=== PATIENT | female | born 1935 | race Caucasian/White ===

== ENCOUNTER 2016-05-27 09:55 | Inpatient (IN) ==
--- NOTE | 2016-05-27 10:08 | Emergency Department Note ---
Disposition Clinical Impression: Closed right hip fracture Qualifiers: Encounter type: initial encounter Qualified Code(s): S72.001A - Fracture of unspecified part of neck of right femur, initial encounter for closed fracture Disposition: Admitted As Inpatient Condition: Fair Forms: ED Satisfaction Letter Time of Disposition: 11:44 Fall HPI - General Chief Complaint: ED Fall Stated Complaint: Fall/ Right hip pain Time Seen by Provider: 05/27/16 10:01 Source: patient Mode of arrival: ambulatory Limitations: no limitations Nursing Notes Reviewed: Yes Vital Signs Reviewed: Yes - History of Present Illness HPI Narrative: 80-year-old states she was sitting paying bills for about an hour when she stood up she fell causing injury to her right hip. She has external rotation and shortening of the leg. She denies other injury. 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 From: standing Fall Witnessed: no Place Fall Occurred: home Loss of Consciousness: none Prolonged Down Time?: no Symptoms Prior to Fall: none Context: tripped/slipped Location of injury - extremities: Right: hip Severity: moderate, severe Quality: aching Associated symptoms (after fall): Reports: denies - Related Data Allergies Allergy/AdvReac Type Severity Reaction Status Date / Time No Known Allergies Allergy Verified 05/27/16 09:57 Constitutional: Denies: fever, chills, weakness, weight change Eyes: Denies: eye pain, eye discharge, vision change ENT ED: Denies: ear pain, throat pain, dental pain, hearing loss, epistaxis, congestion, dysphagia Cardiovascular: Denies: chest pain, palpitations, dyspnea on exertion, edema, syncope Respiratory: Denies: cough, dyspnea, wheezes, hemoptysis, stridor Gastrointestinal: Denies: abdominal pain, nausea, vomiting, diarrhea, constipation, hematemesis, melena, hematochezia Genitourinary: Denies: dysuria, frequency, hematuria, discharge Musculoskeletal: Reports: arthralgia. Denies: back pain, neck pain, myalgia Integumentary: Denies: rash, abrasion, lesions Neurological: Denies: headache, weakness, numbness, paresthesias, confusion, abnormal gait, vertigo Psychiatric: Denies: anxiety, depression, suicidal thoughts, homicidal thoughts , auditory hallucinations, visual hallucinations Endocrine: Denies: fatigue Hematological/Lymphatic: Denies: easy bleeding, easy bruising Allergic/Immunologic: Denies: facial swelling, urticaria Physical Exam - General Limitations: no limitations General appearance: alert, in no apparent distress - Head Head exam: atraumatic, normocephalic, normal inspection - Eye Eye exam: Present: normal appearance, PERRL, EOMI - ENT ENT exam: normal exam, normal oropharynx, mucous membranes moist - Neck Neck exam: Present: normal inspection, full ROM, trachea midline - Chest Chest inspection: Present: normal inspection, symmetric chest wall rise - Respiratory Respiratory exam: Present: normal lung sounds bilaterally - Cardiovascular Cardiovascular exam: Present: regular rate, normal rhythm, normal heart sounds - Abdominal Exam Abdominal exam: Present: soft, Non-Tender. Absent: tenderness, distention, guarding, rebound, rigidity - Expanded Lower Extremity Exam Hip/Pelvis exam: Present: tenderness, external rotation, shortening Neurovascular/Tendon exam: Absent: motor deficit, sensory deficit, tendon deficit Gait: not tested/not observed - Back Exam Back exam: Present: normal inspection, full ROM. Absent: tenderness - Neurological Exam Neurological exam: Present: alert, oriented X3 - Psychiatric Psychiatric exam: Present: normal affect, normal mood - Skin Skin exam: Present: warm, dry, intact, normal color Course - Reevaluation(s) Reevaluation #1: 80-year-old with a intertrochanteric fracture of the hip. Preop workup included chest x-ray which showed a possible pneumonia. I did review this with the hospitalist were to go ahead and just give her initial dose of antibiotics blood cultures and get a 2 view x-ray of the chest. She has had a cough. Time: 11:38 - Consultations Consultation #1: Discussed with Dr. Hernandez, admitted to hospitalist Time: 11:20 Consultation #2: Discussed with Yvette Lao CASINO ATTENDANT, admit. Time: 11:40 Vital Signs Temperature 97.9 F 05/27/16 09:57 Pulse Rate 64 05/27/16 09:57 Respiratory Rate 16 05/27/16 09:57 Blood Pressure 94/61 05/27/16 09:57 O2 Sat by Pulse Oximetry 91 L 05/27/16 09:57 Temperature 97.9 F 05/27/16 09:57 Pulse Rate 64 05/27/16 09:57 Respiratory Rate 16 05/27/16 09:57 Blood Pressure 94/61 05/27/16 09:57 O2 Sat by Pulse Oximetry 91 L 05/27/16 09:57 Oxygen Delivery Oxygen Delivery Room Air Fall - Lab Data Lab results reviewed: Yes I reviewed the patient's lab results. Result diagrams: 05/27/16 10:21 05/27/16 10:21 Lab Results 05/27/16 05/27/16 05/27/16 Range/Units 10:21 10:21 10:21 WBC 11.5 H (4.3-11.1) K/mcL RBC 2.70 L (3.82-4.97) M/mcL Hgb 9.4 L (11.5-15.4) g/dL Hct 28.4 L (35.3-44.9) % MCV 105.2 H (83.0-100.0) fL MCH 34.8 H (28.0-33.3) pg MCHC 33.1 (31.6-35.5) g/dL RDW 17.2 H (11.5-14.5) % Plt Count 206 (140-400) K/mcL MPV 12.0 (9.4-12.4) fL Immature Gran % 0.5 (0-4) % Seg Neutrophils % 63.9 % Lymphocytes % 22.0 % Monocytes % 8.9 % Eosinophils % 4.2 % Basophils % 0.5 % Neutrophils # 7.4 (1.6-8.9) K/mcL Lymphocytes # 2.5 (0.6-4.6) K/mcL Monocytes # 1.0 (0.0-1.3) K/mcL Eosinophils # 0.5 (0.0-0.6) K/mcL Basophils # 0.1 (0.0-0.2) K/mcL Nucleated RBCs/100 WBC 0.3 H (0) /100 WBC Immature Plt Fraction 7.3 H (1.1-6.1) % PT 11.9 (9.4-12.1) Seconds INR 1.1 APTT 27.0 (26.0-36.0) Seconds Sodium 140 (136-145) mEq/L Potassium 4.0 (3.5-4.5) mEq/L Chloride 106 (98-109) mEq/L Carbon Dioxide 24 (19-29) mEq/L BUN 31 H (7-20) mg/dL Creatinine 1.27 H (0.57-1.11) mg/dL Est GFR ( Amer) 49 L (> 60) Est GFR (Non-Af Amer) 41 L (> 60) BUN/Creatinine Ratio 24 (6-26) Glucose 139 H (70-99) mg/dL Calculated Osmolality 299 (280-300) Calcium 9.0 (8.6-10.8) mg/dL Blood Type Antibody Screen 05/27/16 Range/Units 10:21 WBC (4.3-11.1) K/mcL RBC (3.82-4.97) M/mcL Hgb (11.5-15.4) g/dL Hct (35.3-44.9) % MCV (83.0-100.0) fL MCH (28.0-33.3) pg MCHC (31.6-35.5) g/dL RDW (11.5-14.5) % Plt Count (140-400) K/mcL MPV (9.4-12.4) fL Immature Gran % (0-4) % Seg Neutrophils % % Lymphocytes % % Monocytes % % Eosinophils % % Basophils % % Neutrophils # (1.6-8.9) K/mcL Lymphocytes # (0.6-4.6) K/mcL Monocytes # (0.0-1.3) K/mcL Eosinophils # (0.0-0.6) K/mcL Basophils # (0.0-0.2) K/mcL Nucleated RBCs/100 WBC (0) /100 WBC Immature Plt Fraction (1.1-6.1) % PT (9.4-12.1) Seconds INR APTT (26.0-36.0) Seconds Sodium (136-145) mEq/L Potassium (3.5-4.5) mEq/L Chloride (98-109) mEq/L Carbon Dioxide (19-29) mEq/L BUN (7-20) mg/dL Creatinine (0.57-1.11) mg/dL Est GFR ( Amer) (> 60) Est GFR (Non-Af Amer) (> 60) BUN/Creatinine Ratio (6-26) Glucose (70-99) mg/dL Calculated Osmolality (280-300) Calcium (8.6-10.8) mg/dL Blood Type O POSITIVE Antibody Screen POSITIVE - Radiology Data Radiology results reviewed: Yes I reviewed the patient's radiology results. Chest X-Ray 05/27/16 10:01 IMPRESSION: 1. Patchy opacity in the right mid to lower lung with questionable small right pleural effusion. Pneumonia is not excluded. Consider further evaluation with dedicated two view chest x-ray. 2. Large hiatal hernia. D/ / 05/27/2016 11:16:04 Anastasiia Arroyo MD / earno Interpreting Provider: Anastasiia Arroyo MD Hip X-Ray 05/27/16 10:01 IMPRESSION: Acute comminuted, mildly displaced traumatic right intertrochanteric femoral fracture. D/ / 05/27/2016 11:16:27 Anastasiia Arroyo MD / [email or web address] Interpreting Provider: Anastasiia Arroyo MD
[2016-05-27 10:30] LABS: Basophils # 0.1 K/mcL (0.0-0.2); Basophils % 0.5 %; Eosinophils # 0.5 K/mcL (0.0-0.6); Eosinophils % 4.2 %; Hematocrit 28.4 % (35.3-44.9); Hemoglobin 9.4 g/dL (11.5-15.4); Immature Granulocytes % 0.5 % (0-4); Immature Platelets 7.3 % (1.1-6.1); Lymphocytes # 2.5 K/mcL (0.6-4.6); Mean Corpuscular HGB Conc 33.1 g/dL (31.6-35.5); Mean Corpuscular Hemoglobin 34.8 pg (28.0-33.3); Mean Corpuscular Volume 105.2 fL (83.0-100.0); Monocytes % 8.9 %; Neutrophils # 7.4 K/mcL (1.6-8.9); Nucleated Red Blood Cells 0.3 /100 WBC (0); Platelet Count 206 K/mcL (140-400); Red Cell Distribution Width 17.2 % (11.5-14.5); Segmented Neutrophils % 63.9 %
[2016-05-27 10:34] LABS: INR 1.1; Prothrombin Time 11.9 Seconds (9.4-12.1)
[2016-05-27] MEDS ORDERED: Azithromycin 500 MG in D5% in Water 250 ML IVPB ONE (11:37)
[2016-05-27] MEDS ORDERED: Ondansetron 4 MG/2 ML VIAL ONE (11:49)
[2016-05-27] MEDS ORDERED: 0.9 % Sodium Chloride 1,000 ML ONE (13:00)
[2016-05-27] MEDS ORDERED: 0.9 % Sodium Chloride 500 ML IVC ONE ×2 (13:00→22:09)
[2016-05-27] MEDS ORDERED: Ondansetron 4 MG/2 ML VIAL IVP PRN (13:46)
[2016-05-27] MEDS ORDERED: Naloxone 0.4 MG/ML INJ IVP PRN (13:46)
[2016-05-27] MEDS ORDERED: traMADol 50 MG TABLET PO PRN (13:52)
[2016-05-27] MEDS ORDERED: *HR* Morphine 2 MG/ML SYRINGE IVP PRN (13:57)
[2016-05-27] MEDS ORDERED: 0.9 % Sodium Chloride 1,000 ML IVC SCH (14:00)
--- NOTE | 2016-05-27 15:25 | Orthopedic Consult Note ---
Date of Encounter: 05/27/16 Time of Encounter: 12:45 Assessment and Plan (1) Closed right hip fracture Current Visit: Yes Status: Acute Xrays showed right femur intertrochanteric fracture which will require surgical fixation. Plan for right hip IM nailing to be performed tomorrow by Dr. Cervantes. At first family was considering transferring the patient to [place] for surgery but later decided to stay here at [place]. I returned around 18:00 and discussed the procedure as well as r/b/a again with family and they agreed to proceed with surgery. Pending cardiac clearance. NPO after breakfast tomorrow. Pain and nausea control per hospitalist. Qualifiers: Encounter type: initial encounter Qualified Code(s): S72.001A - Fracture of unspecified part of neck of right femur, initial encounter for closed fracture History of Present Illness Chief complaint: Right hip pain HPI: Ms. Monique is a 80 year old female who presented to the ER today for right hip pain after falling today. She states she was sitting for awhile and when she stood up her legs were weak and she fell landing on the right hip. She had instant pain in the hip that did not radiate. No pain currently on exam after receiving pain medication. Denies n/t in legs. Denies pain anywhere else. Denies hitting head or LOC. Denies chest pain, SOB, fevers. She typically ambulates well and lives at home with . Past Med Surg Social Fam HX - Past Medical History Medical history: CHF, hyperlipidemia Psychiatric history: no psych history - Social History Smoking Status: Former smoker Smokeless Tobacco Status: No Alcohol use: none Drug use: none - Family History Mother Living Status: Age at : 44 Cause of : cerebral hemorrhage Sister Age at : 45 Cause of : cerebal hemmorge Brother Living Status: Cause of : Cancer Son Living Status: Age at : 51 Cause of : cerebal hemmorhage Medications and Allergies Aspirin 81 mg PO DAILY 05/27/16 [History] Famotidine [Pepcid] 20 mg PO BID 05/27/16 [History] Furosemide [Lasix] 20 mg PO DAILY 05/27/16 [History] Loperamide HCl [Anti-Diarrheal] 2 mg PO DAILY PRN 05/27/16 [History] Losartan/Hydrochlorothiazide [Hyzaar 100-25 Tablet] 1 each PO DAILY 05/27/16 [ History] Mv-Mn/FA/Vit K/Lycop/Lut/Coq10 [Daily Multivitamin Capsule] 1 tab PO DAILY 05/27 [History] Potassium Chloride [Klor-Con Sprinkle] 10 meq PO DAILY 05/27/16 [History] Allergies No Known Allergies Allergy (Verified 05/27/16 12:29) All Systems Reviewed: A 10-system review of systems was performed and is negative for pertinent findings except as documented above in the HPI. - Constitutional Constitutional: as per HPI - Cardiovascular Cardiovascular: as per HPI - Respiratory Respiratory: as per HPI - Musculoskeletal Musculoskeletal: as per HPI Physical Exam - Constitutional Vitals: Temp Pulse Resp BP Pulse Ox 97.9 F 65 16 100/49 96 05/27/16 09:57 05/27/16 14:00 05/27/16 14:30 05/27/16 14:30 05/27/16 14:00 - Hip right Tenderness with palpation: anterior, posterior ROM: extension: abnormal (No open wounds, erythema or ecchymosis noted to the right hip, RLE is shortened and externaly rotated. Tenderness to palpation of posterior and anterior hip, ROM of hip and knee restricted secondary to pain and known fracture, good dorsiflexion of foot, no calf pain to palpation, NV intact.) Results - Labs Result Diagrams: 05/27/16 10:21 05/27/16 10:21 Labs: Abnormal lab results WBC 11.5 K/mcL (4.3-11.1) H 05/27/16 10:21 RBC 2.70 M/mcL (3.82-4.97) L 05/27/16 10:21 Hgb 9.4 g/dL (11.5-15.4) L 05/27/16 10:21 Hct 28.4 % (35.3-44.9) L 05/27/16 10:21 MCV 105.2 fL (83.0-100.0) H 05/27/16 10:21 MCH 34.8 pg (28.0-33.3) H 05/27/16 10:21 RDW 17.2 % (11.5-14.5) H 05/27/16 10:21 Nucleated RBCs/100 WBC 0.3 /100 WBC (0) H 05/27/16 10:21 Immature Plt Fraction 7.3 % (1.1-6.1) H 05/27/16 10:21 BUN 31 mg/dL (7-20) H 05/27/16 10:21 Creatinine 1.27 mg/dL (0.57-1.11) H 05/27/16 10:21 Est GFR ( Amer) 49 (> 60) L 05/27/16 10:21 Est GFR (Non-Af Amer) 41 (> 60) L 05/27/16 10:21 Glucose 139 mg/dL (70-99) H 05/27/16 10:21 All other labs normal. - Diagnostic results Hip x-ray: report reviewed, image reviewed Consult Discharge Plan - Plan Referrals: Adriel Thomas Jr, MD [Primary Care Provider] - - Attending Attestation Case and plan of care was discussed with the supervising physician who was available for all aspects of care.
--- NOTE | 2016-05-27 15:53 | Internal Med History&Physical ---
<Claribel Agudelo - Last Filed: 05/27/16 19:55> Internal Medicine - H&P: HPI History of present illness: Ms. Monique is a 80 year old female Internal Medicine - H&P: Meds Aspirin 81 mg PO DAILY 05/27/16 [History] Famotidine [Pepcid] 20 mg PO BID 05/27/16 [History] Furosemide [Lasix] 20 mg PO DAILY 05/27/16 [History] Loperamide HCl [Anti-Diarrheal] 2 mg PO DAILY PRN 05/27/16 [History] Losartan/Hydrochlorothiazide [Hyzaar 100-25 Tablet] 1 each PO DAILY 05/27/16 [ History] Mv-Mn/FA/Vit K/Lycop/Lut/Coq10 [Daily Multivitamin Capsule] 1 tab PO DAILY 05/27 [History] Potassium Chloride [Klor-Con Sprinkle] 10 meq PO DAILY 05/27/16 [History] Allergies No Known Allergies Allergy (Verified 05/27/16 12:29) All Systems PM: A 10-system review of systems was performed and is negative for pertinent findings except as documented above in the HPI. - Constitutional Vitals: Temp Pulse Resp BP Pulse Ox 97.9 F 65 16 100/49 96 05/27/16 09:57 05/27/16 14:00 05/27/16 14:30 05/27/16 14:30 05/27/16 14:00 Internal Med - H&P Results - Labs CBC & Chem 7: 05/27/16 10:21 05/27/16 10:21 - Attending Attestation I examined this patient and reviewed laboratory, imaging and all diagnostic data. My medical decision-making was reviewed with Margaux Trujillo CNP. I agree with the documented findings, disposition and treatment plan as described above. 80-year-old female with past medical history of hypertension, CKD,mod diastolic HF, mod TR, and sev pulm HTN per Echo in 10/2015. Patient had a mechanical fall at home on his right side. X-ray of her hip showed acute right hip fracture. Patient reports bilateral lower extremity swelling that is chronic. Physical examination is positive for cardiac murmur, and LE edema. Cardiology consulted for pre-op clearance. Hgb is 9.4. will continue to monitor and if below 8 will transfuse. kidney function at baseline. <Margaux Trujillo - Last Filed: 05/28/16 01:41> Date of Encounter: 05/27/16 Time of Encounter: 15:51 Assessment and Plan (1) Closed right hip fracture Current visit: Yes Status: Acute Patient suffered a fall at home with right leg pain. Xray of her right hip showed acute comminuted mildly displaced traumatic right intertrochanteric femoral fracture. Orthopedic surgery was consulted and Dr. Cervantes plans to operate late tomorrow afternoon. NPO after breakfast tomorrow Cardiology consulted for surgical clearance. Qualifiers: Encounter type: initial encounter Qualified Code(s): S72.001A - Fracture of unspecified part of neck of right femur, initial encounter for closed fracture (2) CAP (community acquired pneumonia) Current visit: Yes Status: Acute Patient reports cough over the last few days, but denies any fever, chills, loss of appetite or shortness of breath. She is afebrile and WBC is 11.5. CXR showed ground-glass airspace opacification in the right lower lobe and small pleural effusion. Azithromycin and Ceftriaxone IVPB IV fluids 0.9NS at 100mL/hr (3) Congestive heart failure Current visit: Yes Status: Chronic Patient does not report any history of CHF, She takes 20mg lasix for leg swelling. On exam, patient with systolic murmur and irregular rhythm. On review of records, patient had echocardiogram in October which showed EF 60-65%, normal LV size and function, moderate LV diastolic dysfunction, mild aortic stenosis, mild mitral stenosis, moderate tricuspid regurgitation, Severe pulmonary hypertension with RVSP of 67mmHg. Holding lasix for now as we are giving fluids for hypotension. Repeat echo ordered Cardiology consulted for surgical clearance. Qualifiers: Congestive heart failure type: diastolic Congestive heart failure chronicity: chronic Qualified Code(s): I50.32 - Chronic diastolic (congestive ) heart failure (4) Pain Current visit: Yes Status: Acute Pain related to right hip fracture PRN morphine narcan PRN for respiratory depression (5) Nausea Current visit: Yes Status: Acute Patient with nausea. PRN Zofran for nausea (6) Chronic kidney disease Current visit: Yes Status: Acute Patient's creatinine of 1.27 is down from previous values. Qualifiers: Chronic kidney disease stage: stage 3 (moderate) Qualified Code(s): N18.3 - Chronic kidney disease, stage 3 (moderate) (7) Anemia Current visit: Yes Status: Acute Patient with known history of anemia and has taken iron supplements in the past. Hgb of 9.4 is consistent with her baseline. No reports of bleeding. No indication for transfusion. Repeat CBC in the morning. Qualifiers: Anemia type: iron deficiency Iron deficiency anemia type: unspecified iron deficiency Qualified Code(s): D50.9 - Iron deficiency anemia, unspecified (8) Hypertension Current visit: Yes Status: Acute Patient takes Losartan/HCTZ for hypertension at home however, blood pressure has been running low. Will hold for now and continue to assess. IV fluids 0.9NS at 100mL/hr Qualifiers: Hypertension type: essential hypertension Qualified Code(s): I10 - Essential (primary) hypertension (9) DVT prophylaxis Current visit: Yes Status: Acute anti-embolic stockings calf compressors start pharmacologic prophylaxis after surgery Internal Medicine - H&P: HPI Chief complaint: fall, hip pain Admitted From: Emergency Dept Plans for Post Hospital Care: Home History of present illness: Ms. Monique is a 80 year old female with history of hypertension, anemia, CKD and remote cerebral aneurysm status post surgical repair, presented to the emergency department today after suffering a fall at home resulting in hip pain. Patient reports she was sitting at the table and felt like her right leg fell asleep, when she stood up she lost her balance and fell. She denies feeling dizzy or lightheadedness upon standing, she denies hitting her head, or losing consciousness. She had been in her right leg and was unable to ambulate. She reports she has had a cough the last few days. She denies any chest pain, palpitations, shortness of breath, fever, chills, sweats. The squad was called and she was brought to the emergency room. She received morphine in the ambulance and became nauseous. Evaluation in the emergency department included an x-ray of her right hip which showed acute comminuted mildly displaced traumatic right intertrochanteric femoral fracture. Dr. Cervantes was consult. Chest x-ray revealed groundglass airspace opacification in the right lower lobe and small pleural effusion. Patient's hemoglobin was 9.4 consistent with her baseline anemia, patient's creatinine was elevated to 1.27, but this is below her previous baseline. On exam, patient is pale, mildly diaphoretic, reporting she still feeling nauseous. Heart had irregular rhythm with systolic murmur, and she was bradycardic. Lungs were clear except for mild crackles in the right base. Her right leg was externally rotated and shortened. Sensation and movement intact in bilateral lower extremities. Positive peripheral pulses and capillary refill. She had +1 edema in left lower extremity and +2 in her right lower extremity. Past Med Surg Social Fam HX - Past Medical History Medical history: CHF, hyperlipidemia, hypertension, other (remote cerebral aneurysm s/p repair) Psychiatric history: no psych history - Past Surgical History Surgical History: cholecystectomy, vascular surgery (cerebral aneurysm repair) - Social History Smoking Status: Never smoker Smokeless Tobacco Status: No Alcohol use: none Drug use: none - Family History Mother Living Status: Age at : 44 Cause of : cerebral hemorrhage Sister Age at : 45 Cause of : cerebal hemmorge Brother Living Status: Cause of : Cancer Son Living Status: Age at : 51 Cause of : cerebal hemmorhage All Systems PM: A 10-system review of systems was performed and is negative for pertinent findings except as documented above in the HPI. - Constitutional Constitutional: falls, no chills, no fever(s), no night sweats - EENT Eyes: no change in vision, no discharge, no pain, no photophobia Ears: no ear discharge, no ear pain, no tinnitus Nose, mouth and throat: no dysphagia, no nasal discharge, no neck pain, no sore throat - Cardiovascular Cardiovascular ROS IM: diaphoresis, no chest pain, no dyspnea, no lightheadedness, no palpitations, no syncope - Respiratory Respiratory: cough, no dyspnea, no wheezing, no excessive phlegm production - Gastrointestinal Gastrointestinal: no abdominal pain, no diarrhea, no hematemesis, no hematochezia, no melena, no nausea, no vomiting - Genitourinary Genitourinary: no change in urinary stream, no dysuria, no flank pain, no hematuria - Musculoskeletal Musculoskeletal ROS IM: deformity (right leg rotated and shortened), limited range of motion (RLE), no numbness, no tingling - Integumentary Integumentary IM: no rash, no unusual bruising - Neurological Neurological ROS: no confusion, no convulsions, no focal weakness, no numbness, no tingling, no tremor(s) - Hematologic/Lymphatic Hematologic/Lymphatic: no easy bruising - Constitutional Vitals: Temp Pulse Resp BP Pulse Ox 97.9 F 65 16 100/49 96 05/27/16 09:57 05/27/16 14:00 05/27/16 14:30 05/27/16 14:30 05/27/16 14:00 General appearance: Present: mild distress, A&O X 3 - Head Head exam: Present: atraumatic, normocephalic - Eye Eye exam: Present: PERRL, conjuntiva pink, sclera anicteric Pupils: Present: PERRL - Neck Neck exam general surgery: Present: supple, trachea midline. Absent: lymphadenopathy - Respiratory Respiratory exam: Present: CTAB. Absent: accessory muscle use, rales, rhonchi, wheezes Additional comments: mild crackles in right base - Cardiovascular Cardiovascular exam: Present: bradycardia, irregular rhythm, +S1, +S2, systolic murmur. Absent: diastolic murmur, gallop, rubs - GI/Abdominal GI/Abdominal exam: Present: normal bowel sounds, soft, no peritoneal signs. Absent: distended, tenderness - Extremities Exam Extremities exam: Present: joint swelling, normal capillary refill, pedal edema (LLE +1, RLE +2 ), warm, radial pulses palpable and symetrical. Absent: calf tenderness, cyanotic Additional comments: RLE externally rotated and shortened. - Neurological Exam Neurological exam: Present: CN II-XII intact, oriented X3, no focal deficits. Absent: facial droop, speech deficit - Skin Skin exam: Present: dry, intact Internal Med - H&P Results - Labs CBC & Chem 7: 05/27/16 10:21 05/27/16 10:21 Labs: All Lab Results (24 Hours) 05/27/16 05/27/16 05/27/16 Range/Units 10:21 10:21 10:21 WBC 11.5 H (4.3-11.1) K/mcL RBC 2.70 L (3.82-4.97) M/mcL Hgb 9.4 L (11.5-15.4) g/dL Hct 28.4 L (35.3-44.9) % MCV 105.2 H (83.0-100.0) fL MCH 34.8 H (28.0-33.3) pg MCHC 33.1 (31.6-35.5) g/dL RDW 17.2 H (11.5-14.5) % Plt Count 206 (140-400) K/mcL MPV 12.0 (9.4-12.4) fL Immature Gran % 0.5 (0-4) % Seg Neutrophils % 63.9 % Lymphocytes % 22.0 % Monocytes % 8.9 % Eosinophils % 4.2 % Basophils % 0.5 % Neutrophils # 7.4 (1.6-8.9) K/mcL Lymphocytes # 2.5 (0.6-4.6) K/mcL Monocytes # 1.0 (0.0-1.3) K/mcL Eosinophils # 0.5 (0.0-0.6) K/mcL Basophils # 0.1 (0.0-0.2) K/mcL Nucleated RBCs/100 WBC 0.3 H (0) /100 WBC Immature Plt Fraction 7.3 H (1.1-6.1) % PT 11.9 (9.4-12.1) Seconds INR 1.1 APTT 27.0 (26.0-36.0) Seconds Sodium 140 (136-145) mEq/L Potassium 4.0 (3.5-4.5) mEq/L Chloride 106 (98-109) mEq/L Carbon Dioxide 24 (19-29) mEq/L BUN 31 H (7-20) mg/dL Creatinine 1.27 H (0.57-1.11) mg/dL Est GFR ( Amer) 49 L (> 60) Est GFR (Non-Af Amer) 41 L (> 60) BUN/Creatinine Ratio 24 (6-26) Glucose 139 H (70-99) mg/dL Calculated Osmolality 299 (280-300) Calcium 9.0 (8.6-10.8) mg/dL Blood Type Antibody Screen Antibody Identification 05/27/16 Range/Units 10:21 WBC (4.3-11.1) K/mcL RBC (3.82-4.97) M/mcL Hgb (11.5-15.4) g/dL Hct (35.3-44.9) % MCV (83.0-100.0) fL MCH (28.0-33.3) pg MCHC (31.6-35.5) g/dL RDW (11.5-14.5) % Plt Count (140-400) K/mcL MPV (9.4-12.4) fL Immature Gran % (0-4) % Seg Neutrophils % % Lymphocytes % % Monocytes % % Eosinophils % % Basophils % % Neutrophils # (1.6-8.9) K/mcL Lymphocytes # (0.6-4.6) K/mcL Monocytes # (0.0-1.3) K/mcL Eosinophils # (0.0-0.6) K/mcL Basophils # (0.0-0.2) K/mcL Nucleated RBCs/100 WBC (0) /100 WBC Immature Plt Fraction (1.1-6.1) % PT (9.4-12.1) Seconds INR APTT (26.0-36.0) Seconds Sodium (136-145) mEq/L Potassium (3.5-4.5) mEq/L Chloride (98-109) mEq/L Carbon Dioxide (19-29) mEq/L BUN (7-20) mg/dL Creatinine (0.57-1.11) mg/dL Est GFR ( Amer) (> 60) Est GFR (Non-Af Amer) (> 60) BUN/Creatinine Ratio (6-26) Glucose (70-99) mg/dL Calculated Osmolality (280-300) Calcium (8.6-10.8) mg/dL Blood Type O POSITIVE Antibody Screen POSITIVE Antibody Identification Known Anti-M - Diagnostic Studies Chest x-ray Additional comments: Chest X-Ray 05/27/16 11:37 IMPRESSION: Ground-glass airspace opacification in the right lower lobe and small pleural effusion. D/ / Rodo Nicholas MD / Rodo Nicholas MD Interpreting Provider: Rodo Nicholas MD Other Images Additional comments: Hip X-Ray 05/27/16 10:01 IMPRESSION: Acute comminuted, mildly displaced traumatic right intertrochanteric femoral fracture. D/ / 05/27/2016 11:16:27 Anastasiia Arroyo MD / prieto Interpreting Provider: Anastasiia Arroyo MD
--- NOTE | 2016-05-27 19:01 | Anesthesia Evaluation PreOp ---
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 History: Denies Any Significant HX Other Medical History: Renal (CRD) Anesthesia History: No Prior Anesthetic Complications, Past Anesthesia (Remote cerebral aneurysm repair, GB) : No Alcohol Use: none Drug use: none Medications and Allergies Aspirin 81 mg PO DAILY 05/27/16 [History] Famotidine [Pepcid] 20 mg PO BID 05/27/16 [History] Furosemide [Lasix] 20 mg PO DAILY 05/27/16 [History] Loperamide HCl [Anti-Diarrheal] 2 mg PO DAILY PRN 05/27/16 [History] Losartan/Hydrochlorothiazide [Hyzaar 100-25 Tablet] 1 each PO DAILY 05/27/16 [ History] Mv-Mn/FA/Vit K/Lycop/Lut/Coq10 [Daily Multivitamin Capsule] 1 tab PO DAILY 05/27 [History] Potassium Chloride [Klor-Con Sprinkle] 10 meq PO DAILY 05/27/16 [History] Allergies No Known Allergies Allergy (Verified 05/27/16 12:29) - Meds/Allergy Pre-op Review Medications Reviewed: Yes Allergies Reviewed: Yes Beta Blockers on Current Med List: No Anesthesia Results - Labs 05/27/16 10:21 05/27/16 10:21 ECHO 10/26/15 EF-60-65% Mod. LV diastolic dysfunction Mod. Aortic stenosis - Imaging EKG: other (Ordered, not done yet) Anesthesia Exam O2 Sat Height 1.45 m Weight 68.946 kg O2 Sat by Pulse Oximetry 96 O2 Sat by Pulse Oximetry 98 O2 Sat by Pulse Oximetry 98 O2 Sat by Pulse Oximetry 98 O2 Sat by Pulse Oximetry 100 O2 Sat by Pulse Oximetry 100 O2 Sat by Pulse Oximetry 91 Vital Signs Temp Pulse Resp BP Pulse Ox 97.9 F 64 16 94/61 91 L 05/27/16 09:57 05/27/16 09:57 05/27/16 09:57 05/27/16 09:57 05/27/16 09:57 Vital Signs/O2 Sat, Most Current Temp Pulse Resp BP Pulse Ox 97.9 F 65 16 100/49 96 05/27/16 09:57 05/27/16 14:00 05/27/16 14:30 05/27/16 14:30 05/27/16 14:00 Height: 4'9'' Weight: 152# NPO (# of Hours): > 8 hrs Pain Scale: 0 Pain Scale Used: Numeric (1 - 10) - HEENT Pupil (Motor): Pupils equal, EOMI Mallampati: II Teeth: Edentulous Denture Type: Upper: Complete, Partial Oral Opening: Greater than 3 - GANG BORE OPERATOR LOC: Oriented GANG BORE OPERATOR Motor: Normal RUE, Normal LUE, Normal RLE, Normal LLE, Normal Face GANG BORE OPERATOR Sensory: Normal: RUE, LUE, RLE, LLE, Face - Cardiac Rhythm: Regular Murmur: None JVD: No Carotid Bruit: No - Pulmonary Breath Sounds: bilateral Clear Respiratory Effort: Symmetrical Anesthesia Assess/Plan ASA Score: 3 Modified Pullman Scale for Level of Consciousness: Cooperative, oriented, and tranquil Anesthetic Plan: General Autologous Blood: Yes Monitoring Plan: Standard Monitors Recovery Plan: PACU
[2016-05-27] MEDS ORDERED: Famotidine 20 MG TABLET PO SCH (21:00)
[2016-05-28] MEDS ORDERED: 0.9 % Sodium Chloride 250 ML IVC ONE (04:12)
[2016-05-28 05:20] LABS: Basophils % 0.4 %; Eosinophils # 0.1 K/mcL (0.0-0.6); Eosinophils % 1.3 %; Hemoglobin 7.5 g/dL (11.5-15.4); Immature Granulocytes % 0.4 % (0-4); Lymphocytes # 1.2 K/mcL (0.6-4.6); Lymphocytes % 17.2 %; Mean Corpuscular HGB Conc 32.6 g/dL (31.6-35.5); Mean Corpuscular Volume 107.5 fL (83.0-100.0); Mean Platelet Volume 12.7 fL (9.4-12.4); Monocytes % 14.6 %; Neutrophils # 4.4 K/mcL (1.6-8.9); Nucleated Red Blood Cells 0.3 /100 WBC (0); Platelet Count 146 K/mcL (140-400); Red Blood Count 2.14 M/mcL (3.82-4.97); Red Cell Distribution Width 17.3 % (11.5-14.5); Segmented Neutrophils % 66.1 %
[2016-05-28 05:35] LABS: Calcium 7.9 mg/dL (8.6-10.8); Potassium 4.5 mEq/L (3.5-4.5)
[2016-05-28] MEDS ORDERED: Furosemide 20 MG TABLET PO SCH (09:00)
[2016-05-28] MEDS ORDERED: Aspirin 81 MG TAB.CHEW PO SCH (09:00)
[2016-05-28] MEDS ORDERED: 0.9 % Sodium Chloride 250 ML ONE (09:29)
--- NOTE | 2016-05-28 09:30 | ECHO - Doppler Report ---
Echocardiogram Name: Mary Monique Date of Study: 05/27/2016 Date: 1935 Ht: 57.0 in Medical Record#: [id number] Age: 80 Wt: 152.0 lb Gender: Female BSA: 1.6 Order #: [id number] Location: [facility] Room #: [facility] Reading Physician: Gabino Ruiz MD, LOCATED [facility] Director Of Customer Service: Mireya Rangel Ordering Physician: Margaux Trujillo CNP Primary Physician: Adriel Thomas MD Indications: Pre-op clearance, abnormal EKG Impressions: Sinus rhythm with frequent PACs. Normal LV systolic function, LVEF 60-65%. Moderate left ventricular diastolic dysfunction. Normal right ventricular size and function. Mildly dilated left atrium. Moderately thickened/calcified aortic valve leaflets. Valve morphology was not well visualized. Probably trileaflet. Mild-moderate aortic stenosis. Moderate tricuspid regurgitation. Mild-moderate pulmonary hypertension. Estimated RVSP = 46 mmHg. There is a small pericardial effusion seen adjacent to the right atrium. There is no echocardiographic evidence of tamponade. Left Ventricular Wall Motion: Rest Echo Findings All wall segments showed normal motion. Findings: Study Quality * Technically adequate exam. ECG Findings * Sinus rhythm with frequent PACs. Left Ventricle * Normal LV systolic function, LVEF 60-65%. * Normal LV chamber size and wall thickness. * Moderate left ventricular diastolic dysfunction. Right Ventricle * Normal right ventricular size and function. Left Atrium * Mildly dilated left atrium. Right Atrium * Normal right atrial size. Aorta * Normally sized aortic root. Pericardium * There is a small pericardial effusion seen adjacent to the right atrium. * There is no echocardiographic evidence of tamponade. IVC * Normal IVC dimensions and inspiratory collapse. Aortic Valve * Moderately thickened/calcified aortic valve leaflets. Valve morphology was not well visualized. Probably trileaflet. * Mild-moderate aortic stenosis. * Trace aortic regurgitation. Mitral Valve * Moderate mitral annular calcification * No mitral stenosis. * Trace mitral regurgitation. Tricuspid Valve * Normal tricuspid valve structure. * No tricuspid stenosis. * Moderate tricuspid regurgitation. * Mild-moderate pulmonary hypertension. Estimated RVSP = 46 mmHg. Pulmonic Valve * Pulmonic valve not well visualized. * No pulmonic stenosis. * Trace pulmonic regurgitation. History Hypertension Family History of CAD Congestive Heart Failure 10/26/2015 a Previous Echo was performed. Measurements: BP: 100/ 49 2D Normal Values RVIDd: 2.20 cm IVSd: .90 cm 0.6 - 1.0 cm LVIDd: 3.70 cm 3.7 - 5.6 cm LVPWd: .90 cm 0.6 - 1.1 cm LVIDs: 2.40 cm 1.5 - 3.6 cm AO: 2.50 cm < 4.0 cm %FS: 35.10 cm >25 % LVOT Diam: 2.00 cm LA volume: 58 Mitral Valve Peak E:1.26 m/sec Peak A:1.25 m/sec E/A Ratio:1 Peak E' Lat Wilder:6.24 cm/s Peak E' Med Wilder:8.09 cm/s E/E' Lat Ratio:20.2 E/E' Med Ratio:15.6 Aortic Valve Peak Wilder:2.50 m/sec Peak Grad:25.00 mmHg Mean Grad:14.00 mmHg Valve Area:1.39 cm2 Tricuspid Valve TV Regurg Peak Grad: 43.00mmHg TV Regurg Peak Wilder: 3.28m/sec Updated by Gabino Ruiz MD, FACC on 05/28/2016 9:26:29 AM electronically signed on 05/28/2016 9:27:15 AM with status of Final Wall Motion Wagner: 1=Normal, 2=Hypokinesis, 3=Akinesis, 4=Dyskinesis, 5=Aneurysmal, 6=Hyperkinetic, X=Not Visualized (Blank)=Missing
--- NOTE | 2016-05-28 12:27 | Internal Med Progress Note ---
Date of Encounter: 05/28/16 Time of Encounter: 07:30 - Assessment and plan (1) Closed right hip fracture Current Visit: Yes Status: Acute Assessment and plan: Patient suffered a mechanical fall at home with right leg pain. Xray of her right hip showed acute comminuted mildly displaced traumatic right intertrochanteric femoral fracture. Appreciate Orthopedic surgery help. PLAN for surgery this afternoon. Cardiology consulted for surgical clearance. Qualifiers: Encounter type: initial encounter Qualified Code(s): S72.001A - Fracture of unspecified part of neck of right femur, initial encounter for closed fracture (2) Acute blood loss anemia Current Visit: Yes Status: Acute Assessment and plan: PAtient has Chronic anemia but baseline Hgb is ~10. This morning, hgb dropped to 7.5. This is secondary to hip fracture. Transfuse 1 unit PRBC. repeat Hgb after transfusion. (3) CAP (community acquired pneumonia) Current Visit: Yes Status: Acute Assessment and plan: Patient reports cough over the last few days, but denies any fever, chills, loss of appetite or shortness of breath. She is afebrile and WBC is 11.5. CXR showed ground-glass airspace opacification in the right lower lobe and small pleural effusion. Azithromycin and Ceftriaxone IVPB REceived IVF. slowly improving. (4) Hypotension Current Visit: Yes Status: Acute Assessment and plan: hypovolemic hypotension due to acute blood loss. 10/2015: Echocardiogram showed EF 60-65%, normal LV size and function, moderate LV diastolic dysfunction, mild aortic stenosis, mild mitral stenosis, moderate tricuspid regurgitation, Severe pulmonary hypertension with RVSP of 67mmHg. Troponin negative x1 MAP adequate. received IV fluids. Now transfusing PRBC. Qualifiers: Hypotension type: other hypotension type Qualified Code(s): I95.89 - Other hypotension (5) Diastolic heart failure Current Visit: Yes Status: Acute Assessment and plan: Chronic LE edema and poor functional capacity. 10/2015: Echocardiogram showed EF 60-65%, normal LV size and function, moderate LV diastolic dysfunction, mild aortic stenosis, mild mitral stenosis, moderate tricuspid regurgitation, Severe pulmonary hypertension with RVSP of 67mmHg. check BNP. Qualifiers: Heart failure chronicity: chronic Qualified Code(s): I50.32 - Chronic diastolic (congestive) heart failure (6) Chronic kidney disease Current Visit: Yes Status: Acute Assessment and plan: at baseline. Close monitoring. avoid nephrotoxic agents as possible. Qualifiers: Chronic kidney disease stage: stage 3 (moderate) Qualified Code(s): N18.3 - Chronic kidney disease, stage 3 (moderate) (7) Pain Current Visit: Yes Status: Acute Assessment and plan: IV morphine prn - Subjective Interval history: Her BP is 78/51, MAP 64. Patient denies any shortness of breath, dizziness, headaches or chest pain. Her only complaint is pain in her right hip. - Constitutional Vitals: Temp Pulse Resp BP Pulse Ox 98.2 F 85 18 74/62 98 05/28/16 10:05 05/28/16 10:05 05/28/16 10:05 05/28/16 10:05 05/28/16 10:05 General appearance: Present: cooperative, mild distress, A&O X 3, pleasant, no acute distress, answers questions appropriately - Respiratory Respiratory exam: Present: rales (at right lung base) - Cardiovascular Cardiovascular exam: Present: RRR - GI/Abdominal GI/Abdominal exam: Present: normal bowel sounds, soft. Absent: distended, tenderness - Extremities Exam Extremities exam: Present: pedal edema - Back Exam Back exam: Absent: CVA tenderness (L), CVA tenderness (R) - Neurological Exam Neurological exam: Present: alert, oriented X3, no focal deficits, strengths equal and symetr throughout. Absent: facial droop, speech deficit - Skin Skin exam: Absent: rash Internal Medicine: Result - Labs CBC & Chem 7: 05/28/16 05:10 05/28/16 05:10 Labs: Short CBC 05/28/16 Range/Units 05:10 WBC 6.7 (4.3-11.1) K/mcL Hgb 7.5 L D (11.5-15.4) g/dL Hct 23.0 L (35.3-44.9) % Plt Count 146 (140-400) K/mcL Neutrophils # 4.4 (1.6-8.9) K/mcL BMP 05/28/16 05:10 Sodium 138 Potassium 4.5 Chloride 106 Carbon Dioxide 22 BUN 36 H Creatinine 1.54 H Glucose 87 Calcium 7.9 L Cardiac Enzymes 05/28/16 Range/Units 05:10 Troponin I 0.00 (0-0.03) ng/mL - ABG Interpretation ABG results: PT/INR, D-dimer PT 11.9 Seconds (9.4-12.1) 05/27/16 10:21 Consult Discharge Plan - Plan Referrals: Adriel Thomas Jr, MD [Primary Care Provider] -
--- NOTE | 2016-05-28 12:39 | Cardiology Consult Note ---
<Mallory Foster Tika - Last Filed: 05/28/16 12:48> Date of Encounter: 05/28/16 Time of Encounter: 11:00 Assessment and Plan (1) Congestive heart failure Current Visit: Yes Status: Chronic Patient ECHO LVEF 60-65%, moderate LV diastolic dysfunction, moderate thick/ calcified aortic valve, mild to moderate , moderate TR, mild to moderate Pulmonary HTN, pericardial effusion adjacent to Right atium, no evidence of tamponade Echo unchanged October, showed EF 60-65%, normal LV size and function, moderate LV diastolic dysfunction, mild aortic stenosis, mild mitral stenosis, moderate tricuspid regurgitation, Severe pulmonary hypertension with RVSP of 67mmHg. Patient takes 20mg lasix, which is being held due to hypotension and hypovolemia EKG NSR with frequent PACs Plan: Hold lasx for hypotension/hypovolemia Qualifiers: Congestive heart failure type: diastolic Congestive heart failure chronicity: chronic Qualified Code(s): I50.32 - Chronic diastolic (congestive ) heart failure (2) Acute blood loss anemia Current Visit: Yes Status: Acute Hb trending down today with repeat measurements of hypotension Lowest recorded MAP 64 Concern for blood loss Primary team is transfusing 1 unit of blood (3) Hypotension Current Visit: Yes Status: Acute BP 72/60, MAP 64 Hold Losartan/HCTZ and Lasix Patient currently being transfused 1u RBCs Qualifiers: Hypotension type: other hypotension type Qualified Code(s): I95.89 - Other hypotension Discussion w patient/family: The assessment and plan as outlined above was discussed with the patient and/or family members who expressed understanding and agreement. All questions were answered. Thank you for involving us in the care of your patient. Please call with any questions. History of Present Illness Consult date: 05/27/16 Requesting physician: Margaux Trujillo Consult reason: Clearance for surgery Chief complaint: Right hip fracture History of present illness: Ms. Monique is a 80 year old female who presented to [facility] due to Right hip fracture following fall at home. Patient was paying bills at the kitchen table. When she tried to stand from seated position, patient slid to the floor. She was in intense pain to right hip, according to her who tried to assist her. Patient states that she did not faint or black out. She denies hitting her head. She did not feel dizzy at time of incident. Patient states that she felt as though her leg had gone to sleep. Patient denies chest pain or dyspnea at this time. She denies having prior history of CAD. Denies DC, previous stress, previous stress. Admits to history of smoking. Admits to history of HTN. Past Med Surg Social Fam HX - Past Medical History Medical history: CHF, hyperlipidemia, hypertension, other (remote cerebral aneurysm s/p repair) Psychiatric history: no psych history - Past Surgical History Surgical History: cholecystectomy, vascular surgery (cerebral aneurysm repair) - Social History Smoking Status: Never smoker Smokeless Tobacco Status: No Alcohol use: none Drug use: none - Family History Mother Living Status: Age at : 44 Cause of : cerebral hemorrhage Sister Age at : 45 Cause of : cerebal hemmorge Brother Living Status: Cause of : Cancer Son Living Status: Age at : 51 Cause of : cerebal hemmorhage Medications and Allergies Aspirin 81 mg PO DAILY 05/27/16 [History] Famotidine [Pepcid] 20 mg PO BID 05/27/16 [History] Furosemide [Lasix] 20 mg PO DAILY 05/27/16 [History] Loperamide HCl [Anti-Diarrheal] 2 mg PO DAILY PRN 05/27/16 [History] Losartan/Hydrochlorothiazide [Hyzaar 100-25 Tablet] 1 each PO DAILY 05/27/16 [ History] Mv-Mn/FA/Vit K/Lycop/Lut/Coq10 [Daily Multivitamin Capsule] 1 tab PO DAILY 05/27 [History] Potassium Chloride [Klor-Con Sprinkle] 10 meq PO DAILY 05/27/16 [History] Allergies No Known Allergies Allergy (Verified 05/27/16 12:29) All Systems Review: A 10-system review of systems was performed and is negative for pertinent findings except as documented above in the HPI. Physical Examination Vital Signs, Last 4 Hours Temp Pulse Resp BP Pulse Ox 05/28/16 10:05 98.2 F 85 18 74/62 98 05/28/16 09:50 98.1 F 89 16 72/60 99 General: Conversant, No Apparent Distress HEENT: Atraumatic, Normocephaly, Mucus Membranes Moist Neck: No JVD, Normal carotid pulses, Other (Left carotid bruit. Unable to appreciate bruit to right carotid due to poor patient compliance with exam) Cardiac: Normal S1 and S2, Other (Irregular rhythm (frequent PACs on EKG noted) , systolic murmur to right sternal border, systolic murmur to left lower sternal border) Lungs: Normal Breath Sounds, No Wheeze, Rales, Rhonchi Neuro: Alert and responsive, No focal deficits noted Abdomen: Soft, Non-Tender Skin: Other (Large ecchymosis to right back) Extremities: No Clubbing, No Cyanosis, Normal Pulses, Other (1+ pitting edema to right leg) Results 05/28/16 05:10 05/28/16 05:10 Lab Results 05/28/16 05/28/16 05/28/16 05:10 05:10 05:10 WBC 6.7 Hgb 7.5 L D Hct 23.0 L Plt Count 146 Sodium 138 Potassium 4.5 Chloride 106 Carbon Dioxide 22 BUN 36 H Creatinine 1.54 H Glucose 87 Calcium 7.9 L Magnesium 2.0 Troponin I 0.00 - Imaging and Cardiology Chest Xray: report reviewed, image reviewed Echo: report reviewed - EKG Interpretation EKG results cardiology: personally reviewed, sinus rhythm (frequent PACs, HR 53) Consult Discharge Plan - Plan Referrals: Adriel Thomas Jr, MD [Primary Care Provider] - <Мария Gray - Last Filed: 05/28/16 13:58> Assessment and Plan Discussion w patient/family: The assessment and plan as outlined above was discussed with the patient and/or family members who expressed understanding and agreement. All questions were answered. Thank you for involving us in the care of your patient. Please call with any questions. History of Present Illness History of present illness: Ms. Monique is a 80 year old female All Systems Review: A 10-system review of systems was performed and is negative for pertinent findings except as documented above in the HPI. Physical Examination Vital Signs, Last 4 Hours Temp Pulse Resp BP Pulse Ox 05/28/16 10:05 98.2 F 85 18 74/62 98 05/28/16 09:50 98.1 F 89 16 72/60 99 Results 05/28/16 05:10 05/28/16 05:10 Lab Results 05/28/16 05/28/16 05/28/16 05:10 05:10 05:10 WBC 6.7 Hgb 7.5 L D Hct 23.0 L Plt Count 146 Sodium 138 Potassium 4.5 Chloride 106 Carbon Dioxide 22 BUN 36 H Creatinine 1.54 H Glucose 87 Calcium 7.9 L Magnesium 2.0 Troponin I 0.00 - Attending Attestation I examined this patient and my medical decision-making was reviewed with the CONFERENCE PLANNER/PA/Advanced Practice Nurse/Resident Physician. I agree with the documented findings, disposition and treatment plan. Ms. Monique had what appears to be a mechanical fall from her chair resulting in a right hip fracture. She denies loss of consciousness or frequent falls. She denies a history of CAD, CHF or DC. She also denies cardiac symptoms. She denies chest pain, worsening dyspnea or palpitations. Prior to her fall, she admits to fair functional capacity. She underwent an echo demonstrating normal LV and RV function with valvular abnormalities that are not severe and warrant no further attention at this time. Based upon these data, she is at acceptable cardiac risk. However, she is anemic with a drop in blood count to 7.5 and hypotensive suggesting bleeding. In this setting, there is a risk of cardiac ischemia which would increase her perioperative cardiovascular risk. Will defer to surgical team to decide on the urgency of surgery.
[2016-05-28] MEDS ORDERED: *HR* Propofol 200 MG/20 ML VIAL IVP ONE (14:29)
[2016-05-28] MEDS ORDERED: *HR* FentaNYL (PF) 100 MCG/2 ML VIAL ONE (14:29)
[2016-05-28] MEDS ORDERED: Azithromycin 500 MG in D5% in Water 250 ML IVPB SCH (15:00)
[2016-05-28] MEDS ORDERED: Lidocaine -MPF 2% 2 ML VIAL ONE (15:41)
[2016-05-28] MEDS ORDERED: Ondansetron 4 MG/2 ML VIAL ONE (16:36)
[2016-05-28] MEDS ORDERED: Dexamethasone 4 MG/ML VIAL ONE (16:36)
[2016-05-28] MEDS ORDERED: Ondansetron 4 MG/2 ML VIAL IVP PRN ×2 (17:36→20:40)
[2016-05-28] MEDS ORDERED: Naloxone 0.4 MG/ML INJ IVP PRN ×3 (17:36→20:40)
[2016-05-28] MEDS ORDERED: *HR* Morphine 2 MG/ML SYRINGE IVP PRN ×2 (17:36→20:40)
--- NOTE | 2016-05-28 19:08 | Anesthesia Evaluation Post Op ---
Date of Encounter: 05/28/16 Time of Encounter: 19:07 - Vital Signs Vital Signs: Vital Signs/O2 Sat, Most Current Temp Pulse Resp BP Pulse Ox 98.2 F 91 18 107/58 99 05/28/16 18:35 05/28/16 18:45 05/28/16 18:45 05/28/16 18:45 05/28/16 18:45 - Lungs Lungs: Clear Ascult./Percussion - Airway Airway: Non-obstructed - Cardiovascular Regular Rate - Mental Status Mental Status: Alert & Oriented, Answers Appropriately - Pain Pain Scale: 0 Pain Scale used: Numeric (1 - 10) - Nausea Vomiting Nausea Vomiting: Not Present - Hydration Hydration: NPO, Has not voided - Discharge PostOp Status: Transfer Patient to floor
[2016-05-28 20:22] LABS: Hematocrit 30.7 % (35.3-44.9)
[2016-05-28 20:24] LABS: Hemoglobin 10.2 g/dL (11.5-15.4)
[2016-05-28] MEDS ORDERED: 0.9 % Sodium Chloride 500 ML IVC ONE (20:40)
[2016-05-28] MEDS ORDERED: *HR* HYDROcodone/Acet 5/325 mg TABLET PO PRN (20:40)
[2016-05-28] MEDS ORDERED: Sennosides 8.6 MG TABLET PO PRN (20:40)
[2016-05-28] MEDS ORDERED: Ringers Solution, Lactated 1,000 ML IVC SCH (20:40)
[2016-05-28 21:17] LABS: Hematocrit 27.5 % (35.3-44.9)
[2016-05-29 05:55] LABS: Basophils % 0.2 %; Eosinophils % 0.1 %; Hematocrit 23.9 % (35.3-44.9); Hemoglobin 7.9 g/dL (11.5-15.4); Immature Granulocytes % 0.4 % (0-4); Lymphocytes # 0.8 K/mcL (0.6-4.6); Lymphocytes % 9.3 %; Mean Corpuscular HGB Conc 33.1 g/dL (31.6-35.5); Mean Corpuscular Hemoglobin 33.1 pg (28.0-33.3); Mean Platelet Volume 12.6 fL (9.4-12.4); Monocytes # 1.2 K/mcL (0.0-1.3); Monocytes % 14.3 %; Neutrophils # 6.4 K/mcL (1.6-8.9); Nucleated Red Blood Cells 0.2 /100 WBC (0); Platelet Count 131 K/mcL (140-400); Red Blood Count 2.39 M/mcL (3.82-4.97); Red Cell Distribution Width 20.9 % (11.5-14.5); Segmented Neutrophils % 75.7 %
[2016-05-29 06:03] LABS: Calcium 7.7 mg/dL (8.6-10.8); Potassium 4.8 mEq/L (3.5-4.5)
--- NOTE | 2016-05-29 07:25 | Electrocardiograph Report ---
[address] [place] [address] Test Date: 2016-05-27 Pat Name: Mary Monique Department: 104 Room: [facility] Gender: F Diet Counselor: [facility] : 1935 Requested By: Valentin Camarena Order Number: [id number] Reading MD: Jono Kuhn MD Measurements Intervals [place] Rate: 53 P: 91 PA: 183 QRS: 11 QRSD: 91 T: 19 QT: 439 QTc: 421 Interpretive Statements SINUS BRADYCARDIA WITH OCCASIONAL SUPRAVENTRICULAR PREMATURE COMPLEXES ANTERIOR MYOCARDIAL INFARCTION, OF INDETERMINATE AGE Electronically Signed On 05-29-2016 7:23:16 EDT by Jono Kuhn MD
[2016-05-29] MEDS: Cholecalciferol (D-3) 1,000 UNIT TABLET PO SCH (08:12)
--- NOTE | 2016-05-29 08:38 | Internal Med Progress Note ---
Date of Encounter: 05/29/16 Time of Encounter: 08:36 - Assessment and plan (1) Closed right hip fracture Current Visit: Yes Status: Acute Assessment and plan: Status post surgery with IM nailing. Being well postprocedure. Continue physical therapy. Pain control. On tramadol as needed. Moderate risk for complications. Qualifiers: Encounter type: initial encounter Qualified Code(s): S72.001A - Fracture of unspecified part of neck of right femur, initial encounter for closed fracture (2) Chronic kidney disease Current Visit: Yes Status: Chronic Assessment and plan: Renal function remains at baseline. Lasix on hold. Qualifiers: Chronic kidney disease stage: stage 3 (moderate) Qualified Code(s): N18.3 - Chronic kidney disease, stage 3 (moderate) (3) CAP (community acquired pneumonia) Current Visit: Yes Status: Acute Assessment and plan: Blood cultures remained negative. No fever. Leukocytosis resolved. (4) Acute blood loss anemia Current Visit: Yes Status: Acute Assessment and plan: Hemoglobin 7.9 today. Status post 2 units packed red blood cell transfusion yesterday before surgery. Will monitor blood counts. (5) Hypotension Current Visit: Yes Status: Resolved Assessment and plan: This has now resolved. Holding antihypertensives for now. Qualifiers: Hypotension type: other hypotension type Qualified Code(s): I95.89 - Other hypotension (6) Diastolic heart failure Current Visit: Yes Status: Chronic Assessment and plan: Supportive care. Lasix on hold for now. Cardiology has evaluated patient. Appreciate input. Qualifiers: Heart failure chronicity: chronic Qualified Code(s): I50.32 - Chronic diastolic (congestive) heart failure - Subjective Interval history: Patient feels better today. Pain is controlled in the right hip. She is working with physical therapy. Denies any chest pain. No shortness of breath. No other acute issues overnight. - Constitutional Vitals: Temp Pulse Resp BP Pulse Ox 98.1 F 78 14 107/52 100 05/29/16 07:02 05/29/16 07:02 05/29/16 07:02 05/29/16 07:02 05/29/16 07:02 General appearance: Present: cooperative, mild distress, A&O X 3, pleasant, answers questions appropriately - Neck Neck exam general surgery: Present: supple, trachea midline. Absent: lymphadenopathy - Cardiovascular Cardiovascular exam: Present: RRR, +S1, +S2, systolic murmur. Absent: diastolic murmur, gallop, rubs - GI/Abdominal GI/Abdominal exam: Present: normal bowel sounds, soft, no peritoneal signs. Absent: distended, tenderness - Extremities Exam Extremities exam: Present: tenderness (Right hip region), warm, radial pulses palpable and symetrical. Absent: calf tenderness, cyanotic, pedal edema - Neurological Exam Neurological exam: Present: alert, oriented X3, no focal deficits. Absent: facial droop, speech deficit - Skin Skin exam: Present: dry, intact Internal Medicine: Result - Labs CBC & Chem 7: 05/29/16 04:56 05/29/16 04:56 Labs: Short CBC 05/28/16 05/28/16 05/29/16 Range/Units 19:02 21:03 04:56 WBC 8.4 (4.3-11.1) K/mcL Hgb 10.2 L D 9.0 L 7.9 L (11.5-15.4) g/dL Hct 30.7 L 27.5 L 23.9 L (35.3-44.9) % Plt Count 131 L (140-400) K/mcL Neutrophils # 6.4 (1.6-8.9) K/mcL BMP 05/29/16 04:56 Sodium 138 Potassium 4.8 H Chloride 109 Carbon Dioxide 24 BUN 35 H Creatinine 1.43 H Glucose 117 H Calcium 7.7 L - ABG Interpretation ABG results: PT/INR, D-dimer PT 11.9 Seconds (9.4-12.1) 05/27/16 10:21 - Impressions Impressions Fluoroscopy 05/28/16 15:34 IMPRESSION: Intraprocedural fluoroscopic spot images as above. See separate procedure report for more information. D/ / Gabby Melgar MD / Gabby Melgar MD Interpreting Provider: Gabby Melgar MD Consult Discharge Plan - Plan Referrals: Adriel Thomas Jr, MD [Primary Care Provider] - - Attending Attestation This document has been at least partially created by Dragon medical voice recognition technology by Dr. Cruz. Errors in grammar, wording or other phrases may exist. If errors are found after the documentation is signed, they will be addressed individually in the addendum section of this document when appropriate.
--- NOTE | 2016-05-29 09:09 | Electrocardiograph Report ---
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
[2016-05-29] MEDS: traMADol 50 MG TABLET PO PRN ×2 (10:54→16:26)
[2016-05-29 12:02] LABS: Hematocrit 22.6 % (35.3-44.9); Hemoglobin 7.3 g/dL (11.5-15.4)
[2016-05-29] MEDS ORDERED: Famotidine 20 MG TABLET PO SCH (12:30)
--- NOTE | 2016-05-29 13:08 | Orthopedics Progress Note ---
Date of Encounter: 05/29/16 Time of Encounter: 12:45 - Assessment and Plan (1) Closed right hip fracture Current Visit: Yes Status: Acute POD#1 - dressings to be changed tomorrow Continue in therapy. NWB Pain control per hospitalist. Plan to be DC to ECF once medically stable. Will follow up with Yesika Jensen PA-C in [facility] office on 06/12/16 at 9:45am. Appt card placed in DC folder. Qualifiers: Encounter type: initial encounter Qualified Code(s): S72.001A - Fracture of unspecified part of neck of right femur, initial encounter for closed fracture Subjective Principal diagnosis: POD#1 - S/P Right hip IM nailing Interval history: Patient doing well today. Patient had been sitting in chair for several hours this morning after therapy and was just transferred to bed so hip a little sore from that but overall her pain is much better than before surgery. Denies calf pain. No events overnight. Objective Vital signs: Vital Signs Temp Pulse Resp BP Pulse Ox 05/29/16 11:31 98.3 F 82 16 109/63 96 05/29/16 07:02 98.1 F 78 14 107/52 100 05/29/16 04:00 98.4 F 89 17 109/56 98 05/29/16 00:00 97.8 F 76 15 116/68 100 05/28/16 23:05 98.1 F 84 17 115/67 97 05/28/16 22:08 97.9 F 78 17 101/64 96 05/28/16 21:00 97.8 F 82 16 106/67 98 05/28/16 20:30 98.8 F 84 16 115/56 97 05/28/16 20:14 97 05/28/16 20:00 98.9 F 05/28/16 19:45 98.6 F 82 16 135/67 98 05/28/16 19:30 99.3 F 92 17 120/55 97 05/28/16 19:00 92 18 123/62 99 05/28/16 18:45 91 18 107/58 99 05/28/16 18:35 98.2 F 95 18 123/73 97 05/28/16 18:25 101 F H 89 18 100 05/28/16 18:15 96 20 94/64 98 05/28/16 18:05 97 20 99/67 99 05/28/16 17:55 99.8 F H 95 16 86/44 95 05/28/16 13:05 98.1 F 68 18 86/44 98 Intake and Output 05/28/16 05/29/16 05/29/16 23:59 07:59 15:59 Intake Total 300 / 300 100 / 100 Output Total 650 / 650 650 / 650 Balance -350 / -350 -550 / -550 Intake: Oral 300 / 300 100 / 100 Output: Urine 350 / 350 Urethral (Sparrow) 350 / 350 Estimated Blood Loss 300 / 300 Catheter 650 / 650 Incision: clean and dry (dressings c/d/i, no calf tenderness to palpation. good dorsiflexion of foot. NV intact) - Labs CBC & BMP: 05/29/16 11:57 05/29/16 04:56 Labs: Abnormal lab results RBC 2.39 M/mcL (3.82-4.97) L 05/29/16 04:56 Hgb 7.3 g/dL (11.5-15.4) L 05/29/16 11:57 Hct 22.6 % (35.3-44.9) L 05/29/16 11:57 RDW 20.9 % (11.5-14.5) H 05/29/16 04:56 Plt Count 131 K/mcL (140-400) L 05/29/16 04:56 MPV 12.6 fL (9.4-12.4) H 05/29/16 04:56 Nucleated RBCs/100 WBC 0.2 /100 WBC (0) H 05/29/16 04:56 Immature Plt Fraction 7.3 % (1.1-6.1) H 05/27/16 10:21 Potassium 4.8 mEq/L (3.5-4.5) H 05/29/16 04:56 BUN 35 mg/dL (7-20) H 05/29/16 04:56 Creatinine 1.43 mg/dL (0.57-1.11) H 05/29/16 04:56 Est GFR ( Amer) 43 (> 60) L 05/29/16 04:56 Est GFR (Non-Af Amer) 35 (> 60) L 05/29/16 04:56 Glucose 117 mg/dL (70-99) H 05/29/16 04:56 Calcium 7.7 mg/dL (8.6-10.8) L 05/29/16 04:56 B-Natriuretic Peptide 123 pg/mL (0-100) H 05/28/16 19:02 - VTE Documentation of Mechanical Device: Venous foot pump, device Consult Discharge Plan - Plan Referrals: Adriel Thomas Jr, MD [Primary Care Provider] -
--- NOTE | 2016-05-29 14:44 | Operative Note ---
Date of procedure: 05/28/16 Pre-op diagnosis: Right hip comminuted intertrochanteric fracture Post-op diagnosis: other (Right hip comminuted subtrochanteric fracture) Procedure: Right hip intramedullary nailing with cerclage Implants: Martine gamma nail Kinamed super cable Anesthesia: GETA Surgeon: Isai Cervantes Estimated blood loss (cc): 300 Specimen: 0 Condition: stable Disposition: PACU Procedure in Detail: The patient received IV antibiotics in the holding area. She was brought to the operating room, sign in was performed. The patient underwent general anesthesia on the hospital bed. She was then transferred to the fracture table in supine position. The patient was positioned with the support groin post, the affected right lower extremity in the traction roa and the contralateral lower extremity in a well-padded limb roa with a hip flexed and abducted out of the way. Fluoroscopy was then brought in, the fractures visualized, and the fracture reduced. It was seen that this was actually a subtrochanteric fracture. A long nail will be used. We checked on AP and true lateral view of the hip. The greater trochanter was grossly displaced, but appeared to be reducible with direct pressure over the lateral side. Once satisfactory the right hip, from the pelvis down to the knee, was prepped and draped in usual sterile fashion. A timeout was performed. The level of the greater trochanter was palpated, a 4-5 cm oblique incision was made just proximally, , followed by Bovie dissection. The patient had a very deep subcutaneous fat layer. The incision was extended 3 cm. The hip abductor was sharply split in line with its fibers with a curved Sorto scissors. The tip of the greater trochanter was palpable. A curved awl was then positioned on the tip. Its position was checked on fluoroscopy, slightly advanced, and we checked the lateral view. Once appropriately positioned, and using lateral pressure on the greater trochanter, the aggressive awl was then used to open the proximal femur down to level of the lesser trochanter. A guidewire was inserted down the awl, across the fracture site, and driven down to the distal femur. Then measured the length of the guidewire. I started reaming with a 9 mm reamer. Once reaming started however as the greater trochanter fragments displaced significantly. The fragment would reduce but then displaced with introduction of the reamer. I stopped with a 12.5 mm reamer with good chatter. A 320 mm long gamma nail with 125 degree neck angle, 11 mm diameter, was assembled, and appropriately inserted into the proximal femur. The appropriate level was checked under fluoroscopy. The trochars were placed in the jig at 125 degree neck angle was then positioned against the skin, and the radiolucent guide was used to assist in positioning. Once satisfactory a 2.5 cm incision was made, the fascia was bluntly split along with the muscle fibers of the vastus lateralis. The triple trocar was advanced up against the lateral cortex. The guidepin was then driven up into the femoral head, checking AP and lateral views. A 95 mm length lag screw was chosen. Overdrilled the guidewire, and the lag screw was inserted over the guidewire. The femoral head was very soft and the screws to penetrate the tip of the head. This was backed up. Once below the edge of the femoral head, the T-handled was held parallel to the nail. The setscrew was then positioned and fully tightened at the top, and locked in static position.. The distal targeting was attached to the jig. Fluoroscopy was appropriately set up and the targeting was adjusted. The triple trochars for the distal static locking screw were placed in the jig, a 1 cm longitudinal incision was made. The trochars were advanced to the cortex, and drilled across. The depth was measured and a 37.5 mm by 5 mm bicortical screw was placed. All trochars and jig were removed. Final fluoroscopy shots were taken and saved showing AP and lateral views of the hip and also distal femur, with overall good alignment. There is some displacement of the greater trochanter fragments. The proximal incision was extended distally 4 cm. The tensor fascia was split further and the vastus lateralis was elevated exposing the greater trochanter. A cerclage wire was placed around the fragments. We used the Kinamed super cable system. A large hook was carefully placed in the proximal femur and the greater trochanter fragments. The cables placed, tightened sterile technique and locking mechanism engaged. The super cables were cut. A final AP and hip was retaken The wounds were irrigated with normal saline. Fascia over the abductors and vastus lateralis was closed with 1 Vicryl [id number] stitches, including the deep subcutaneous fat layer. Subcutaneous tissues were closed with 2-0 Vicryl, and the skin incisions were closed with klaus. Sterile dressings were applied. The patient was transferred to hospital bed where she was extubated and taken to recovery room in stable condition. The patient will remain nonweightbearing to the right lower extremity.
[2016-05-29] MEDS ORDERED: Azithromycin 500 MG in D5% in Water 250 ML IVPB SCH (15:00)
[2016-05-29] MEDS: Azithromycin 250 MG TABLET PO SCH (16:27)
[2016-05-29] MEDS ORDERED: 0.9 % Sodium Chloride 250 ML ONE (17:32)
[2016-05-29] MEDS ORDERED: *HR* Enoxaparin 30 MG/0.3 ML SYRINGE SQ SCH (18:00)
[2016-05-29] MEDS ORDERED: Mag Hydrox/Al Hydrox/Simeth 30 ML UDC PO PRN (19:22)
[2016-05-29] MEDS ORDERED: *HR* Metoprolol 5 MG/5 ML VIAL IVP PRN (22:34)
[2016-05-29] MEDS ORDERED: Chloraseptic Spray 177 ML BOTTLE MM PRN (22:37)
[2016-05-29 23:23] LABS: VBG HCO3 25.4 mEq/L (21-27); VBG PH 7.37 pH Units (7.32-7.42)
[2016-05-29 23:25] LABS: INR 1.2; Prothrombin Time 12.7 Seconds (9.4-12.1)
[2016-05-29 23:36] LABS: Albumin 2.9 g/dL (3.5-5.0); Calcium 8.1 mg/dL (8.6-10.8); Globulin 2.9 g/dL (2.4-3.5); Magnesium 2.2 mg/dL (1.6-2.6); Potassium 4.6 mEq/L (3.5-4.5); Total Protein 5.8 g/dL (6.0-8.3)
[2016-05-30 00:36] LABS: Thyroid Stimulating Hormone 0.887 mcIU/mL (0.350-4.840)
[2016-05-30 06:32] LABS: Basophils % 0.4 %; Eosinophils # 0.1 K/mcL (0.0-0.6); Eosinophils % 1.6 %; Hematocrit 24.8 % (35.3-44.9); Hemoglobin 8.4 g/dL (11.5-15.4); Immature Granulocytes % 0.5 % (0-4); Lymphocytes # 0.9 K/mcL (0.6-4.6); Lymphocytes % 10.7 %; Mean Corpuscular HGB Conc 33.9 g/dL (31.6-35.5); Mean Corpuscular Hemoglobin 33.3 pg (28.0-33.3); Mean Corpuscular Volume 98.4 fL (83.0-100.0); Mean Platelet Volume 12.3 fL (9.4-12.4); Monocytes # 0.9 K/mcL (0.0-1.3); Monocytes % 11.6 %; Neutrophils # 6.1 K/mcL (1.6-8.9); Nucleated Red Blood Cells 0.2 /100 WBC (0); Platelet Count 105 K/mcL (140-400); Red Blood Count 2.52 M/mcL (3.82-4.97); Red Cell Distribution Width 18.6 % (11.5-14.5); Segmented Neutrophils % 75.2 %
[2016-05-30 06:48] LABS: Calcium 8.3 mg/dL (8.6-10.8); Potassium 4.9 mEq/L (3.5-4.5)
[2016-05-30] MEDS ORDERED: Famotidine 20 MG TABLET PO SCH (09:00)
[2016-05-30] MEDS ORDERED: Aspirin 81 MG TAB.CHEW PO SCH (09:00)
[2016-05-30] MEDS: Azithromycin 250 MG TABLET PO SCH (09:17)
[2016-05-30] MEDS: traMADol 50 MG TABLET PO PRN (09:17)
[2016-05-30] MEDS: Cholecalciferol (D-3) 1,000 UNIT TABLET PO SCH (09:17)
[2016-05-30 10:32] VITALS: BP 115/67
--- NOTE | 2016-05-30 12:11 | Discharge Summary ---
Date of Encounter: 05/29/16 Time of Encounter: 10:15 - Discharge Diagnosis (1) Closed right hip fracture Priority: Primary Status: Acute Qualifiers: Encounter type: initial encounter Qualified Code(s): S72.001A - Fracture of unspecified part of neck of right femur, initial encounter for closed fracture (2) Chronic kidney disease Priority: Secondary Status: Chronic Qualifiers: Chronic kidney disease stage: stage 3 (moderate) Qualified Code(s): N18.3 - Chronic kidney disease, stage 3 (moderate) (3) CAP (community acquired pneumonia) Priority: Secondary Status: Acute (4) Acute blood loss anemia Priority: Secondary Status: Acute (5) Hypotension Priority: Secondary Status: Resolved Qualifiers: Hypotension type: other hypotension type Qualified Code(s): I95.89 - Other hypotension (6) Diastolic heart failure Priority: Secondary Status: Chronic Qualifiers: Heart failure chronicity: chronic Qualified Code(s): I50.32 - Chronic diastolic (congestive) heart failure - Discharge Medications Prescriptions: Levofloxacin [Levaquin] 500 mg PO Q48H #6 tablet Tramadol HCl [Ultram] 50 mg PO QID PRN #14 tab PRN Reason: Pain Home Medications: Aspirin 81 mg PO DAILY 05/27/16 [History] Famotidine [Pepcid] 20 mg PO BID 05/27/16 [History] Furosemide [Lasix] 20 mg PO DAILY 05/27/16 [History] Loperamide HCl [Anti-Diarrheal] 2 mg PO DAILY PRN 05/27/16 [History] Mv-Mn/FA/Vit K/Lycop/Lut/Coq10 [Daily Multivitamin Capsule] 1 tab PO DAILY 05/27 [History] Carvedilol [Coreg] 6.25 mg PO BIDWM tablet 05/30/16 [Rx] Enoxaparin [Lovenox] 30 mg SQ Q24H #10 syringe 05/30/16 [Rx] Levofloxacin [Levaquin] 500 mg PO Q48H #6 tablet 05/30/16 [Rx] Tramadol HCl [Ultram] 50 mg PO QID PRN #14 tab 05/30/16 [Rx] Allergies/Adverse Reactions: Allergies No Known Allergies Allergy (Verified 05/27/16 12:29) Procedures/tests Complete & Pending: Procedures Performed prior 72 hours Category Date Time Status ECG 12 lead ECG [ECG] Routine Y 05/29/16 22:24 Completed EKG [ECG 12 lead ECG] [ECG] Stat Y 05/28/16 04:13 Completed Date of admission: 05/27/16 15:10 Primary care physician: Adriel Thomas Jr, MD Consults: 05/27/16 15:50 Consult to Community Program Assistant [CONS] Routine Reason for SW Consult: possible post op therapy 05/28/16 20:40 Consult to Occupational Therapy [CONS] Routine Comment: Evaluate, develop and implement POC Consult to Orthopedic Navigator [CONS] [CONS] Routine Consult to Physical Therapy [CONS] Routine Comment: Evaluate, develop and implement POC Consult to Community Program Assistant [CONS] Routine Reason for SW Consult: post -op hip fracture RT Post Op Consult [CONS] Routine Discharging clinician: Geetha Cruz Anticipated date of discharge: 05/30/16 - Patient Status Disposition: Transfer SNF Condition: Fair Overall status at discharge: patient is progressing back to baseline - Discharge Instructions Follow Up With: Yesika Jensen, PAC [Physician Silverware Etcher] - 06/12/16 9:45 am Additional Instructions: Take medications as prescribed. Go to scheduled follow-up appointment. Non- weight bearing, activity as tolerated. Diet as tolerated. Continue to use IS. - Diet and Activity Activity: as per physical therapy Diet: low salt diet, other (renal diet) Hospital course: Ms. Monique is a 80 year old female with a history of hyperlipidemia, hypertension, prior cerebral aneurysm status post repair, congestive heart failure was admitted she underwent right hip fracture that was comminuted and mildly displaced in the intertrochanteric region. She was evaluated by orthopedics and recommended surgery. Cardiology was consulted for cardiac clearance. They recommended holding antihypertensive medications and transfusing her packed red Blood cells for acute blood loss anemia. She was then taken for surgery and underwent right sided intramedullary nailing for her right hip fracture. She has since been recovering well. She did a further drop in her hemoglobin post surgery and received another unit of packed red blood cells. Her hemoglobin levels today are at 8.4. Her pain is well controlled. She was evaluated by physical therapy and recommended placement to skilled rehabilitation for recovery. She will be discharged today. Last night , there was concern of a change in rhythm of the patient and an EKG was done. This shows sinus rhythm although the machine incorrectly interpreted as atrial fibrillation despite the presence of P waves. Patient has been started on a low -dose beta krishna for her blood pressure which she will continue. For now we are stopping hydrochlorothiazide and lisinopril. She can follow up further with her primary care provider and cardiology as outpatient. She will also follow up with orthopedics for her hip fracture. - Time Spent with Patient Total time spent providing and/or coordinating discharge services: Greater than 30 minutes (40 min) - Constitutional Vitals: Temp Pulse Resp BP Pulse Ox 98.1 F 85 16 115/67 97 05/30/16 10:32 05/30/16 10:32 05/30/16 10:32 05/30/16 10:32 05/30/16 10:32 General appearance: Present: cooperative, mild distress, A&O X 3, pleasant, answers questions appropriately - Cardiovascular Cardiovascular exam: Present: RRR, +S1, +S2. Absent: diastolic murmur, gallop, rubs, systolic murmur - GI/Abdominal GI/Abdominal exam: Present: normal bowel sounds, soft, no peritoneal signs. Absent: distended, tenderness - Extremities Exam Extremities exam: Present: tenderness (right hip region), warm, radial pulses palpable and symetrical. Absent: calf tenderness, cyanotic, pedal edema - VTE Documentation of Mechanical Device: Venous foot pump, device - Attending Attestation This document has been at least partially created by [employer] recognition technology by Dr. Cruz. Errors in grammar, wording or other phrases may exist. If errors are found after the documentation is signed, they will be addressed individually in the addendum section of this document when appropriate.
--- NOTE | 2016-05-30 12:14 | Physician Discharge Referral ---
ExtendedCare Referral Info Provider in Charge after Transfer: PCP Institutional Level of Care: Skilled - Diagnosis (1) Closed right hip fracture Priority: Primary Status: Acute (2) Chronic kidney disease Priority: Secondary Status: Chronic (3) CAP (community acquired pneumonia) Priority: Secondary Status: Acute (4) Acute blood loss anemia Priority: Secondary Status: Acute (5) Hypotension Priority: Secondary Status: Resolved (6) Diastolic heart failure Priority: Secondary Status: Chronic Prognosis: Good Aware of Diagnosis: Patient, Family Aware of Prognosis: Patient, Family - Transfer Medications Prescriptions: Levofloxacin [Levaquin] 500 mg PO Q48H #6 tablet Tramadol HCl [Ultram] 50 mg PO QID PRN #14 tab PRN Reason: Pain Home Medications: Aspirin 81 mg PO DAILY 05/27/16 [History] Famotidine [Pepcid] 20 mg PO BID 05/27/16 [History] Furosemide [Lasix] 20 mg PO DAILY 05/27/16 [History] Loperamide HCl [Anti-Diarrheal] 2 mg PO DAILY PRN 05/27/16 [History] Mv-Mn/FA/Vit K/Lycop/Lut/Coq10 [Daily Multivitamin Capsule] 1 tab PO DAILY 05/27 [History] Carvedilol [Coreg] 6.25 mg PO BIDWM tablet 05/30/16 [Rx] Enoxaparin [Lovenox] 30 mg SQ Q24H #10 syringe 05/30/16 [Rx] Levofloxacin [Levaquin] 500 mg PO Q48H #6 tablet 05/30/16 [Rx] Tramadol HCl [Ultram] 50 mg PO QID PRN #14 tab 05/30/16 [Rx] Allergies/Adverse Reactions: Allergies No Known Allergies Allergy (Verified 05/27/16 12:29) - Respiratory Orders Smoking Cessation: Smoking cessation has been advised. For more information, call the [place] Tobacco Quit Line at 8-288-PSNY-NOW. - Advance Directives Code Status: Full Code - Mobility Orders Other (per PT evaluation) - Rehabiliation Orders Rehab Potential: Fair Rehab Orders: Evaluation for Physical Therapy, Evaluation for Occupational Therapy - Diet Orders Renal, Cardiac CERTIFICATION: I certify that the transfer of the above named patient to an Extended Care Facility is necessary for the continuing treatment of the diagnosis listed. The above information is true and accurate reflection of patient's current condition. Confidential - Redisclosure prohibited without a patient's written consent.
--- NOTE | 2016-05-30 19:54 | Electrocardiograph Report ---
[address] [place] [address] Test Date: 2016-05-29 Pat Name: Mary Monique Department: 114 Room: [facility] Gender: F Boiler Blower: [facility] : 1935 Requested By: Geetha Cruz Order Number: [id number] Reading MD: Gabino Ruiz MD Measurements Intervals Melvin Rate: 82 P: [place]: QRS: 26 QRSD: 76 T: 24 QT: 332 QTc: 370 Interpretive Statements SINUS RHYTHM WITH SUPRAVENTRICULAR PREMATURE COMPLEXES POSSIBLE RIGHT VENTRICULAR CONDUCTION DELAY ANTEROSEPTAL MYOCARDIAL INFARCTION, OF INDETERMINATE AGE Electronically Signed On 05-30-2016 19:52:19 EDT by Gabino Ruiz MD
== END 2016-05-30 14:37 | DRG 480 ==
LOC: EMEROO 09:55 → 3NENU 09:55 → SUATTDRO 15:10
PROVIDERS: ADMIT Nurse Practitioner Acute Care; ATTEND Internal Medicine

== ENCOUNTER 2017-09-26 16:33 | Inpatient (IN) ==
--- NOTE | 2017-09-26 17:09 | Emergency Department Note ---
Disposition Clinical Impression: Elevated troponin CHF exacerbation Qualifiers: Heart failure type: unspecified Qualified Code(s): I50.9 - Heart failure, unspecified Pneumonia Qualifiers: Pneumonia type: due to unspecified organism Laterality: bilateral Lung location : unspecified part of lung Qualified Code(s): J18.9 - Pneumonia, unspecified organism Anemia Qualifiers: Anemia type: unspecified type Qualified Code(s): D64.9 - Anemia, unspecified Disposition: Admitted As Inpatient Condition: Fair General Adult HPI - General Chief complaint: ED General Medical Stated complaint: sent by cardiology Time Seen by Provider: 09/26/17 16:40 Source: patient, family, EMS Limitations: no limitations - History of Present Illness Pain Scale: 0 - Related Data Home Medications Medication Instructions Recorded Confirmed Mv-Mn/FA/Vit K/Lycop/Lut/Coq10 1 tab PO DAILY 05/27/16 09/26/17 [Daily Multivitamin Capsule] Calcium Carbonate/Vitamin D3 1 each PO BID 06/26/16 09/26/17 [Calcium 500 + Vit D Caplet] Docusate [Colace] 100 mg PO BID PRN 06/26/16 09/26/17 Pantoprazole Sodium [Protonix] 40 mg PO DAILY 06/26/16 09/26/17 Ferrous Sulfate [Iron] 325 mg PO DAILY 02/11/17 09/26/17 Fluticasone Propionate Nasal 1 spr NS DAILY 09/16/17 09/26/17 [Flonase] Previous Rx's Medication Instructions Recorded Aspirin 81 mg PO Q48H #0 09/07/17 Carvedilol 12.5 mg PO BID #60 tab 09/07/17 Furosemide [Lasix] 40 mg PO BIDDIURETIC tablet 10/03/17 Ipratropium/Albuterol Neb [Duoneb] 3 ml IH [id number] PRN inhsol 10/03/17 Ondansetron ODT [Zofran ODT] 4 mg SL Q8HR PRN tab.rapdis 10/03/17 Potassium Chloride 10 meq PO BIDWM tab.er.prt 10/03/17 levoFLOXacin [Levaquin] 500 mg PO Q48H tablet 10/03/17 Allergies Allergy/AdvReac Type Severity Reaction Status Date / Time No Known Allergies Allergy Verified 09/26/17 17:02 Past Medical History - Past Medical History Medical history: Reports: CHF, hyperlipidemia, hypertension, other Surgical history: Reports: cholecystectomy, hip replacement, vascular surgery Psychiatric history: Reports: no psych history [employer] history: Reports: non-contributory - Social History Smoking Status: Former smoker Smokeless Tobacco Status: Yes Alcohol use: Reports: none Drug use: Reports: none Physical Exam - General Limitations: no limitations General appearance: alert, in no apparent distress Course Vital Signs Temperature 98.1 F 09/26/17 16:34 Pulse Rate 78 09/26/17 16:34 Respiratory Rate 21 09/26/17 16:34 Blood Pressure 88/60 09/26/17 16:34 O2 Sat by Pulse Oximetry 100 09/26/17 16:34 Temperature 96.6 F L 10/03/17 16:28 Pulse Rate 86 10/03/17 16:28 Respiratory Rate 18 10/03/17 16:28 Blood Pressure 151/99 10/03/17 16:28 O2 Sat by Pulse Oximetry 97 10/03/17 16:28 Oxygen Delivery Oxygen Delivery Nasal Cannula Medical Decision Making - Lab Data Result diagrams: 10/03/17 03:24 10/03/17 03:24 Lab Results 09/26/17 09/26/17 09/26/17 Range/Units 16:54 16:54 16:54 WBC 6.4 (4.3-11.1) K/mcL RBC 1.90 L (3.82-4.97) M/mcL Hgb 7.1 L (11.5-15.4) g/dL Hct 22.5 L (35.3-44.9) % MCV 118.4 H (83.0-100.0) fL MCH 37.4 H (28.0-33.3) pg MCHC 31.6 (31.6-35.5) g/dL RDW 17.6 H (11.5-14.5) % Plt Count 123 L (140-400) K/mcL MPV 12.3 (9.4-12.4) fL Immature Gran % 0.3 (0-4) % Seg Neutrophils % 64.0 % Lymphocytes % 16.6 % Monocytes % 13.9 % Eosinophils % 5.0 % Basophils % 0.2 % Neutrophils # 4.1 (1.6-8.9) K/mcL Lymphocytes # 1.1 (0.6-4.6) K/mcL Monocytes # 0.9 (0.0-1.3) K/mcL Eosinophils # 0.3 (0.0-0.6) K/mcL Basophils # 0.0 (0.0-0.2) K/mcL Platelet Estimate Slight Decrease L (Normal) Anisocytosis 1+ A (Not Present) Macrocytosis Present A (Not Present) Sodium 142 (136-145) mEq/L Potassium 3.4 L (3.5-5.1) mEq/L Chloride 95 L (98-107) mEq/L Carbon Dioxide 42 H* (23-29) mEq/L BUN 56 H (8-23) mg/dL Creatinine 2.23 H (0.60-1.20) mg/dL Est GFR ( Amer) 26 L (> 60) Est GFR (Non-Af Amer) 21 L (> 60) BUN/Creatinine Ratio 25 (6-26) Glucose 96 (70-105) mg/dL POC Glucose (70-99) mg/dL Calculated Osmolality 309 H (280-300) Lactic Acid (0.5-2.2) mmol/L Calcium 9.1 (8.6-10.3) mg/dL Troponin I 0.07 H* (< 0.04) ng/mL B-Natriuretic Peptide 1205 H (Less than 100) pg/mL Urine Color (Yellow) Urine Clarity (Clear) Urine pH (5.0-8.0) pH Units Ur Specific [place] (1.010-1.025) Urine Protein (Neg-Trace) mg/dL Urine Glucose (UA) (Normal) mg/dL Urine Ketones (Negative) mg/dL Urine Blood (Negative) Urine Nitrite (Negative) Urine Bilirubin (Negative) Urine Urobilinogen (Normal) mg/dL Ur Leukocyte Esterase (Negative) Urine Microscopic RBC (0-3) per hpf Urine Microscopic WBC (0-3) per hpf Ur Squamous Epith Cells (None-Few) per lpf Urine Bacteria (None-Few) per hpf Hyaline Casts (None-Few) per lpf Ur Culture Indicated? (NO) Blood Type Antibody Screen Antibody Identification MTS Gel Crossmatch 09/26/17 09/26/17 09/27/17 Range/Units 16:54 17:12 00:05 WBC (4.3-11.1) K/mcL RBC (3.82-4.97) M/mcL Hgb (11.5-15.4) g/dL Hct (35.3-44.9) % MCV (83.0-100.0) fL MCH (28.0-33.3) pg MCHC (31.6-35.5) g/dL RDW (11.5-14.5) % Plt Count (140-400) K/mcL MPV (9.4-12.4) fL Immature Gran % (0-4) % Seg Neutrophils % % Lymphocytes % % Monocytes % % Eosinophils % % Basophils % % Neutrophils # (1.6-8.9) K/mcL Lymphocytes # (0.6-4.6) K/mcL Monocytes # (0.0-1.3) K/mcL Eosinophils # (0.0-0.6) K/mcL Basophils # (0.0-0.2) K/mcL Platelet Estimate (Normal) Anisocytosis (Not Present) Macrocytosis (Not Present) Sodium (136-145) mEq/L Potassium (3.5-5.1) mEq/L Chloride (98-107) mEq/L Carbon Dioxide (23-29) mEq/L BUN (8-23) mg/dL Creatinine (0.60-1.20) mg/dL Est GFR ( Amer) (> 60) Est GFR (Non-Af Amer) (> 60) BUN/Creatinine Ratio (6-26) Glucose (70-105) mg/dL POC Glucose (70-99) mg/dL Calculated Osmolality (280-300) Lactic Acid 0.9 (0.5-2.2) mmol/L Calcium (8.6-10.3) mg/dL Troponin I 0.07 H* (< 0.04) ng/mL B-Natriuretic Peptide (Less than 100) pg/mL Urine Color (Yellow) Urine Clarity (Clear) Urine pH (5.0-8.0) pH Units Ur Specific [place] (1.010-1.025) Urine Protein (Neg-Trace) mg/dL Urine Glucose (UA) (Normal) mg/dL Urine Ketones (Negative) mg/dL Urine Blood (Negative) Urine Nitrite (Negative) Urine Bilirubin (Negative) Urine Urobilinogen (Normal) mg/dL Ur Leukocyte Esterase (Negative) Urine Microscopic RBC (0-3) per hpf Urine Microscopic WBC (0-3) per hpf Ur Squamous Epith Cells (None-Few) per lpf Urine Bacteria (None-Few) per hpf Hyaline Casts (None-Few) per lpf Ur Culture Indicated? (NO) Blood Type O POSITIVE Antibody Screen POSITIVE A Antibody Identification Known Anti-Fya MTS Gel Crossmatch See Detail 09/27/17 09/27/17 09/27/17 Range/Units 00:05 00:05 05:44 WBC 5.9 (4.3-11.1) K/mcL RBC 1.90 L (3.82-4.97) M/mcL Hgb 6.8 L (11.5-15.4) g/dL Hct 22.3 L (35.3-44.9) % MCV 117.4 H (83.0-100.0) fL MCH 35.8 H (28.0-33.3) pg MCHC 30.5 L (31.6-35.5) g/dL RDW 17.7 H (11.5-14.5) % Plt Count 116 L (140-400) K/mcL MPV 12.1 (9.4-12.4) fL Immature Gran % (0-4) % Seg Neutrophils % % Lymphocytes % % Monocytes % % Eosinophils % % Basophils % % Neutrophils # (1.6-8.9) K/mcL Lymphocytes # (0.6-4.6) K/mcL Monocytes # (0.0-1.3) K/mcL Eosinophils # (0.0-0.6) K/mcL Basophils # (0.0-0.2) K/mcL Platelet Estimate (Normal) Anisocytosis (Not Present) Macrocytosis (Not Present) Sodium 143 (136-145) mEq/L Potassium 3.2 L (3.5-5.1) mEq/L Chloride 96 L (98-107) mEq/L Carbon Dioxide 39 H (23-29) mEq/L BUN 54 H (8-23) mg/dL Creatinine 2.12 H (0.60-1.20) mg/dL Est GFR ( Amer) 27 L (> 60) Est GFR (Non-Af Amer) 22 L (> 60) BUN/Creatinine Ratio 25 (6-26) Glucose 137 H (70-105) mg/dL POC Glucose 84 (70-99) mg/dL Calculated Osmolality 313 H (280-300) Lactic Acid (0.5-2.2) mmol/L Calcium 8.6 (8.6-10.3) mg/dL Troponin I (< 0.04) ng/mL B-Natriuretic Peptide (Less than 100) pg/mL Urine Color (Yellow) Urine Clarity (Clear) Urine pH (5.0-8.0) pH Units Ur Specific [place] (1.010-1.025) Urine Protein (Neg-Trace) mg/dL Urine Glucose (UA) (Normal) mg/dL Urine Ketones (Negative) mg/dL Urine Blood (Negative) Urine Nitrite (Negative) Urine Bilirubin (Negative) Urine Urobilinogen (Normal) mg/dL Ur Leukocyte Esterase (Negative) Urine Microscopic RBC (0-3) per hpf Urine Microscopic WBC (0-3) per hpf Ur Squamous Epith Cells (None-Few) per lpf Urine Bacteria (None-Few) per hpf Hyaline Casts (None-Few) per lpf Ur Culture Indicated? (NO) Blood Type Antibody Screen Antibody Identification MTS Gel Crossmatch 09/27/17 09/27/17 09/27/17 Range/Units 05:56 09:40 10:58 WBC 6.4 (4.3-11.1) K/mcL RBC 2.49 L (3.82-4.97) M/mcL Hgb 9.1 L D (11.5-15.4) g/dL Hct 28.3 L (35.3-44.9) % MCV 113.7 H (83.0-100.0) fL MCH 36.5 H (28.0-33.3) pg MCHC 32.2 (31.6-35.5) g/dL RDW 18.7 H (11.5-14.5) % Plt Count 122 L (140-400) K/mcL MPV 11.3 (9.4-12.4) fL Immature Gran % 0.3 (0-4) % Seg Neutrophils % 71.9 % Lymphocytes % 9.8 % Monocytes % 11.3 % Eosinophils % 6.4 % Basophils % 0.3 % Neutrophils # 4.6 (1.6-8.9) K/mcL Lymphocytes # 0.6 (0.6-4.6) K/mcL Monocytes # 0.7 (0.0-1.3) K/mcL Eosinophils # 0.4 (0.0-0.6) K/mcL Basophils # 0.0 (0.0-0.2) K/mcL Platelet Estimate Normal (Normal) Anisocytosis 1+ A (Not Present) Macrocytosis Present A (Not Present) Sodium (136-145) mEq/L Potassium (3.5-5.1) mEq/L Chloride (98-107) mEq/L Carbon Dioxide (23-29) mEq/L BUN (8-23) mg/dL Creatinine (0.60-1.20) mg/dL Est GFR ( Amer) (> 60) Est GFR (Non-Af Amer) (> 60) BUN/Creatinine Ratio (6-26) Glucose (70-105) mg/dL POC Glucose (70-99) mg/dL Calculated Osmolality (280-300) Lactic Acid (0.5-2.2) mmol/L Calcium (8.6-10.3) mg/dL Troponin I 0.06 H* (< 0.04) ng/mL B-Natriuretic Peptide (Less than 100) pg/mL Urine Color Yellow (Yellow) Urine Clarity Cloudy A (Clear) Urine pH 6.0 (5.0-8.0) pH Units Ur Specific [place] 1.015 (1.010-1.025) Urine Protein Negative (Neg-Trace) mg/dL Urine Glucose (UA) Normal (Normal) mg/dL Urine Ketones Negative (Negative) mg/dL Urine Blood Small H (Negative) Urine Nitrite Negative (Negative) Urine Bilirubin Negative (Negative) Urine Urobilinogen Normal (Normal) mg/dL Ur Leukocyte Esterase Large H (Negative) Urine Microscopic RBC 0-3 (0-3) per hpf Urine Microscopic WBC TNTC H (0-3) per hpf Ur Squamous Epith Cells None Seen (None-Few) per lpf Urine Bacteria None Seen (None-Few) per hpf Hyaline Casts None Seen (None-Few) per lpf Ur Culture Indicated? YES A (NO) Blood Type Antibody Screen Antibody Identification MTS Gel Crossmatch 09/27/17 Range/Units 10:58 WBC (4.3-11.1) K/mcL RBC (3.82-4.97) M/mcL Hgb (11.5-15.4) g/dL Hct (35.3-44.9) % MCV (83.0-100.0) fL MCH (28.0-33.3) pg MCHC (31.6-35.5) g/dL RDW (11.5-14.5) % Plt Count (140-400) K/mcL MPV (9.4-12.4) fL Immature Gran % (0-4) % Seg Neutrophils % % Lymphocytes % % Monocytes % % Eosinophils % % Basophils % % Neutrophils # (1.6-8.9) K/mcL Lymphocytes # (0.6-4.6) K/mcL Monocytes # (0.0-1.3) K/mcL Eosinophils # (0.0-0.6) K/mcL Basophils # (0.0-0.2) K/mcL Platelet Estimate (Normal) Anisocytosis (Not Present) Macrocytosis (Not Present) Sodium 143 (136-145) mEq/L Potassium 3.9 (3.5-5.1) mEq/L Chloride 98 (98-107) mEq/L Carbon Dioxide 41 H* (23-29) mEq/L BUN 51 H (8-23) mg/dL Creatinine 1.91 H (0.60-1.20) mg/dL Est GFR ( Amer) 31 L (> 60) Est GFR (Non-Af Amer) 25 L (> 60) BUN/Creatinine Ratio 27 H (6-26) Glucose 132 H (70-105) mg/dL POC Glucose (70-99) mg/dL Calculated Osmolality 312 H (280-300) Lactic Acid (0.5-2.2) mmol/L Calcium 9.0 (8.6-10.3) mg/dL Troponin I (< 0.04) ng/mL B-Natriuretic Peptide (Less than 100) pg/mL Urine Color (Yellow) Urine Clarity (Clear) Urine pH (5.0-8.0) pH Units Ur Specific [place] (1.010-1.025) Urine Protein (Neg-Trace) mg/dL Urine Glucose (UA) (Normal) mg/dL Urine Ketones (Negative) mg/dL Urine Blood (Negative) Urine Nitrite (Negative) Urine Bilirubin (Negative) Urine Urobilinogen (Normal) mg/dL Ur Leukocyte Esterase (Negative) Urine Microscopic RBC (0-3) per hpf Urine Microscopic WBC (0-3) per hpf Ur Squamous Epith Cells (None-Few) per lpf Urine Bacteria (None-Few) per hpf Hyaline Casts (None-Few) per lpf Ur Culture Indicated? (NO) Blood Type Antibody Screen Antibody Identification MTS Gel Crossmatch Attestation Statement - Attestation Attestation: I examined this patient and my medical decision-making was reviewed with the HEAD OF MARKETING ADOMETRY/PA/Advanced Practice Nurse/Resident Physician. I agree with the documented findings, disposition and treatment plan as described except to the extent set forth below. I did see the patient is spoke with her and her family and the patient does have some hypotension, anemia, she was sent by cardiology, she will be further evaluated and admitted. Test results are pending. I did review the EKG showing atrial fibrillation with a rate of 75 without acute ischemic change patient denies any chest pain, shortness of breath or dizziness. Recheck her blood pressure is minimally improved. Results are pending. [id number]
[2017-09-26 17:16] LABS: Basophils % 0.2 %; Eosinophils # 0.3 K/mcL (0.0-0.6); Hematocrit 22.5 % (35.3-44.9); Hemoglobin 7.1 g/dL (11.5-15.4); Immature Granulocytes % 0.3 % (0-4); Lymphocytes # 1.1 K/mcL (0.6-4.6); Lymphocytes % 16.6 %; Mean Corpuscular HGB Conc 31.6 g/dL (31.6-35.5); Mean Corpuscular Hemoglobin 37.4 pg (28.0-33.3); Mean Corpuscular Volume 118.4 fL (83.0-100.0); Mean Platelet Volume 12.3 fL (9.4-12.4); Monocytes # 0.9 K/mcL (0.0-1.3); Monocytes % 13.9 %; Neutrophils # 4.1 K/mcL (1.6-8.9); Platelet Count 123 K/mcL (140-400); Red Cell Distribution Width 17.6 % (11.5-14.5)
--- NOTE | 2017-09-26 17:27 | Emergency Department Note ---
Disposition Clinical Impression: Elevated troponin CHF exacerbation Qualifiers: Heart failure type: unspecified Qualified Code(s): I50.9 - Heart failure, unspecified Pneumonia Qualifiers: Pneumonia type: due to unspecified organism Laterality: right Lung location: lower lobe of lung Qualified Code(s): J18.1 - Lobar pneumonia, unspecified organism Anemia Qualifiers: Anemia type: unspecified type Qualified Code(s): D64.9 - Anemia, unspecified Disposition: Admitted As Inpatient Condition: Fair Referrals: Maya Dumont CNP [Primary Care Provider] - Forms: ED Satisfaction Letter, Work/School Release Time of Disposition: 18:52 General Adult HPI - General Chief complaint: ED General Medical Stated complaint: sent by cardiology Time Seen by Provider: 09/26/17 16:40 Source: patient, family, EMS Limitations: no limitations Nursing Notes Reviewed: Yes Vital Signs Reviewed: Yes - History of Present Illness HPI Narrative: Patient is an 81-year-old female with past medical history of CHF. She has has a history of anemia and takes iron chronically. She was seen by cardiology today for scheduled follow-up. I got a call from cardiology by nurse practitioner Vinay who states that the patient has had increased pitting edema of the lower extremities, BNP of 1200 and outside fdc, concern for CHF exacerbation, increased oxygen requirement. The patient herself denies any chest discomfort but does confirm increased pedal edema, mild shortness of breath above baseline. She is currently on 2 L nasal cannula oxygen and is satting in the upper 90s. This is her home dosing of oxygen. Denies any other fevers, nausea, vomiting, diarrhea, comes patient, blood in stool, dysuria, hematuria. Patient currently takes Bumex at home for CHF but is unsure of dosing. Pain Scale: 0 - Related Data Home Medications Medication Instructions Recorded Confirmed Mv-Mn/FA/Vit K/Lycop/Lut/Coq10 1 tab PO DAILY 05/27/16 09/16/17 [Daily Multivitamin Capsule] Calcium Carbonate/Vitamin D3 1 each PO BID 06/26/16 09/16/17 [Calcium 500 + Vit D Caplet] Docusate [Colace] 100 mg PO BID PRN 06/26/16 09/16/17 Mirtazapine 7.5 mg PO HS 06/26/16 09/16/17 Pantoprazole Sodium [Protonix] 40 mg PO DAILY 06/26/16 09/16/17 Ferrous Sulfate [Iron] 325 mg PO DAILY 02/11/17 09/16/17 Fluticasone Propionate Nasal 1 spr NS DAILY 09/16/17 09/16/17 [Flonase] Previous Rx's Medication Instructions Recorded Aspirin 81 mg PO Q48H #0 09/07/17 Carvedilol 12.5 mg PO BID #60 tab 09/07/17 Furosemide [Lasix] 40 mg PO DAILY 30 Days #30 tablet 09/22/17 Allergies Allergy/AdvReac Type Severity Reaction Status Date / Time No Known Allergies Allergy Verified 09/26/17 17:02 All systems ED: reviewed and negative except as stated. Constitutional: Denies: fever Cardiovascular: Denies: chest pain Respiratory: Reports: dyspnea Gastrointestinal: Denies: abdominal pain, nausea, vomiting, diarrhea Genitourinary: Denies: urgency Musculoskeletal: Denies: back pain Endocrine: Reports: fatigue Past Medical History - Past Medical History Attestation: Yes The following information was validated with the patient. Source: patient Medical history: Reports: CHF, hyperlipidemia, hypertension, other Surgical history: Reports: cholecystectomy, hip replacement, vascular surgery Psychiatric history: Reports: no psych history OCCUP THERAPIST history: Reports: non-contributory - Social History Smoking Status: Former smoker Smokeless Tobacco Status: Yes Alcohol use: Reports: none Drug use: Reports: none Physical Exam - General Limitations: no limitations General appearance: alert, in no apparent distress - Head Head exam: atraumatic, normocephalic, normal inspection - Eye Eye exam: Present: normal appearance, PERRL, EOMI - ENT ENT exam: normal exam, normal oropharynx, mucous membranes moist - Neck Neck exam: Present: normal inspection, full ROM, trachea midline - Chest Chest inspection: Present: normal inspection, symmetric chest wall rise - Respiratory Respiratory exam: Present: other (Decreased lung sounds in the right lower lobe , mild crackles bilateral lower lobes) - Cardiovascular Cardiovascular exam: Present: regular rate, normal rhythm, normal heart sounds - Abdominal Exam Abdominal exam: Present: soft, Non-Tender. Absent: tenderness, distention, guarding, rebound, rigidity - Extremities Exam Extremities exam: Present: full ROM, pedal edema (Pitting edema of the bilateral lower extremity up to knees, moderate). Absent: tenderness - Neurological Exam Neurological exam: Present: alert, oriented X3 - Psychiatric Psychiatric exam: Present: normal affect, normal mood - Skin Skin exam: Present: warm, dry, intact, normal color Course Course Narrative: No signs of respiratory distress, no need for BIPAP at this time. Patient was hypertensive in the 80s systolic on presentation. However, she is mentating well. No focal neurologic deficits. Unable to give fluids at this time due to CHF exacerbation. Chest x-ray shows pulmonary edema with also infiltrated and concern for right lower lobe pneumonia. Could not diurese at this time due to low blood pressure. EKG showed normal sinus rhythm with no acute ST elevation. Basic blood work shows troponin of 0.07, likely elevated secondary to CHF exacerbation. No current chest discomfort. CBC shows anemia at 7.1. Decided to transfuse 1 unit slowly over 4 hours which would help with anemia and hypo- tension. I talked with hospitalist, she is accepted for admission. Dr. Gardner has requested ABG, addition of Levaquin to vancomycin and Zosyn that has artery been started for pneumonia due to patient being in long term facility. These have been added on . Vital Signs Temperature 98.1 F 09/26/17 16:34 Pulse Rate 78 09/26/17 16:34 Respiratory Rate 21 09/26/17 16:34 Blood Pressure 88/60 09/26/17 16:34 O2 Sat by Pulse Oximetry 100 09/26/17 16:34 Temperature 98.1 F 09/26/17 16:34 Pulse Rate 82 09/26/17 18:07 Respiratory Rate 20 09/26/17 18:07 Blood Pressure 81/52 09/26/17 18:07 O2 Sat by Pulse Oximetry 100 09/26/17 18:07 Oxygen Delivery Oxygen Delivery Nasal Cannula Medical Decision Making - [facility] Narrative Medical decision making narrative: No signs of respiratory distress, no need for BIPAP at this time. Patient was hypertensive in the 80s systolic on presentation. However, she is mentating well. No focal neurologic deficits. Unable to give fluids at this time due to CHF exacerbation. Chest x-ray shows pulmonary edema with also infiltrated and concern for right lower lobe pneumonia. Could not diurese at this time due to low blood pressure. EKG showed normal sinus rhythm with no acute ST elevation. Basic blood work shows troponin of 0.07, likely elevated secondary to CHF exacerbation. No current chest discomfort. CBC shows anemia at 7.1. Decided to transfuse 1 unit slowly over 4 hours which would help with anemia and hypo- tension. I talked with hospitalist, she is accepted for admission. Dr. Gardner has requested ABG, addition of Levaquin to vancomycin and Zosyn that has artery been started for pneumonia due to patient being in long term facility. These have been added on . - Medical Records Medical records reviewed: Yes I reviewed the patient's medical records. - Lab Data Lab results reviewed: Yes I reviewed the patient's lab results. Result diagrams: 09/26/17 16:54 09/26/17 16:54 Lab Results 09/26/17 09/26/17 09/26/17 Range/Units 16:54 16:54 16:54 WBC 6.4 (4.3-11.1) K/mcL RBC 1.90 L (3.82-4.97) M/mcL Hgb 7.1 L (11.5-15.4) g/dL Hct 22.5 L (35.3-44.9) % MCV 118.4 H (83.0-100.0) fL MCH 37.4 H (28.0-33.3) pg MCHC 31.6 (31.6-35.5) g/dL RDW 17.6 H (11.5-14.5) % Plt Count 123 L (140-400) K/mcL MPV 12.3 (9.4-12.4) fL Immature Gran % 0.3 (0-4) % Seg Neutrophils % 64.0 % Lymphocytes % 16.6 % Monocytes % 13.9 % Eosinophils % 5.0 % Basophils % 0.2 % Neutrophils # 4.1 (1.6-8.9) K/mcL Lymphocytes # 1.1 (0.6-4.6) K/mcL Monocytes # 0.9 (0.0-1.3) K/mcL Eosinophils # 0.3 (0.0-0.6) K/mcL Basophils # 0.0 (0.0-0.2) K/mcL Platelet Estimate Slight Decrease L (Normal) Anisocytosis 1+ A (Not Present) Macrocytosis Present A (Not Present) Sodium 142 (136-145) mEq/L Potassium 3.4 L (3.5-5.1) mEq/L Chloride 95 L (98-107) mEq/L Carbon Dioxide 42 H* (23-29) mEq/L BUN 56 H (8-23) mg/dL Creatinine 2.23 H (0.60-1.20) mg/dL Est GFR ( Amer) 26 L (> 60) Est GFR (Non-Af Amer) 21 L (> 60) BUN/Creatinine Ratio 25 (6-26) Glucose 96 (70-105) mg/dL Calculated Osmolality 309 H (280-300) Lactic Acid (0.5-2.2) mmol/L Calcium 9.1 (8.6-10.3) mg/dL Troponin I 0.07 H* (< 0.04) ng/mL B-Natriuretic Peptide 1205 H (Less than 100) pg/mL Blood Type Antibody Screen Antibody Identification MTS Gel Crossmatch 09/26/17 09/26/17 Range/Units 16:54 17:12 WBC (4.3-11.1) K/mcL RBC (3.82-4.97) M/mcL Hgb (11.5-15.4) g/dL Hct (35.3-44.9) % MCV (83.0-100.0) fL MCH (28.0-33.3) pg MCHC (31.6-35.5) g/dL RDW (11.5-14.5) % Plt Count (140-400) K/mcL MPV (9.4-12.4) fL Immature Gran % (0-4) % Seg Neutrophils % % Lymphocytes % % Monocytes % % Eosinophils % % Basophils % % Neutrophils # (1.6-8.9) K/mcL Lymphocytes # (0.6-4.6) K/mcL Monocytes # (0.0-1.3) K/mcL Eosinophils # (0.0-0.6) K/mcL Basophils # (0.0-0.2) K/mcL Platelet Estimate (Normal) Anisocytosis (Not Present) Macrocytosis (Not Present) Sodium (136-145) mEq/L Potassium (3.5-5.1) mEq/L Chloride (98-107) mEq/L Carbon Dioxide (23-29) mEq/L BUN (8-23) mg/dL Creatinine (0.60-1.20) mg/dL Est GFR ( Amer) (> 60) Est GFR (Non-Af Amer) (> 60) BUN/Creatinine Ratio (6-26) Glucose (70-105) mg/dL Calculated Osmolality (280-300) Lactic Acid 0.9 (0.5-2.2) mmol/L Calcium (8.6-10.3) mg/dL Troponin I (< 0.04) ng/mL B-Natriuretic Peptide (Less than 100) pg/mL Blood Type O POSITIVE Antibody Screen POSITIVE A Antibody Identification Known Anti-Fya MTS Gel Crossmatch See Detail - Radiology Data Radiology results reviewed: Yes I reviewed the patient's radiology results. Chest X-Ray 09/26/17 16:49 IMPRESSION: Re-demonstration of bilateral infiltrates worse on the right as well as right effusion. D/ / 09/26/2017 17:29:41 Ora Kerr MD / Jane Wright Interpreting Provider: Ora eKrr MD - EKG Data EKG #1 EKG attestation: Yes I reviewed and interpreted this EKG. EKG results narrative: 09/26/2017 at 16:37. A. fib. Rate 75. QRS 94. QTC 385. Normal axis. T- wave inversion in V1, V2. No acute ST elevation. S.B.A.R. - S.B.A.R. Situation: Demographics, MOA Background: Presenting Complaint, Relevant PMH, Meds, & Allergies Assessment: Vital Signs, Course and respsone to treatment, Exam Concerns, Patient/Family Expectation, Pertinant Lab Results, Outstanding Labs Recommendation: Barrier(s) to disposition, Recommendation based on pending studies, treatments, or consults S.B.A.R. Report Given to: Dr. Gardner
[2017-09-26 17:29] LABS: Anisocytosis 1+ (Not Present); Macrocytosis Present (Not Present); Platelet Estimate Slight Decrease (Normal)
[2017-09-26] MEDS ORDERED: Piperacillin/Tazobactam 3.375 GM in 0.9 % Sodium Chloride Mini Bag 100 ML IVPB ONE (17:37)
[2017-09-26 17:45] LABS: Calcium 9.1 mg/dL (8.6-10.3); Potassium 3.4 mEq/L (3.5-5.1); Troponin I 0.07 ng/mL (< 0.04)
[2017-09-26] MEDS ORDERED: Levofloxacin 750 MG/150 ML 750 MG/150 ML BAG IVPB ONE (18:37)
[2017-09-26] MEDS ORDERED: Naloxone 0.4 MG/ML INJ IVP PRN (23:43)
[2017-09-27 00:26] LABS: Hematocrit 22.3 % (35.3-44.9); Hemoglobin 6.8 g/dL (11.5-15.4); Mean Corpuscular HGB Conc 30.5 g/dL (31.6-35.5); Mean Corpuscular Hemoglobin 35.8 pg (28.0-33.3); Mean Corpuscular Volume 117.4 fL (83.0-100.0); Mean Platelet Volume 12.1 fL (9.4-12.4); Platelet Count 116 K/mcL (140-400); Red Cell Distribution Width 17.7 % (11.5-14.5)
--- NOTE | 2017-09-27 00:30 | Internal Med History&Physical ---
Date of Encounter: 09/27/17 Time of Encounter: 21:00 Internal Medicine - H&P: HPI Chief complaint: CHF exacerbation, anemia Admitted From: Home Plans for Post Hospital Care: Home History of present illness: Ms. Monique is a 81 year old female Patient last seen here at [place] and discharged on the 09/22. She had been treated for CHF exacerbation. She had done fairly well at the senior living, but gradually was requiring more oxygen at home. This morning she was seen in the cardiology office and was noted to have increased swelling and worsening oxygenation. She was then sent over to the ER for further work up and management. She currently denies fever, nausea, vomiting, diarrhea, chest pain and abdominal pain. In the emergency room she was found to have elevated troponin 0.07, BNP of 1205 and a hemoglobin of 7.1. Chest x-ray showed infiltrates primarily in the right chest that were previously demonstrated on the chest CT from her previous visit. It was consistent with pneumonia. One unit of PRBCs was ordered in the emergency room, but because of her unique antibody composition, the unit of blood has been delayed as it has to come from outside facility. Patient denies signs of bleeding. She does have a known history of anemia, with her baseline hemoglobin being around 9. She was admitted to the hospital for further management of her anemia, CHF exacerbation , and pneumonia. Past Med Surg Social Fam HX - Past Medical History Medical history: CHF, hyperlipidemia, hypertension, other Additional medical history: former smoker Psychiatric history: no psych history - Past Surgical History Surgical History: cholecystectomy, hip replacement, vascular surgery Additional surgical history: right 3 times - Social History Smoking Status: Former smoker Smokeless Tobacco Status: Yes Alcohol use: none Drug use: none - Family History Mother Living Status: Brother Living Status: Son Living Status: Internal Medicine - H&P: Meds Mv-Mn/FA/Vit K/Lycop/Lut/Coq10 [Daily Multivitamin Capsule] 1 tab PO DAILY 05/27 [History] Calcium Carbonate/Vitamin D3 [Calcium 500 + Vit D Caplet] 1 each PO BID [History] Docusate [Colace] 100 mg PO BID PRN 06/26/16 [History] Mirtazapine 7.5 mg PO HS 06/26/16 [History] Pantoprazole Sodium [Protonix] 40 mg PO DAILY 06/26/16 [History] Ferrous Sulfate [Iron] 325 mg PO DAILY 02/11/17 [History] Aspirin 81 mg PO Q48H #0 09/07/17 [Rx] Carvedilol 12.5 mg PO BID #60 tab 09/07/17 [Rx] Fluticasone Propionate Nasal [Flonase] 1 spr NS DAILY 09/16/17 [History] Furosemide [Lasix] 40 mg PO DAILY 30 Days #30 tablet 09/22/17 [Rx] 3 Allergy/AdvReac Type Severity Reaction Status Date / Time No Known Allergies Allergy Verified 09/26/17 17:02 All Systems PM: A 10-system review of systems was performed and is negative for pertinent findings except as documented above in the HPI. - Constitutional Vitals: Temp Pulse Resp BP Pulse Ox 98.0 F 73 17 145/64 100 09/26/17 23:59 09/26/17 23:59 09/26/17 23:59 09/26/17 23:59 09/26/17 23:59 General appearance: Present: cooperative, A&O X 3, pleasant, no acute distress, answers questions appropriately - Head Head exam: Present: normal inspection - Eye Eye exam: Present: EOMI, normal appearance - Respiratory Respiratory exam: Present: rales. Absent: chest wall tenderness, respiratory distress, wheezes - Cardiovascular Cardiovascular exam: Present: irregular rhythm, systolic murmur. Absent: diastolic murmur, RRR - GI/Abdominal GI/Abdominal exam: Present: normal bowel sounds, soft. Absent: tenderness - Extremities Exam Extremities exam: Present: pedal edema, warm, radial pulses palpable and symmetrical. Absent: calf tenderness, tenderness - Neurological Exam Neurological exam: Present: strengths equal and symetr throughout. Absent: facial droop, speech deficit - Skin Skin exam: Present: dry, normal color, warm Internal Med - H&P Results - Labs CBC & Chem 7: 09/27/17 00:05 09/27/17 00:05 - Assessment and plan (1) Acute on chronic diastolic CHF (congestive heart failure) Current Visit: No Status: Acute Assessment and plan: Patient last seen here at [facility] and discharged on the 09/22. Seen in the cardiology office this morning. Noted to have increased swelling and worsening oxygenation. Consultation during her previous visit by the cardiologists recommended Lasix IV 40 mg twice a day. Patient is supposed to take Bumex at home however at the time of last admission she admitted to missing some of her doses and not monitoring her fluid intake. She has been in a senior living after her last discharge from the hospital, but is possible she still taking in too much fluid. Lasix IV 40 mg twice a day Strict I's and O's Fluid restriction 1.5 L Daily weights. (2) Anemia Current Visit: Yes Status: Chronic Assessment and plan: Patient takes iron at home, MCV is 118.4. Her baseline hemoglobin appears to be around 9. In the emergency room she was 7.1. Could be related to chronic kidney disease. One unit of PRBCs was ordered in the emergency room. Her hypoxia and worsening respiratory status could be related to her anemia. Transfuse 1 unit PRBCs Continue to monitor hemoglobins Qualifiers: Anemia type: unspecified type Qualified Code(s): D64.9 - Anemia, unspecified (3) Healthcare-associated pneumonia Current Visit: Yes Status: Acute Assessment and plan: Chest x-ray shows redemonstrated bilateral infiltrates worse on the right, which is consistent with pneumonia. Antibiotics were initiated in the emergency room, however blood cultures were not drawn prior to this. Continue vancomycin pharmacy to dose Continue Zosyn, renally dosed Continue levaquin, renally dosed. (4) Acute respiratory failure with hypoxia Current Visit: No Status: Resolved Assessment and plan: Likely multifactorial related to her anemia, worsening CHF exacerbation and pneumonia. Transfusing 1 unit PRBCs as above Treating CHF exacerbation as above Treating pneumonia as above Oxygen as needed Continue to monitor (5) COPD (chronic obstructive pulmonary disease) Current Visit: No Status: Inactive Assessment and plan: Currently not wheezing, however increased oxygen requirement. Likely related to CHF, pneumonia and anemia. Continue to monitor. Breathing treatments as needed. Will hold off on giving steroids due to her pneumonia. Qualifiers: COPD type: unspecified COPD Qualified Code(s): J44.9 - Chronic obstructive pulmonary disease, unspecified (6) Valvular disease Current Visit: No Status: Acute Assessment and plan: As per patient's last echocardiogram: moderate severe mitral annular calcification and subvalvular calcification Mild to moderate mitral regurgitation Mild to moderate mitral stenosis Mild aortic regurgitation Moderate aortic stenosis Moderate tricuspid regurgitation Mild to moderate pulmonic regurgitation Severe pulmonary hypertension Continue to monitor. (7) New onset a-fib Current Visit: Yes Status: Acute Assessment and plan: Patient's EKG from the ER showed that she had atrial fibrillation, and a review of her previous visits and cardiology consultations do not mention this in her history. Unclear exactly how long this may have been going on, EKG from previous visit was sinus rhythm with sinus arrhythmia. Rate is stable, currently 72. Avoiding anticogulation due to anemia and thrombocytopenia. Cardiology consultation front desk monitor. (8) Hiatal hernia Current Visit: No Status: Inactive Assessment and plan: Large hiatal hernia as seen on patient's most recent CT containing stomach, portion of colon and portion of pancreas. Likely contributing to her breathing issues due to mass effect. Continue to monitor. (9) CKD (chronic kidney disease) stage 3, GFR 30-59 ml/min Current Visit: No Status: Inactive Assessment and plan: Renally dosing meds Patient below her baseline GFR of around 30. Currently she is 21. Continue to monitor. (10) Elevated troponin Current Visit: Yes Status: Acute Assessment and plan: No chest pain, could be related to CHF. EKG showed no ST changes, but atrial fibrillation with a rate o 75. Trend troponins front desk monitor (11) Thrombocytopenia Current Visit: Yes Status: Acute Assessment and plan: Platelets low on initial lab work at 123. Patient was also low at the end of her hospitalization last visit. Continue to monitor. (12) DVT prophylaxis Current Visit: No Status: Resolved Assessment and plan: SCDs secondary to anemia and borderline low platelets. - Time Spent With Patient Total time spent is greater than 50% in coordination of care (as documented) at patient's floor/unit and/or counseling patient: Greater than 35 minutes
[2017-09-27 00:34] LABS: Calcium 8.6 mg/dL (8.6-10.3); Potassium 3.2 mEq/L (3.5-5.1)
[2017-09-27] MEDS ORDERED: 0.9 % Sodium Chloride 250 ML ONE (00:50)
[2017-09-27] MEDS ORDERED: Ipratropium/Albuterol Neb 3 ML IH PRN (01:16)
[2017-09-27] MEDS: Furosemide 40 MG/4 ML VIAL IVP SCH ×3 (02:52→17:17)
[2017-09-27] MEDS: Levofloxacin 750 MG/150 ML 750 MG/150 ML BAG IVPB SCH (02:52)
[2017-09-27] MEDS: Piperacillin/Tazobactam 3.375 GM in 0.9 % Sodium Chloride Mini Bag 100 ML IVPB SCH ×2 (06:16→17:17)
[2017-09-27] MEDS ORDERED: Potassium Chloride Elixir 20 MEQ/15 ML UDC PO ONE (08:09)
[2017-09-27] MEDS: Fluticasone Propionate Nasal 50 MCG/SPRAY BOTTLE NS SCH (08:46)
[2017-09-27 10:11] LABS: Bilirubin,Urine Negative (Negative); Blood,Urine Small (Negative); Clarity,Urine Cloudy (Clear); Color,Urine Yellow (Yellow); Glucose,Urine (UA) Normal (Normal); Ketones,Urine Negative (Negative); Leukocyte Esterase,Urine Large (Negative); Nitrite,Urine Negative (Negative); Protein,Urine Negative (Neg-Trace); Specific Gravity,Urine 1.015 (1.010-1.025); Urobilinogen,Urine Normal (Normal)
[2017-09-27 10:13] LABS: Bacteria,Urine None Seen per hpf (None-Few); Hyaline Casts,Urine None Seen per lpf (None-Few); RBC,Urine 0-3 per hpf (0-3); Squamous Epithelial Cell,Urine None Seen per lpf (None-Few); WBC,Urine TNTC per hpf (0-3)
[2017-09-27 11:08] LABS: Basophils % 0.3 %; Eosinophils # 0.4 K/mcL (0.0-0.6); Eosinophils % 6.4 %; Hematocrit 28.3 % (35.3-44.9); Immature Granulocytes % 0.3 % (0-4); Lymphocytes # 0.6 K/mcL (0.6-4.6); Lymphocytes % 9.8 %; Mean Corpuscular HGB Conc 32.2 g/dL (31.6-35.5); Mean Corpuscular Hemoglobin 36.5 pg (28.0-33.3); Mean Corpuscular Volume 113.7 fL (83.0-100.0); Mean Platelet Volume 11.3 fL (9.4-12.4); Monocytes # 0.7 K/mcL (0.0-1.3); Monocytes % 11.3 %; Neutrophils # 4.6 K/mcL (1.6-8.9); Platelet Count 122 K/mcL (140-400); Red Blood Count 2.49 M/mcL (3.82-4.97); Red Cell Distribution Width 18.7 % (11.5-14.5); Segmented Neutrophils % 71.9 %
[2017-09-27 11:09] LABS: Hemoglobin 9.1 g/dL (11.5-15.4)
[2017-09-27 11:15] LABS: Anisocytosis 1+ (Not Present); Macrocytosis Present (Not Present); Platelet Estimate Normal (Normal)
[2017-09-27 11:30] LABS: Potassium 3.9 mEq/L (3.5-5.1)
--- NOTE | 2017-09-27 12:05 | Cardiology Consult Note ---
Addendum entered and electronically signed by Mckenzie Ballesteros CNP 09/27/17 12: 25: Of note, upon further review, patient was also noted to have PNA per CXR. Continue ATB, mgmt per Primary service. Original Note: <Mckenzie Ballesteros - Last Filed: 09/27/17 12:05> Date of Encounter: 09/27/17 Time of Encounter: 10:30 Assessment and Plan (1) Congestive heart failure Current Visit: Yes Status: Acute Patient presents with worsening shortness of breath and increase in leg edema. Suspect multifactorial in etiology as patient also has VICKI on CKD and acute anemia requiring PRBC. Recent TTE shows preserved LVEF 60% with moderate valvular dysfunction--MR/MR/ and severe PH. Continue betablocker. Recommend TRICIA wraps to legs. Convert lasix to oral upon discharge. Recommend cautious diuresis given VICKI. Pt. reports edema has improved. Strict I&O's, daily weights and Na/fluid restricted diet. Qualifiers: Heart failure type: diastolic Heart failure chronicity: acute on chronic Qualified Code(s): I50.33 - Acute on chronic diastolic (congestive) heart failure (2) Valvular disease Current Visit: Yes Status: Acute Known history of valvular heart disease with preserved LVEF. Most recent TTE earlier this month demonstrated EF 60%, severe PH, moderate- severe MAC, mild-moderate MR, mild AR, moderate , moderate TR, mild-moderate [place]. Continue to monitor. Agree with cautious diuresis. Conservative medical therapy has been recommended. (3) Elevated troponin Current Visit: Yes Status: Acute Mild, adynamic troponin elevation in the setting of VICKI on CKD and acute blood loss anemia. Doubt ACS. No ischemic ECG changes noted. No chest pain reported. Continue conservative medical therapy. (4) Atrial fibrillation Current Visit: Yes Status: Acute Atrial fibrillation noted on admission ECG and telemetry. Rate is currently controlled. No prior documented hx in outpatient notes, however patient acknowledges history of Afib. Continue current medication regimen. Patient is not presently a candidate for AC due to acute blood loss anemia. Ideally recommend asa-81 mg daily if H/H stabilizes. Qualifiers: Atrial fibrillation type: unspecified Qualified Code(s): I48.91 - Unspecified atrial fibrillation (5) Acute blood loss anemia Current Visit: No Status: Acute s/p 1 unit of PRBC. Patient reports melena; however notes she is also on iron supplementation. Defer further mgmt to primary service. Discussion w patient/family: The assessment and plan as outlined above was discussed with the patient and/or family members who expressed understanding and agreement. All questions were answered. Thank you for involving us in the care of your patient. Please call with any questions. The patient will be discussed and reviewed with Dr. Gray; changes to be made accordingly. History of Present Illness Consult date: 09/27/17 Requesting physician: Pravin Flores Consult reason: CHF Chief complaint: Shortness of breath History of present illness: Ms. Monique is a 81 year old female with PMHx significant of diastolic CHF, anemia, valvular heart disease, HTN, and CKD who presented to the ED after recommendation BETH Cuevas with Cardiology due to worsening shortness of breath and lower extremity edema. Labs were drawn prior to outpatient visit and reflected VICKI and also acute anemia which also prompted ED evaluation. Patient resides at [facility] and states that she is weighed everyday however is unsure of her actual weight. Family reports the NH is not strict with fluid restricted diet. Reports dark stools, however also reports is on iron supplements. She denies chest pain discomfort or any other CV symptoms. Past Med Surg Social Fam HX - Past Medical History Attestation: Yes The following information was validated with the patient. Source: patient Medical history: CHF, hyperlipidemia, hypertension, renal disease, valvular heart disease Additional medical history: former smoker Psychiatric history: no psych history - Past Surgical History Surgical History: cholecystectomy, hip replacement, vascular surgery Additional surgical history: right 3 times - Social History Smoking Status: Former smoker Smokeless Tobacco Status: Yes Alcohol use: none Drug use: none - Family History Mother Living Status: Brother Living Status: Son Living Status: Medications and Allergies Mv-Mn/FA/Vit K/Lycop/Lut/Coq10 [Daily Multivitamin Capsule] 1 tab PO DAILY 05/27 [History] Calcium Carbonate/Vitamin D3 [Calcium 500 + Vit D Caplet] 1 each PO BID [History] Docusate [Colace] 100 mg PO BID PRN 06/26/16 [History] Mirtazapine 7.5 mg PO HS 06/26/16 [History] Pantoprazole Sodium [Protonix] 40 mg PO DAILY 06/26/16 [History] Ferrous Sulfate [Iron] 325 mg PO DAILY 02/11/17 [History] Aspirin 81 mg PO Q48H #0 09/07/17 [Rx] Carvedilol 12.5 mg PO BID #60 tab 09/07/17 [Rx] Fluticasone Propionate Nasal [Flonase] 1 spr NS DAILY 09/16/17 [History] Furosemide [Lasix] 40 mg PO DAILY 30 Days #30 tablet 09/22/17 [Rx] 3 Allergy/AdvReac Type Severity Reaction Status Date / Time No Known Allergies Allergy Verified 09/26/17 17:02 All Systems Review: The remainder of the systems were reviewed and are negative - Cardiovascular Cardiovascular: as per HPI Physical Examination General: Conversant HEENT: Atraumatic, Normocephaly Cardiac: Other (irregularly irregular 2-3/6 murmur present) Neuro: Alert and responsive Abdomen: Soft Skin: No rashes noted on visualized skin Musculoskeletal: No Chest Wall Tenderness Extremities: Other (+2-3 BLE edema to thighs) Results 09/27/17 10:58 09/27/17 10:58 Active Medications Albuterol/Ipratropium (Duoneb) 3 ml IH [id number] PRN PRN Reason: Shortness Of Breath/Wheezing Stop: 03/29/18 01:17 Ferrous Sulfate (Ferrous Sulfate) 325 mg PO DAILY AD Stop: 03/29/18 09:01 Last Admin: 09/27/17 08:45 Dose: 325 mg Fluticasone Propionate (Flonase) 50 mcg NS DAILY AD PRN Reason: Protocol Stop: 03/29/18 09:01 Last Admin: 09/27/17 08:46 Dose: Not Given Furosemide (Lasix) 40 mg IVP BIDDIURETIC AD Stop: 03/29/18 00:31 Last Admin: 09/27/17 08:45 Dose: 40 mg Levofloxacin/Dextrose (Levaquin Premix 750mg/150 Ml) 750 mg in 150 mls @ 100 mls/hr IVPB Q48H AD PRN Reason: Protocol Stop: 03/29/18 00:01 Last Infusion: 09/27/17 04:30 Dose: Infused Piperacillin Sod/Tazobactam (Sod 3.375 gm/ Sodium Chloride) 100 mls @ 25 mls/ hr IVPB Q12HR AD Stop: 03/29/18 06:01 Last Infusion: 09/27/17 10:20 Dose: Infused Mirtazapine (Remeron) 7.5 mg PO HS AD Stop: 03/29/18 21:01 Naloxone HCl (Narcan) 0.4 mg IVP Q2MIN PRN PRN Reason: SEE COMMENTS Stop: 03/28/18 23:44 Omeprazole (Prilosec) 40 mg PO DAILY@0630 AD PRN Reason: Protocol Stop: 03/30/18 06:31 Potassium Chloride (Potassium Chloride) 10 meq PO BIDWM AD Stop: 03/29/18 17:01 Vancomycin HCl (Vancocin) 0 each IVPB RPHPROT PRN PRN Reason: PULSE DOSE Stop: 03/29/18 00:03 - Imaging and Cardiology Echo: report reviewed Other Results: 12 hour tele: avg HR=81 afib. - EKG Interpretation EKG results cardiology: personally reviewed Consult Discharge Plan - Plan Referrals: Maya Dumont CNP [Primary Care Provider] - <Мария Gray - Last Filed: 09/27/17 13:23> Date of Encounter: 09/27/17 - Attending Attestation I examined this patient and my medical decision-making was reviewed with the [employer]. I agree with the documented findings, disposition and treatment plan as described. Ms. Monique is a pleasant 81 year old female presenting with worsening SOB and LE edema. Suspect symptoms are multifactorial and in part due to ARF on CKD, anemia requiring transfusion and an element of diastolic dysfunction in setting of known (per patient) rate controlled atrial fibrillation. Echo demonstrates preserved LV systolic function. Mild flat troponin elevation not diagnostic of ACS. No acute ECG findings. No chest pain. Consider low dose aspirin when blood counts normalize and bleeding has been ruled out. Recommend gentle diuresis in light of ARF and conversion to oral lasix when euvolemic. May benefit from TRICIA wraps to legs. Known multi-valvular heart disease being treated conservatively. Will sign off. Please call with questions. Assessment and Plan Discussion w patient/family: The assessment and plan as outlined above was discussed with the patient and/or family members who expressed understanding and agreement. All questions were answered. Thank you for involving us in the care of your patient. Please call with any questions. History of Present Illness History of present illness: Ms. Monique is a 81 year old female All Systems Review: The remainder of the systems were reviewed and are negative Physical Examination Vital Signs, Last 4 Hours Pulse 09/27/17 12:10 73 Results 09/27/17 10:58 09/27/17 10:58
[2017-09-27] MEDS ORDERED: Aminoglycoside Consult 1 EACH MC ONE (12:21)
--- NOTE | 2017-09-27 17:01 | Internal Med Progress Note ---
Date of Encounter: 09/27/17 Time of Encounter: 09:30 - Assessment and plan (1) VICKI (acute kidney injury) Current Visit: Yes Status: Acute Assessment and plan: Baseline serum creatinine noted to be 1.3-1.5, currently improving since admission, 1.9 today. Continue to monitor closely as patient is on IV diuresis. (2) New onset a-fib Current Visit: Yes Status: Acute Assessment and plan: EKG at admission revealed atrial fibrillation. Cardiology consult appreciated, patient acknowledges history of atrial fibrillation. Currently rate controlled. Beta krishna is on hold due to hypotension at admission, to resume his blood pressure stabilizes. Continue telemetry monitoring. Patient is not a candidate for anticoagulation at this time given acute anemia. (3) Pneumonia Current Visit: Yes Status: Acute Assessment and plan: Chest x-ray reviewed independently, compared to imaging from previous admission- continues to have cardiomegaly, significant infiltrates bilaterally suggestive of pulmonary edema, right middle and right lower lobe also has focal consolidation, concerning for pneumonia. Blood cultures have not been sent from the emergency room, will send 2 sets now. Check urine legionella and strep pneumoniae antigen, nasal MRSA screen. Due to recent hospitalization, continue broad-spectrum IV antibiotics-vancomycin , Zosyn, Levaquin. Continue supportive care and supplemental oxygen. Qualifiers: Pneumonia type: due to unspecified organism Laterality: right Lung location: lower lobe of lung Qualified Code(s): J18.1 - Lobar pneumonia, unspecified organism (4) Anemia Current Visit: Yes Status: Acute Assessment and plan: Patient has chronic anemia with baseline hemoglobin around 9, likely due to chronic kidney disease; admitted with 6.8, received 1 unit PRBC transfusion, improved to 9.1 today. Qualifiers: Anemia type: unspecified type Qualified Code(s): D64.9 - Anemia, unspecified (5) Acute on chronic diastolic CHF (congestive heart failure) Current Visit: Yes Status: Acute Assessment and plan: Echocardiogram during previous admission showed preserved EF, diastolic dysfunction with elevated filling pressures, moderate to severe mitral annular calcification, mild to moderate MR and MS, moderate , moderate TR, severe pulmonary hypertension. Cardiology consult appreciated. Agree with continued diuresis with IV Lasix, fluid restriction, urine output monitoring, resume beta krishna as blood pressure tolerates. Recommend conservative medical management for valvular heart disease. Continue telemetry monitoring. Serial troponins not suggestive of ACS. (6) Hypertension Current Visit: Yes Status: Chronic Assessment and plan: Blood pressure has been low at admission, currently improving. Will resume beta krishna. Qualifiers: Hypertension type: essential hypertension Qualified Code(s): I10 - Essential (primary) hypertension (7) CKD (chronic kidney disease) stage 3, GFR 30-59 ml/min Current Visit: Yes Status: Chronic (8) COPD (chronic obstructive pulmonary disease) Current Visit: Yes Status: Chronic Assessment and plan: Continue PRN breathing treatments and supplemental O2; not in acute exacerbation ; Qualifiers: COPD type: unspecified COPD Qualified Code(s): J44.9 - Chronic obstructive pulmonary disease, unspecified (9) Chronic respiratory failure Current Visit: Yes Status: Chronic Qualifiers: Respiratory failure complication: hypoxia Qualified Code(s): J96.11 - Chronic respiratory failure with hypoxia - Time Spent With Patient Total time spent is greater than 50% in coordination of care (as documented) at patient's floor/unit and/or counseling patient: - Subjective Interval history: Unable to provide complete history. She was recently discharged to [facility] after being treated for heart failure. She denies new complaints, does not know the reason for readmission. Reports leg swelling, has not been able to walk much recently. No chest pain or shortness of breath, has chronic dry cough. - Constitutional Vitals: Temp Pulse Resp BP Pulse Ox 98.7 F 93 18 133/62 99 09/27/17 15:06 09/27/17 15:50 09/27/17 15:06 09/27/17 15:06 09/27/17 15:06 General appearance: Present: cooperative, A&O X 3, obese, answers questions appropriately - Respiratory Respiratory exam: Present: CTAB, rales (B/L crackles). Absent: accessory muscle use, rhonchi, wheezes - Cardiovascular Cardiovascular exam: Present: RRR, +S1, +S2. Absent: diastolic murmur, gallop, rubs, systolic murmur - GI/Abdominal GI/Abdominal exam: Present: normal bowel sounds, soft (obese), no peritoneal signs. Absent: distended, tenderness - Extremities Exam Extremities exam: Present: full ROM, pedal edema (2+ pitting pedal edema B/L), warm, radial pulses palpable and symmetrical. Absent: calf tenderness, cyanotic - Neurological Exam Neurological exam: Present: CN II-XII intact, oriented X3, no focal deficits. Absent: pronater drift, facial droop, speech deficit Internal Medicine: Result - Labs CBC & Chem 7: 09/27/17 10:58 09/27/17 10:58 - VTE Documentation of Mechanical Device: Intermittent pneumatic compression device Consult Discharge Plan - Plan Referrals: Maya Dumont, BETH [Primary Care Provider] -
[2017-09-27] MEDS: Mirtazapine 15 MG TABLET PO SCH (22:06)
[2017-09-28 03:09] LABS: Basophils % 0.4 %; Eosinophils # 0.5 K/mcL (0.0-0.6); Eosinophils % 8.9 %; Hematocrit 29.9 % (35.3-44.9); Hemoglobin 9.4 g/dL (11.5-15.4); Immature Granulocytes % 0.2 % (0-4); Lymphocytes # 0.7 K/mcL (0.6-4.6); Lymphocytes % 13.7 %; Mean Corpuscular HGB Conc 31.4 g/dL (31.6-35.5); Mean Corpuscular Hemoglobin 36.4 pg (28.0-33.3); Mean Corpuscular Volume 115.9 fL (83.0-100.0); Mean Platelet Volume 12.1 fL (9.4-12.4); Monocytes # 0.8 K/mcL (0.0-1.3); Neutrophils # 3.4 K/mcL (1.6-8.9); Platelet Count 128 K/mcL (140-400); Red Blood Count 2.58 M/mcL (3.82-4.97); Red Cell Distribution Width 18.2 % (11.5-14.5); Segmented Neutrophils % 62.8 %
[2017-09-28 03:34] LABS: Calcium 8.7 mg/dL (8.6-10.3); Potassium 3.7 mEq/L (3.5-5.1)
[2017-09-28 03:47] LABS: Macrocytosis Present (Not Present); Platelet Estimate Normal (Normal)
[2017-09-28] MEDS: Piperacillin/Tazobactam 3.375 GM in 0.9 % Sodium Chloride Mini Bag 100 ML IVPB SCH (04:48)
[2017-09-28] MEDS: Furosemide 40 MG/4 ML VIAL IVP SCH ×2 (08:50→16:46)
[2017-09-28] MEDS: Fluticasone Propionate Nasal 50 MCG/SPRAY BOTTLE NS SCH (08:51)
[2017-09-28] MEDS: Aspirin Enteric Coated 81 MG Tablet PO SCH (10:09)
--- NOTE | 2017-09-28 13:15 | Internal Med Progress Note ---
Date of Encounter: 09/28/17 Time of Encounter: 09:45 - Assessment and plan (1) VICKI (acute kidney injury) Current Visit: Yes Status: Acute Assessment and plan: Baseline serum creatinine noted to be 1.3-1.5, currently stable at 1.9. Continue to monitor closely as patient is on IV diuresis. (2) New onset a-fib Current Visit: Yes Status: Acute Assessment and plan: EKG at admission revealed atrial fibrillation. Cardiology consult appreciated, patient acknowledges history of atrial fibrillation. Currently rate controlled. Will resume Beta krishna as BP improved; Continue telemetry monitoring. ASA recommended and started for stroke prophylaxis; (3) Pneumonia Current Visit: Yes Status: Acute Assessment and plan: Chest x-ray reviewed independently, compared to imaging from previous admission- continues to have cardiomegaly, significant infiltrates bilaterally suggestive of pulmonary edema, right middle and right lower lobe also has focal consolidation, concerning for pneumonia. Blood cultures so far negative. Pending urine legionella and strep pneumoniae antigen, patient refused nasal MRSA screen. continue IV Levaquin and hold Vancomycin and Zosyn; Continue supportive care and supplemental oxygen. Qualifiers: Pneumonia type: due to unspecified organism Laterality: right Lung location: lower lobe of lung Qualified Code(s): J18.1 - Lobar pneumonia, unspecified organism (4) Anemia Current Visit: Yes Status: Acute Assessment and plan: Patient has chronic anemia with baseline hemoglobin around 9, likely due to chronic kidney disease; admitted with 6.8, s/p 1 unit PRBC transfusion; Hb stable at 9.4 today; Qualifiers: Anemia type: unspecified type Qualified Code(s): D64.9 - Anemia, unspecified (5) Acute on chronic diastolic CHF (congestive heart failure) Current Visit: Yes Status: Acute Assessment and plan: Echocardiogram during previous admission showed preserved EF, diastolic dysfunction with elevated filling pressures, moderate to severe mitral annular calcification, mild to moderate MR and MS, moderate , moderate TR, severe pulmonary hypertension. Cardiology consult appreciated. continue diuresis with IV Lasix, fluid restriction, urine output monitoring, beta krishna. Recommend conservative medical management for valvular heart disease. Continue telemetry monitoring. Serial troponins not suggestive of ACS. (6) Hypertension Current Visit: Yes Status: Chronic Qualifiers: Hypertension type: essential hypertension Qualified Code(s): I10 - Essential (primary) hypertension (7) CKD (chronic kidney disease) stage 3, GFR 30-59 ml/min Current Visit: Yes Status: Chronic (8) COPD (chronic obstructive pulmonary disease) Current Visit: Yes Status: Chronic Qualifiers: COPD type: unspecified COPD Qualified Code(s): J44.9 - Chronic obstructive pulmonary disease, unspecified (9) Chronic respiratory failure Current Visit: Yes Status: Chronic Qualifiers: Respiratory failure complication: hypoxia Qualified Code(s): J96.11 - Chronic respiratory failure with hypoxia - Time Spent With Patient Total time spent is greater than 50% in coordination of care (as documented) at patient's floor/unit and/or counseling patient: - Subjective Interval history: Appears better today, sitting up in chair; no chest pain, shortness of breath; improved cough; no palpitations; continues to have leg swelling; - Constitutional Vitals: Temp Pulse Resp BP Pulse Ox 98.3 F 86 18 141/73 98 09/28/17 11:58 09/28/17 11:58 09/28/17 11:58 09/28/17 11:58 09/28/17 11:58 General appearance: Present: cooperative, A&O X 3, obese, answers questions appropriately - Respiratory Respiratory exam: Present: CTAB, rales (bibasal crackles). Absent: accessory muscle use, rhonchi, wheezes - Cardiovascular Cardiovascular exam: Present: irregular rhythm, +S1, +S2. Absent: diastolic murmur, gallop, rubs, systolic murmur - GI/Abdominal GI/Abdominal exam: Present: normal bowel sounds, soft, no peritoneal signs. Absent: distended, tenderness - Extremities Exam Extremities exam: Present: pedal edema, warm, radial pulses palpable and symmetrical. Absent: calf tenderness, cyanotic Internal Medicine: Result - Labs CBC & Chem 7: 09/28/17 02:23 09/28/17 02:23 Labs: Short CBC 09/28/17 Range/Units 02:23 WBC 5.4 (4.3-11.1) K/mcL Hgb 9.4 L (11.5-15.4) g/dL Hct 29.9 L (35.3-44.9) % Plt Count 128 L (140-400) K/mcL Neutrophils # 3.4 (1.6-8.9) K/mcL BMP 09/28/17 02:23 Sodium 146 H Potassium 3.7 Chloride 99 Carbon Dioxide 42 H* BUN 44 H Creatinine 1.92 H Glucose 93 Calcium 8.7 - VTE Documentation of Mechanical Device: Intermittent pneumatic compression device Consult Discharge Plan - Plan Referrals: Maya Dumont CNP [Primary Care Provider] -
[2017-09-28] MEDS ORDERED: Acetaminophen 325 MG TABLET PO PRN (18:24)
[2017-09-28] MEDS: Mirtazapine 15 MG TABLET PO SCH (19:35)
[2017-09-28] MEDS: Levofloxacin 750 MG/150 ML 750 MG/150 ML BAG IVPB SCH (23:13)
[2017-09-29 03:59] LABS: Basophils % 0.3 %; Eosinophils # 0.8 K/mcL (0.0-0.6); Eosinophils % 11.2 %; Hemoglobin 9.4 g/dL (11.5-15.4); Immature Granulocytes % 0.4 % (0-4); Lymphocytes # 0.9 K/mcL (0.6-4.6); Lymphocytes % 12.8 %; Mean Corpuscular HGB Conc 31.3 g/dL (31.6-35.5); Mean Corpuscular Hemoglobin 36.7 pg (28.0-33.3); Mean Corpuscular Volume 117.2 fL (83.0-100.0); Mean Platelet Volume 11.6 fL (9.4-12.4); Monocytes # 0.8 K/mcL (0.0-1.3); Monocytes % 12.2 %; Platelet Count 135 K/mcL (140-400); Red Blood Count 2.56 M/mcL (3.82-4.97); Red Cell Distribution Width 17.4 % (11.5-14.5); Segmented Neutrophils % 63.1 %
[2017-09-29 04:00] LABS: Neutrophils # 4.4 K/mcL (1.6-8.9)
[2017-09-29 04:21] LABS: Macrocytosis Present (Not Present); Platelet Estimate Slight Decrease (Normal)
[2017-09-29 04:22] LABS: Anisocytosis 1+ (Not Present)
[2017-09-29 04:24] LABS: Calcium 8.9 mg/dL (8.6-10.3)
[2017-09-29] MEDS ORDERED: Ondansetron ODT 4 MG TAB.RAPDIS SL ONE (05:01)
[2017-09-29] MEDS: Furosemide 40 MG/4 ML VIAL IVP SCH ×2 (08:22→16:19)
[2017-09-29] MEDS: Aspirin Enteric Coated 81 MG Tablet PO SCH (08:23)
[2017-09-29] MEDS: Fluticasone Propionate Nasal 50 MCG/SPRAY BOTTLE NS SCH (08:24)
[2017-09-29 15:56] LABS: ABG Base Excess 18 mEq/L (-2 to 3); ABG HCO3 47 mEq/L (21-27); ABG Oxygen Saturation 98 % (95-98); ABG PCO2 94 mmHg (35-45); ABG PH 7.31 pH Units (7.32-7.45); ABG PO2 127 mmHg (85-104); ABG TCO2 50 mEq/L (20-26)
--- NOTE | 2017-09-29 16:16 | Internal Med Progress Note ---
Hospitalist Progress Note - Encounter Date of Encounter: 09/29/17 Time of Encounter: 16:11 - Subjective Interval History: Patient is very sleepy and drowsy today but arousable easily. Oriented 3. she follows the command and move all extremities. Family at bedside. Review the lab with trending down creatinine. Patient denies fever chills nausea vomiting headache dizziness chest pain shortness of breath abdominal pain urinary complaint or bowel complaint - Exam Vitals: Temp Pulse Resp BP Pulse Ox 98 F 86 18 141/75 94 09/29/17 10:49 09/29/17 15:00 09/29/17 10:49 09/29/17 11:05 09/29/17 10:49 Exam: General appearance: No acute distress, oxygen by nasal cannula, family bedside Head exam: Atraumatic Eye exam: EOMI, PERRLA ENT exam: Moist oral mucosa Neck nontender, supple Respiratory exam: Decreased breath sound at the base with few rales Cardiovascular exam: Irregular rhythm, 2 x 6 systolic murmur Abdominal exam: Soft, nontender, nondistended, positive bowel sounds Extremities exam: No calf tenderness, no pedal edema Present: Skin- warm, dry, intact Neurological exam: Sleepy but arousable on addressing the name and given appropriate consult and go back to sleep. Motor 5 x 5 in all 4 extremities, grossly CN II-XII intact, no focal deficits. No facial droop. - Assessment and Plan (1) CO2 narcosis Current Visit: Yes Status: Acute Assessment and Plan: ABG with worsening of CO2. Patient also symptomatic with drowsy and sleepiness with no focal neurological deficit. BiPAP is started. Will repeat ABG. The patient does not improve or any neurological concern then will order head CT to rule out underlying CVA. No C-reactive on narcotics. Held Remeron tablet. (2) Pneumonia Current Visit: Yes Status: Acute Assessment and Plan: Chest x-ray reviewed independently, compared to imaging from previous admission- continues to have cardiomegaly, significant infiltrates bilaterally suggestive of pulmonary edema, right middle and right lower lobe also has focal consolidation, concerning for pneumonia. Blood cultures so far negative. Negative urine legionella. Pending strep pneumoniae antigen, patient refused nasal MRSA screen. continue IV Levaquin . Discontinued Vancomycin and Zosyn; Continue supportive care and supplemental oxygen. Repeat chest x-ray (3) New onset a-fib Current Visit: Yes Status: Acute Assessment and Plan: PAF with controlled rate. EKG at admission revealed atrial fibrillation. Cardiology consult appreciated, patient acknowledges history of atrial fibrillation. Continue Beta krishna . Check Pilot recommended aspirin as anticoagulation. (4) VICKI (acute kidney injury) Current Visit: Yes Status: Acute Assessment and Plan: Acute on CK D. Baseline serum creatinine noted to be 1.3-1.5. Trending down creatinine level. A strict I&O's, avoid nephrotoxic drug. Continue to monitor closely as patient is on IV diuresis. (5) Anemia Current Visit: Yes Status: Acute Assessment and Plan: Patient has chronic anemia with baseline hemoglobin around 9, likely due to chronic kidney disease; admitted with 6.8, s/p 1 unit PRC. Hemoglobin has been is staying more than 9 after 1 unit PRC. (6) COPD (chronic obstructive pulmonary disease) Current Visit: Yes Status: Chronic Assessment and Plan: Continue PRN breathing treatments and supplemental O2; not in acute exacerbation. Close monitoring (7) Acute on chronic diastolic CHF (congestive heart failure) Current Visit: Yes Status: Acute Assessment and Plan: Echocardiogram during previous admission showed preserved EF, diastolic dysfunction with elevated filling pressures, moderate to severe mitral annular calcification, mild to moderate MR and MS, moderate , moderate TR, severe pulmonary hypertension. Cardiology was consulted who advise for conservative medical management. continue diuresis with IV Lasix, fluid restriction, strict I&O's. Will change to oral Lasix on discharge. Recommend conservative medical management for valvular heart disease. Continue telemetry monitoring. Serial troponins not suggestive of ACS. (8) Hypertension Current Visit: Yes Status: Chronic Assessment and Plan: Continue beta krishna. Close monitoring of BP (9) Chronic respiratory failure Current Visit: Yes Status: Chronic Assessment and Plan: Chronic elevation of bicarbonate. Now patient has acute on chronic respiratory failure and developed CO2 narcosis therefore BiPAP was started. Will consult rn delivery if needed. Patient may need BiPAP evaluation prior to discharge (10) DVT prophylaxis Current Visit: Yes Status: Acute Assessment and Plan: SCDs, heparin subcutaneous - Time Spent with Patient Total time spent is greater than 50% in coordination of care (as documented) at patient's floor/unit and/or counseling patient: Greater than 35 minutes (Is been more than 35 minute inpatient care communication with patient and family especially son who had lots of questions and I answered to my best knowledge) Internal Medicine: Result - Labs CBC & Chem 7: 09/29/17 03:43 09/29/17 03:43 Labs: Short CBC 09/29/17 Range/Units 03:43 WBC 6.9 (4.3-11.1) K/mcL Hgb 9.4 L (11.5-15.4) g/dL Hct 30.0 L (35.3-44.9) % Plt Count 135 L (140-400) K/mcL Neutrophils # 4.4 (1.6-8.9) K/mcL BMP 09/29/17 03:43 Sodium 146 H Potassium 4.0 Chloride 99 Carbon Dioxide 40 H* BUN 41 H Creatinine 1.75 H Glucose 91 Calcium 8.9 - ABG Interpretation ABG results: ABG ABG pH 7.31 pH Units (7.32-7.45) L 09/29/17 15:47 ABG pCO2 94 mmHg (35-45) H* 09/29/17 15:47 ABG pO2 127 mmHg (85-104) H 09/29/17 15:47 ABG O2 Saturation 98 % (95-98) 09/29/17 15:47 - VTE Documentation of Mechanical Device: Intermittent pneumatic compression device Consult Discharge Plan - Plan Referrals: Shelly Chowdhury, HEAD LIBRARIAN [Advanced Practice Nurse] - (Pt is From [facility] no PCP appointment needed) (2) Pneumonia Qualifiers: Pneumonia type: due to unspecified organism Laterality: right Lung location : lower lobe of lung Qualified Code(s): J18.1 - Lobar pneumonia, unspecified organism (5) Anemia Qualifiers: Anemia type: unspecified type Qualified Code(s): D64.9 - Anemia, unspecified (6) COPD (chronic obstructive pulmonary disease) Qualifiers: COPD type: unspecified COPD Qualified Code(s): J44.9 - Chronic obstructive pulmonary disease, unspecified (8) Hypertension Qualifiers: Hypertension type: essential hypertension Qualified Code(s): I10 - Essential (primary) hypertension (9) Chronic respiratory failure Qualifiers: Respiratory failure complication: hypoxia Qualified Code(s): J96.11 - Chronic respiratory failure with hypoxia
[2017-09-29] MEDS: *HR* Heparin 5,000 UNIT/ML VIAL SQ SCH (16:18)
--- NOTE | 2017-09-29 17:49 | Electrocardiograph Report ---
[address] [place] [address] Test Date: 2017-09-26 Pat Name: Mary Monique Department: 103 Room: 2N15 Gender: F Gut Carrier: ERROL : 1935 Requested By: Pravin Flores Order Number: [id number] Reading MD: Мария Gray Measurements Intervals [place] Rate: 75 P: LA: 0 QRS: 49 QRSD: 94 T: 91 QT: 356 QTc: 385 Interpretive Statements ATRIAL FIBRILLATION INCOMPLETE RIGHT BUNDLE BRANCH BLOCK [90+ ms QRS DURATION, TERMINAL R IN V1/V2, 40+ ms S IN I/aVL/V4/V5/V6] ANTEROSEPTAL MYOCARDIAL INFARCTION [40+ ms Q WAVE IN V1-V4], OF INDETERMINATE AGE Electronically Signed On 09-29-2017 17:47:51 EDT by Мария Gray
[2017-09-30] MEDS: *HR* Heparin 5,000 UNIT/ML VIAL SQ SCH ×2 (05:29→16:26)
[2017-09-30 05:30] LABS: ABG Base Excess 20 mEq/L (-2 to 3); ABG HCO3 47 mEq/L (21-27); ABG Oxygen Saturation 99 % (95-98); ABG PCO2 70 mmHg (35-45); ABG PH 7.44 pH Units (7.32-7.45); ABG PO2 127 mmHg (85-104); ABG TCO2 50 mEq/L (20-26)
[2017-09-30] MEDS: Cholecalciferol (D-3) 1,000 UNIT TABLET PO SCH (07:22)
[2017-09-30] MEDS: Aspirin Enteric Coated 81 MG Tablet PO SCH (07:22)
[2017-09-30] MEDS: Multivit/Ca/Min/Fe/FA 1 TAB TABLET PO SCH (07:22)
[2017-09-30] MEDS: Fluticasone Propionate Nasal 50 MCG/SPRAY BOTTLE NS SCH (07:23)
[2017-09-30] MEDS: Furosemide 40 MG/4 ML VIAL IVP SCH ×2 (07:23→16:26)
[2017-09-30 08:41] LABS: Calcium 9.4 mg/dL (8.6-10.3); Potassium 3.6 mEq/L (3.5-5.1)
[2017-09-30] MEDS ORDERED: NON-FORMULARY MEDICATION 1 EACH EACH (Pantoprazole Sodium [Protonix] 40 MG) PO SCH (09:00)
--- NOTE | 2017-09-30 16:20 | Internal Med Progress Note ---
Hospitalist Progress Note - Encounter Date of Encounter: 09/30/17 Time of Encounter: 16:15 - Subjective Interval History: Patient is awake alert oriented, communicative. Family at bedside. Review the lab with trending down creatinine. Patient denies fever chills nausea vomiting headache dizziness chest pain shortness of breath abdominal pain. - Exam Vitals: Temp Pulse Resp BP Pulse Ox 98.6 F 87 18 137/91 96 09/30/17 11:12 09/30/17 11:12 09/30/17 11:12 09/30/17 11:12 09/30/17 13:49 Exam: General appearance: No acute distress, A&O X 3 Head exam: Atraumatic Eye exam: EOMI, PERRLA ENT exam: Moist oral mucosa Neck nontender, supple Respiratory exam: Decreased breath sounds at base bilaterally Cardiovascular exam: Regular rate and rhythm, no systolic murmur Abdominal exam: Soft, nontender, nondistended, positive bowel sounds Extremities exam: No calf tenderness, no pedal edema Present: Skin- warm, dry, intact Neurological exam: CN II-XII intact, no focal deficits. No facial droop. Normal speech. Motor 5 x 5 in all 4 extremities - Assessment and Plan (1) CO2 narcosis Current Visit: Yes Status: Acute Assessment and Plan: Result. Trending down CO2 on repeat ABG. Patient was on BiPAP overnight and improved significantly. Today patient alert awake oriented. BiPAP qualification test done and patient qualified for home. Will also perform 6 minute home oxygen test. Will monitor patient today and plan for discharge tomorrow if continued to be stable. Continue to hold Remeron tablet for now. (2) Pneumonia Current Visit: Yes Status: Acute Assessment and Plan: Chest x-ray with finding of cardiomegaly, significant infiltrates bilaterally suggestive of pulmonary edema, right middle and right lower lobe also has focal consolidation, concerning for pneumonia. Repeat chest x-ray with persistent diffuse airspace disease and right pleural effusion is slightly increased in finding compatible with pneumonia or edema. Patient improving clinically. Blood cultures so far negative. Negative urine legionella. Pending strep pneumoniae antigen, patient refused nasal MRSA screen. continue IV Levaquin . Discontinued Vancomycin and Zosyn. Continue supportive care and supplemental oxygen. (3) New onset a-fib Current Visit: Yes Status: Acute Assessment and Plan: PAF with controlled rate. EKG at admission revealed atrial fibrillation. Cardiology consult appreciated, patient acknowledges history of atrial fibrillation. Continue Beta krishna . Prick Stitcher recommended aspirin as anticoagulation. (4) VICKI (acute kidney injury) Current Visit: Yes Status: Acute Assessment and Plan: Acute on CK D. Baseline serum creatinine noted to be 1.3-1.5. Trending down creatinine level. A strict I&O's, avoid nephrotoxic drug. Continue to monitor closely as patient is on IV diuresis. (5) Anemia Current Visit: Yes Status: Acute Assessment and Plan: Patient has chronic anemia with baseline hemoglobin around 9, likely due to chronic kidney disease; admitted with 6.8, s/p 1 unit PRC. Hemoglobin has been is staying more than 9 after 1 unit PRC. (6) COPD (chronic obstructive pulmonary disease) Current Visit: Yes Status: Chronic Assessment and Plan: Continue PRN breathing treatments and supplemental O2; not in acute exacerbation. Close monitoring (7) Acute on chronic diastolic CHF (congestive heart failure) Current Visit: Yes Status: Acute Assessment and Plan: Echocardiogram during previous admission showed preserved EF, diastolic dysfunction with elevated filling pressures, moderate to severe mitral annular calcification, mild to moderate MR and MS, moderate , moderate TR, severe pulmonary hypertension. Cardiology was consulted who advise for conservative medical management. continue diuresis with IV Lasix, fluid restriction, strict I&O's. Will change to oral Lasix on discharge. Recommend conservative medical management for valvular heart disease. Continue telemetry monitoring. Serial troponins not suggestive of ACS. (8) Hypertension Current Visit: Yes Status: Chronic Assessment and Plan: Continue beta krishna. Close monitoring of BP (9) Chronic respiratory failure Current Visit: Yes Status: Chronic Assessment and Plan: Chronic elevation of bicarbonate. Patient qualified for home BiPAP. (10) Generalized weakness Current Visit: Yes Status: Acute Assessment and Plan: Consulted PT OT. animal nursery worker for discharge planning (11) DVT prophylaxis Current Visit: Yes Status: Acute Assessment and Plan: SCDs, heparin subcutaneous - Time Spent with Patient Total time spent is greater than 50% in coordination of care (as documented) at patient's floor/unit and/or counseling patient: 25 - 35 minutes Internal Medicine: Result - Labs CBC & Chem 7: 09/29/17 03:43 09/30/17 08:04 Labs: BMP 09/30/17 08:04 Sodium 148 H Potassium 3.6 Chloride 98 Carbon Dioxide 44 H* BUN 38 H Creatinine 1.74 H Glucose 122 H Calcium 9.4 - ABG Interpretation ABG results: ABG ABG pH 7.44 pH Units (7.32-7.45) 09/30/17 05:27 ABG pCO2 70 mmHg (35-45) H* 09/30/17 05:27 ABG pO2 127 mmHg (85-104) H 09/30/17 05:27 ABG O2 Saturation 99 % (95-98) H 09/30/17 05:27 - Impressions Impressions Chest X-Ray 09/29/17 18:23 IMPRESSION: Persistent diffuse airspace disease and right pleural effusion, slightly increased since the prior study. Findings are compatible with pneumonia and/or edema. D/ / Lisa Mueller Cha, MD / Lisa Mueller Cha, MD Interpreting Provider: Lisa Mueller Cha, MD - VTE Documentation of Mechanical Device: Intermittent pneumatic compression device Consult Discharge Plan - Plan Referrals: Shelly Chowdhury, PROCESS ANALYST [Advanced Practice Nurse] - (Pt is From [facility] no PCP appointment needed) (2) Pneumonia Qualifiers: Pneumonia type: due to unspecified organism Laterality: right Lung location : lower lobe of lung Qualified Code(s): J18.1 - Lobar pneumonia, unspecified organism (5) Anemia Qualifiers: Anemia type: unspecified type Qualified Code(s): D64.9 - Anemia, unspecified (6) COPD (chronic obstructive pulmonary disease) Qualifiers: COPD type: unspecified COPD Qualified Code(s): J44.9 - Chronic obstructive pulmonary disease, unspecified (8) Hypertension Qualifiers: Hypertension type: essential hypertension Qualified Code(s): I10 - Essential (primary) hypertension (9) Chronic respiratory failure Qualifiers: Respiratory failure complication: hypoxia Qualified Code(s): J96.11 - Chronic respiratory failure with hypoxia
[2017-09-30 17:53] LABS: ABG Base Excess 23 mEq/L (-2 to 3); ABG HCO3 51 mEq/L (21-27); ABG Oxygen Saturation 95 % (95-98); ABG PCO2 72 mmHg (35-45); ABG PH 7.46 pH Units (7.32-7.45); ABG PO2 76 mmHg (85-104); ABG TCO2 53 mEq/L (20-26); Blood Gas PEEP 12 cm H2O
[2017-10-01 05:50] LABS: Basophils % 0.4 %; Hemoglobin 8.9 g/dL (11.5-15.4); Mean Corpuscular Hemoglobin 36.3 pg (28.0-33.3); Red Blood Count 2.45 M/mcL (3.82-4.97)
[2017-10-01 05:52] LABS: Eosinophils # 0.5 K/mcL (0.0-0.6); Eosinophils % 8.8 %; Hematocrit 28.5 % (35.3-44.9); Immature Granulocytes % 0.6 % (0-4); Immature Platelets 5.4 % (1.1-6.1); Lymphocytes # 0.9 K/mcL (0.6-4.6); Lymphocytes % 16.5 %; Mean Corpuscular HGB Conc 31.2 g/dL (31.6-35.5); Mean Corpuscular Volume 116.3 fL (83.0-100.0); Mean Platelet Volume 11.7 fL (9.4-12.4); Monocytes # 0.6 K/mcL (0.0-1.3); Monocytes % 11.8 %; Neutrophils # 3.3 K/mcL (1.6-8.9); Platelet Count 93 K/mcL (140-400); Red Cell Distribution Width 17.2 % (11.5-14.5); Segmented Neutrophils % 61.9 %
[2017-10-01 06:19] LABS: Calcium 9.3 mg/dL (8.6-10.3); Potassium 3.7 mEq/L (3.5-5.1)
[2017-10-01] MEDS: *HR* Heparin 5,000 UNIT/ML VIAL SQ SCH ×2 (06:40→16:36)
--- NOTE | 2017-10-01 06:48 | Pulmonology Consult Note ---
<IsmaelradhaMatt M - Last Filed: 10/01/17 15:28> Date of Encounter: 10/01/17 Medications and Allergies Mv-Mn/FA/Vit K/Lycop/Lut/Coq10 [Daily Multivitamin Capsule] 1 tab PO DAILY 05/27 [History] Calcium Carbonate/Vitamin D3 [Calcium 500 + Vit D Caplet] 1 each PO BID [History] Docusate [Colace] 100 mg PO BID PRN 06/26/16 [History] Mirtazapine 7.5 mg PO HS 06/26/16 [History] Pantoprazole Sodium [Protonix] 40 mg PO DAILY 06/26/16 [History] Ferrous Sulfate [Iron] 325 mg PO DAILY 02/11/17 [History] Aspirin 81 mg PO Q48H #0 09/07/17 [Rx] Carvedilol 12.5 mg PO BID #60 tab 09/07/17 [Rx] Fluticasone Propionate Nasal [Flonase] 1 spr NS DAILY 09/16/17 [History] Furosemide [Lasix] 40 mg PO DAILY 30 Days #30 tablet 09/22/17 [Rx] 3 Allergy/AdvReac Type Severity Reaction Status Date / Time No Known Allergies Allergy Verified 09/26/17 17:02 All Systems: The remainder of the systems were reviewed and are negative Results - Laboratory Findings CBC and BMP: 10/01/17 05:35 10/01/17 05:35 ABG ABG pH 7.46 pH Units (7.32-7.45) H 09/30/17 17:44 ABG pCO2 72 mmHg (35-45) H* 09/30/17 17:44 ABG pO2 76 mmHg (85-104) L 09/30/17 17:44 ABG O2 Saturation 95 % (95-98) 09/30/17 17:44 PT/INR, D-dimer PT 13.6 Seconds (9.4-12.1) H 10/01/17 09:36 Abnormal lab findings: Abnormal lab results RBC 2.45 M/mcL (3.82-4.97) L 10/01/17 05:35 Hgb 8.9 g/dL (11.5-15.4) L 10/01/17 05:35 Hct 28.5 % (35.3-44.9) L 10/01/17 05:35 MCV 116.3 fL (83.0-100.0) H 10/01/17 05:35 MCH 36.3 pg (28.0-33.3) H 10/01/17 05:35 MCHC 31.2 g/dL (31.6-35.5) L 10/01/17 05:35 RDW 17.2 % (11.5-14.5) H 10/01/17 05:35 Plt Count 93 K/mcL (140-400) L 10/01/17 05:35 Platelet Estimate Slight Decrease (Normal) L 10/01/17 05:35 Anisocytosis 1+ (Not Present) A 09/29/17 03:43 Macrocytosis Present (Not Present) A 10/01/17 05:35 PT 13.6 Seconds (9.4-12.1) H 10/01/17 09:36 ABG pH 7.46 pH Units (7.32-7.45) H 09/30/17 17:44 ABG pCO2 72 mmHg (35-45) H* 09/30/17 17:44 ABG pO2 76 mmHg (85-104) L 09/30/17 17:44 ABG HCO3 51 mEq/L (21-27) H 09/30/17 17:44 ABG Total CO2 53 mEq/L (20-26) H 09/30/17 17:44 ABG Base Excess 23 mEq/L (-2 to 3) H 09/30/17 17:44 Sodium 150 mEq/L (136-145) H 10/01/17 05:35 Carbon Dioxide 44 mEq/L (23-29) H* 10/01/17 05:35 BUN 38 mg/dL (8-23) H 10/01/17 05:35 Creatinine 1.62 mg/dL (0.60-1.20) H 10/01/17 05:35 Est GFR ( Amer) 37 (> 60) L 10/01/17 05:35 Est GFR (Non-Af Amer) 31 (> 60) L 10/01/17 05:35 Calculated Osmolality 319 (280-300) H 10/01/17 05:35 Troponin I 0.06 ng/mL (< 0.04) H* 09/27/17 05:56 B-Natriuretic Peptide 1205 pg/mL (Less than 100) H 09/26/17 16:54 Urine Clarity Cloudy (Clear) A 09/27/17 09:40 Urine Blood Small (Negative) H 09/27/17 09:40 Ur Leukocyte Esterase Large (Negative) H 09/27/17 09:40 Urine Microscopic WBC TNTC per hpf (0-3) H 09/27/17 09:40 Ur Culture Indicated? YES (NO) A 09/27/17 09:40 Vancomycin Trough 16 mcg/mL (5-10) H 09/28/17 19:06 Antibody Screen POSITIVE A 09/26/17 16:54 - Clinical Findings Intake & Output: Intake & Output 09/30/17 10/01/17 10/01/17 23:59 07:59 15:59 Intake Total 240 / 240 Output Total 200 / 200 100 / 100 Balance -200 / -200 140 / 140 Weight 68.3 kg Consult Discharge Plan - Plan Referrals: Shelly Chowdhury, [employer] [Advanced Practice Nurse] - (Pt is From [facility] no PCP appointment needed) - Attending Attestation I examined this patient and my medical decision-making was reviewed with the Resident Physician. I agree with the documented findings, disposition and treatment plan as described except to the extent set forth below. Patient seen and examined. Labs, radiology, chart personally reviewed. 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 Pulmonary: Acceptable oxygenation and ventilation. 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 Changing CODE STATUS is very appropriate due to multiple comorbidities. Thank you for the consultation and please call for any questions. <Patricia Paige - Last Filed: 10/01/17 16:27> Date of Encounter: 10/01/17 Time of Encounter: 06:48 Assessment and Plan (1) Respiratory failure with hypoxia and hypercapnia Current Visit: Yes Status: Acute ABG at presentation showed pH of 7.31, PCO2 of 94 and serum bicarb was 42. She has history of hypoxia and had an acute on chronic respiratory failure. She is supposed to be on BIPAP and is not complaint. This respiratory failure is multifactorial and could be due to her worsening COPD along with the enlarged hiatal hernia making respiration difficult. -Due to her multiorgan involvement it would be our recommendation to consult palliative care -Continue Bipap -Continue Duoneb Qualifiers: Chronicity: acute on chronic Qualified Code(s): J96.21 - Acute and chronic respiratory failure with hypoxia; J96.22 - Acute and chronic respiratory failure with hypercapnia (2) Pneumonia Current Visit: Yes Status: Acute Suspected pneumonia. Was recently hospitalized. The chest x-ray shows increased opacity at both lower lung lobes and worse on the right lower lung lobe. Is afebrile and no increase in WBC, there is mild decrease in lung sounds at bilateral lower lobes. -Continue levaquin, renally dose Qualifiers: Pneumonia type: due to unspecified organism Laterality: bilateral Lung location: unspecified part of lung Qualified Code(s): J18.9 - Pneumonia, unspecified organism (3) Hiatal hernia Current Visit: Yes Status: Chronic Has history of a hiatal hernia and in her most recent CT image the hiatal hernia looks very large and can be contributing some of her respiratory status. (4) Anemia Current Visit: Yes Status: Acute Has history of chronic anemia ongoing since her first admission here in 2014. She has denied any hematochezia and can due due to her CKD. Received 1 unit of packed red blood cells at admission. Qualifiers: Anemia type: unspecified type Qualified Code(s): D64.9 - Anemia, unspecified (5) COPD (chronic obstructive pulmonary disease) Current Visit: Yes Status: Chronic History of chronic COPD. Her oxyenation status could be worsened due to her underlying lung disease. She is not compliant with the bipap and should continue to use it. Continue duonebs. Qualifiers: COPD type: unspecified COPD Qualified Code(s): J44.9 - Chronic obstructive pulmonary disease, unspecified (6) Acute on chronic diastolic (congestive) heart failure Current Visit: Yes Status: Acute History of CHF and her BNP at admission was 1205. She has chronic bilateral lower extremity edema. -Continue lasix -I/Os -Being managed by primary (7) Thrombocytopenia Current Visit: Yes Status: Acute Has chronic history of thrombocytopenia, likely due to CKD. History of Present Illness Consult date: 10/01/17 Requesting physician: Elizabeth Traore Reason for consult: pleural effusion Chief complaint: worsening shortness of breath History of present illness: Ms. Moniuqe is a 81 year old female who was seen at bedside this morning. She has history of CHF, HTN, HLD. She was at her detention found to have worsening oxygenation and swelling of bilateral lower extremities. She was recently treated for CHF exacerbation on 09/22/17. At admission her BNP was 1205 and hemoglobin was 7.1. Her chest x-ray shows bilateral increased opacity and right right lower lobe has increased opacity. She has history of hiatal hernia. Since her admission she has required a bipap and 2 liters of supplemental oxygen. Per her at times she becomes confused and is unable to speak due to her worsening oxygenation. At presentation her ABG was consistent for respiratory acidosis with a metabolic compensation. She denies any fever chills , cough or hemoptysis. Past Med Surg Social Fam HX - Past Medical History Medical history: CHF, hyperlipidemia, hypertension, renal disease, valvular heart disease Additional medical history: former smoker Psychiatric history: no psych history - Past Surgical History Surgical History: cholecystectomy, hip replacement, vascular surgery Additional surgical history: right 3 times - Social History Smoking Status: Former smoker Smokeless Tobacco Status: Yes Alcohol use: none Drug use: none - Family History Mother Living Status: Brother Living Status: Son Living Status: All Systems: The remainder of the systems were reviewed and are negative - Constitutional Constitutional: no chills, no fever(s) - EENT Nose, mouth and throat: no dysphagia, no nasal congestion - Cardiovascular Cardiovascular: dyspnea, leg edema, orthopnea, no chest pain - Respiratory Respiratory: dyspnea, no wheezing, no stridor, no pain on inspirtation - Gastrointestinal Gastrointestinal: no diarrhea, no nausea, no vomiting - Genitourinary Genitourinary: no dysuria - Neurological Neurological: no confusion - Psychiatric Psychiatric: no anxiety - Endocrine Endocrine: no flushing, no palpitations Physical Examination Vital Signs: Vital Signs, Last 4 Hours Temp Pulse Resp BP Pulse Ox 10/01/17 04:16 76 10/01/17 03:51 98.4 F 84 16 162/74 97 General appearance: no acute distress, alert ENT: oropharynx moist Neck: supple Effort: mildly labored Auscultation: bilateral: diminished breath sounds (lower lobes) Cardiovascular: irregular rhythm Gastrointestinal: soft, non-tender Integumentary: other (in a wrap for leg edema) Extremities: edema (bilateral lower legs, wrapped due to edema) mood appropriate, affect normal Results - Laboratory Findings CBC and BMP: 10/01/17 05:35 10/01/17 05:35 ABG ABG pH 7.46 pH Units (7.32-7.45) H 09/30/17 17:44 ABG pCO2 72 mmHg (35-45) H* 09/30/17 17:44 ABG pO2 76 mmHg (85-104) L 09/30/17 17:44 ABG O2 Saturation 95 % (95-98) 09/30/17 17:44 Abnormal lab findings: Abnormal lab results RBC 2.56 M/mcL (3.82-4.97) L 09/29/17 03:43 Hgb 9.4 g/dL (11.5-15.4) L 09/29/17 03:43 Hct 30.0 % (35.3-44.9) L 09/29/17 03:43 MCV 117.2 fL (83.0-100.0) H 09/29/17 03:43 MCH 36.7 pg (28.0-33.3) H 09/29/17 03:43 MCHC 31.3 g/dL (31.6-35.5) L 09/29/17 03:43 RDW 17.4 % (11.5-14.5) H 09/29/17 03:43 Plt Count 135 K/mcL (140-400) L 09/29/17 03:43 Eosinophils # 0.8 K/mcL (0.0-0.6) H 09/29/17 03:43 Platelet Estimate Slight Decrease (Normal) L 09/29/17 03:43 Anisocytosis 1+ (Not Present) A 09/29/17 03:43 Macrocytosis Present (Not Present) A 09/29/17 03:43 ABG pH 7.46 pH Units (7.32-7.45) H 09/30/17 17:44 ABG pCO2 72 mmHg (35-45) H* 09/30/17 17:44 ABG pO2 76 mmHg (85-104) L 09/30/17 17:44 ABG HCO3 51 mEq/L (21-27) H 09/30/17 17:44 ABG Total CO2 53 mEq/L (20-26) H 09/30/17 17:44 ABG Base Excess 23 mEq/L (-2 to 3) H 09/30/17 17:44 Sodium 150 mEq/L (136-145) H 10/01/17 05:35 Carbon Dioxide 44 mEq/L (23-29) H* 10/01/17 05:35 BUN 38 mg/dL (8-23) H 10/01/17 05:35 Creatinine 1.62 mg/dL (0.60-1.20) H 10/01/17 05:35 Est GFR ( Amer) 37 (> 60) L 10/01/17 05:35 Est GFR (Non-Af Amer) 31 (> 60) L 10/01/17 05:35 Calculated Osmolality 319 (280-300) H 10/01/17 05:35 Troponin I 0.06 ng/mL (< 0.04) H* 09/27/17 05:56 B-Natriuretic Peptide 1205 pg/mL (Less than 100) H 09/26/17 16:54 Urine Clarity Cloudy (Clear) A 09/27/17 09:40 Urine Blood Small (Negative) H 09/27/17 09:40 Ur Leukocyte Esterase Large (Negative) H 09/27/17 09:40 Urine Microscopic WBC TNTC per hpf (0-3) H 09/27/17 09:40 Ur Culture Indicated? YES (NO) A 09/27/17 09:40 Vancomycin Trough 16 mcg/mL (5-10) H 09/28/17 19:06 Antibody Screen POSITIVE A 09/26/17 16:54 - Diagnostic Findings Chest x-ray: image reviewed (bilateral diffuse airspace disase in lower lung lobes with more opacity in the right lower lobe) - Clinical Findings Intake & Output: Intake & Output 09/30/17 09/30/17 10/01/17 15:59 23:59 07:59 Intake Total 480 / 480 240 / 240 Output Total 700 / 700 200 / 200 100 / 100 Balance -220 / -220 -200 / -200 140 / 140 Weight 68.3 kg
[2017-10-01] MEDS: levoFLOXacin 500 MG TABLET PO SCH (07:28)
[2017-10-01] MEDS: Aspirin Enteric Coated 81 MG Tablet PO SCH (07:28)
[2017-10-01] MEDS: Multivit/Ca/Min/Fe/FA 1 TAB TABLET PO SCH (07:28)
[2017-10-01] MEDS: Furosemide 40 MG/4 ML VIAL IVP SCH ×2 (07:28→16:35)
[2017-10-01] MEDS: Cholecalciferol (D-3) 1,000 UNIT TABLET PO SCH (07:28)
[2017-10-01] MEDS: Fluticasone Propionate Nasal 50 MCG/SPRAY BOTTLE NS SCH (07:29)
[2017-10-01 09:12] LABS: Macrocytosis Present (Not Present); Platelet Estimate Slight Decrease (Normal)
[2017-10-01 09:50] LABS: INR 1.2; Prothrombin Time 13.6 Seconds (9.4-12.1)
--- NOTE | 2017-10-01 15:31 | Palliative - Consult Note ---
Date of Encounter: 10/01/17 Time of Encounter: 14:00 - Assessment and Plan (1) Acute on chronic diastolic CHF (congestive heart failure) Current Visit: Yes Status: Acute Assessment and plan: Moderate valve dysfunction. LVEF 60%. Cardiology consulted; made recommendations appreciated. (2) Atrial fibrillation Current Visit: Yes Status: Acute Assessment and plan: Patient continues to have irregular rhythm; rate controlled. Qualifiers: Atrial fibrillation type: unspecified Qualified Code(s): I48.91 - Unspecified atrial fibrillation (3) CO2 narcosis Current Visit: Yes Status: Acute (4) COPD (chronic obstructive pulmonary disease) Current Visit: Yes Status: Chronic Assessment and plan: Patient reported to be BiPAP dependent; however, does not qualify for BiPAP at home. Patient may return to [facility] on BiPAP or home with hospice with BiPAP. Continue BiPAP as tolerated and oxygen therapy. Qualifiers: COPD type: unspecified COPD Qualified Code(s): J44.9 - Chronic obstructive pulmonary disease, unspecified (5) Hiatal hernia Current Visit: No Status: Inactive Assessment and plan: Patient noted to have hiatal hernia making her not a candidate for thoracentesis for pleural effusion; patient and family verbalized understanding. (6) Goals of care, counseling/discussion Current Visit: Yes Status: Acute Assessment and plan: Met with patient and granddaughter Keira and Lily Daughter in law regarding plan of care at discharge. Patient verbalized understanding that patient's breathing could become more difficult. Patient's daughter in law verbalized would like for family meeting with patient's and 2 children to identify plan of care at discharge. Patient verbalized interest in returning to [facility] initially; however, would like to weigh all options when family present to ensure she feels like she is making right decision. Patient's daughter in law reported she is happy to arrange a time that would meet 2 children's needs for planning family meeting and would notify nursing personnel of time frame for family meeting. Palliative care will continue to follow to further discuss goals of care and discharge planning. Palliative-CN HPI - Data of Consult Patient: known to practice within the last 3 years Consult date: 10/01/17 Requesting Physician: Cesia Fisher MD Primary Care Provider: Maya Dumont CNP - Consult Narrative Palliative Care/Comfort Measures: Palliative care Reason for consult: Goals of care; Bipap dependent, severe pulmonary problem History of present illness: Ms. Monique is a 81 year old female Arrived to [facility] on 09/26/17 from Cardiology outpatient clinic with increased pitting edema of BLE, BNP of 1200, and outside shelter with concern for CHF exacerbation with increased oxygen requirements. Patient had been at [facility] 5 days for rehabilitation. Initial Chest x-ray shows: Re-demonstration of bilateral infiltrates worse on the right as well as right effusion. EKG showing: New onset Atrial fibrillation with incomplete right BBB and anteroseptal myocardial infarction of indeterminate age. PMH CHF, Hyperlipidemia, and HTN. Patient admitted and medically managed for CHF Exacerbation, elevated troponin, Atrial fibrillation, Pneumonia, and Anemia. Cardiology consulted; recommend conservative medical therapy, strict I&Os, daily weights, fluid restriction, and signed off. Repeat Chest x-ray on 09/29/17 showing: Persistent diffuse airspace disease and right pleural effusion, slightly increased. Pulmonary consult for increased shortness of breath and pleural effusion; per verbal report patient not a candidate for thoracentesis due to hernia. Palliative care consulted for: BiPAP dependent, severe underlying worsening pulmonary problems; goals of care. Palliative had also seen patient during last admission on 2017. Patient is lying in bed with eyes open as Primary RN is removing BiPAP and transitioning patient to MT; tolerated well. Patient is alert and oriented times 3. Patient able to follow commands and participate in conversation. Patients daughter in Law Lily and granddaughter Keira present at bedside. Patient denies pain, nausea, vomiting, dyspnea, or constipation during assessment. CC: Cesia Fisher MD Past Med Surg Social Fam HX - Past Medical History Medical history: CHF, hyperlipidemia, hypertension, renal disease, valvular heart disease Additional medical history: former smoker Psychiatric history: no psych history - Past Surgical History Surgical History: cholecystectomy, hip replacement, vascular surgery Additional surgical history: right 3 times - Social History Smoking Status: Former smoker Smokeless Tobacco Status: Yes Alcohol use: none Drug use: none - Family History Mother Living Status: Brother Living Status: Son Living Status: Medications and Allergies Mv-Mn/FA/Vit K/Lycop/Lut/Coq10 [Daily Multivitamin Capsule] 1 tab PO DAILY 05/27 [History] Calcium Carbonate/Vitamin D3 [Calcium 500 + Vit D Caplet] 1 each PO BID [History] Docusate [Colace] 100 mg PO BID PRN 06/26/16 [History] Mirtazapine 7.5 mg PO HS 06/26/16 [History] Pantoprazole Sodium [Protonix] 40 mg PO DAILY 06/26/16 [History] Ferrous Sulfate [Iron] 325 mg PO DAILY 02/11/17 [History] Fluticasone Propionate Nasal [Flonase] 1 spr NS DAILY 09/16/17 [History] Furosemide [Lasix] 40 mg PO DAILY 30 Days #30 tablet 09/22/17 [Rx] 3 Allergy/AdvReac Type Severity Reaction Status Date / Time No Known Allergies Allergy Verified 09/26/17 17:02 - Constitutional Constitutional ROS PAL: fatigue - Cardiovascular Cardiovascular ROS: dyspnea on exertion, edema, irregular heart rhythm, leg edema, no chest pain - Respiratory Respiratory: dyspnea - Gastrointestinal Gastrointestinal: abdominal pain, change in stool character, melena, no constipation, no nausea, no vomiting (dry heeves.) - Psychiatric Psychiatric general PM: no anxiety Palliative Care-Exam - Constitutional Vitals: Temp Pulse Resp BP Pulse Ox 97.9 F 79 18 151/93 96 10/01/17 11:09 10/01/17 11:09 10/01/17 11:09 10/01/17 11:09 10/01/17 11:09 General appearance: Present: cooperative, no acute distress - Head Head Exam: Present: atraumatic, normal inspection - Eye Eye exam: Present: EOMI, normal appearance, PERRL, conjuntiva pink Pupils: Present: PERRL. Absent: fixed - ENT ENT exam: Present: mucous membranes moist, normal external ear exam - Expanded ENT Exam Mouth Exam: Absent: drooling - Neck Neck exam: Present: full ROM, normal inspection - Expanded Neck Exam Neck exam: Absent: tenderness - Respiratory Respiratory exam: Present: decreased breath sounds. Absent: accessory muscle use, respiratory distress - Cardiovascular Cardiovascular exam: Present: irregular rhythm, +S1, +S2 - Expanded Cardiovascular Exam Peripheral pulses: 2+: Radial (L), Radial (R) - GI/Abdominal Exam GI/Abdominal exam: Present: normal bowel sounds, soft. Absent: tenderness - Rectal Rectal exam: Present: deferred - Extremities Exam Extremities exam: Present: full ROM (BUE), pedal edema (legs wrapped with dressing) - Neurological Exam Neurological exam: Present: alert, oriented X3. Absent: facial droop, speech deficit - Expanded Neurological Exam Coma Scale Eye Opening: Spontaneous Coma Scale Motor Response: Obeys Commands Coma Scale Verbal Response: Oriented Coma Scale Total: 15 - Psychiatric Psychiatric exam: Present: normal affect, normal mood. Absent: anxious - Skin Skin exam: Present: dry, warm. Absent: mottled Internal Medicine - CN: Reslt - Labs CBC & Chem 7: 10/01/17 05:35 10/01/17 05:35 Labs: Short CBC 10/01/17 Range/Units 05:35 WBC 5.3 (4.3-11.1) K/mcL Hgb 8.9 L (11.5-15.4) g/dL Hct 28.5 L (35.3-44.9) % Plt Count 93 L (140-400) K/mcL Neutrophils # 3.3 (1.6-8.9) K/mcL BMP 10/01/17 05:35 Sodium 150 H Potassium 3.7 Chloride 100 Carbon Dioxide 44 H* BUN 38 H Creatinine 1.62 H Glucose 95 Calcium 9.3 - ABG Interpretation ABG results: ABG ABG pH 7.46 pH Units (7.32-7.45) H 09/30/17 17:44 ABG pCO2 72 mmHg (35-45) H* 09/30/17 17:44 ABG pO2 76 mmHg (85-104) L 09/30/17 17:44 ABG O2 Saturation 95 % (95-98) 09/30/17 17:44 PT/INR, D-dimer PT 13.6 Seconds (9.4-12.1) H 10/01/17 09:36 Consult Discharge Plan - Plan Referrals: Shelly Chowdhury, [employer] [Advanced Practice Nurse] - (Pt is From [facility] no PCP appointment needed) Palliative Quality Palliative Quality: Screen for Code Status: Yes, Screen for Goals of Care: Yes, Screen for Pain: Yes, If Pain Regimen Started, Initiate Bowel Regimen: NA, Screen for Nausea/Vomitting: Yes Code Status: 09/26/17 23:43 Resuscitation Status: Active [RES] Routine Comment: Resuscitation Status: [id number]
--- NOTE | 2017-10-01 16:13 | Internal Med Progress Note ---
Hospitalist Progress Note - Encounter Date of Encounter: 10/01/17 Time of Encounter: 16:11 - Subjective Interval History: Patient is awake alert oriented, communicative. Patient required BiPAP overnight. Her CO2 level goes up especially at the end of the day she does not use BiPAP during the daytime. at bedside. Review the lab Patient denies fever chills nausea vomiting headache dizziness chest pain shortness of breath abdominal pain. - Exam Vitals: Temp Pulse Resp BP Pulse Ox 98.4 F 89 18 153/98 96 10/01/17 15:59 10/01/17 15:59 10/01/17 15:59 10/01/17 15:59 10/01/17 15:59 Exam: General appearance: no acute distress, alert ENT: oropharynx moist Neck: supple Effort: mildly labored Auscultation: bilateral: diminished breath sounds . Crepitation on right side Cardiovascular: irregular rhythm Gastrointestinal: soft, non-tender, positive bowel sounds Integumentary: other (in a wrap for leg edema) Extremities: +1 edema HEALTHCARE MANAGEMENT CONSULTANT -grossly intact cranial nerve II-12, motor symmetrical and equal in all 4 extremity. mood appropriate, affect normal - Assessment and Plan (1) Respiratory failure with hypoxia and hypercapnia Current Visit: Yes Status: Acute Assessment and Plan: Acute on chronic respiratory failure. Multifactorial-worsening COPD along with an large hiatal hernia making respiratory difficult, pneumonia, pleural effusion. Now BiPAP dependent and easy to get CO2 narcosis. Worsening of pleural effusion on chest x-ray therefore consulted manager net who did not recommend thoracentesis due to large hiatal hernia that put patient at risk and advise palliative care consultation. Discussed with family and patient. Consulted palliative care. (2) Pneumonia Current Visit: Yes Status: Acute Assessment and Plan: Chest x-ray bilateral opacity but worse on the right lower lobe. Normal white count. Oxygen supplementation continue BiPAP, continue levofloxacin for total 7 days.Blood cultures so far negative. Negative urine legionella. Pending strep pneumoniae antigen, patient refused nasal MRSA screen. continue IV Levaquin . Discontinued Vancomycin and Zosyn. Continue supportive care and supplemental oxygen. (3) VICKI (acute kidney injury) Current Visit: Yes Status: Acute Assessment and Plan: Acute on CK D. Baseline serum creatinine noted to be 1.3-1.5. Trending down creatinine level. A strict I&O's, avoid nephrotoxic drug. Continue to monitor closely as patient is on IV diuresis. (4) Acute on chronic diastolic (congestive) heart failure Current Visit: Yes Status: Acute Assessment and Plan: Echocardiogram during previous admission showed preserved EF, diastolic dysfunction with elevated filling pressures, moderate to severe mitral annular calcification, mild to moderate MR and MS, moderate , moderate TR, severe pulmonary hypertension. Cardiology was consulted who advise for conservative medical management. continue diuresis with IV Lasix, fluid restriction, strict I&O's. Will change to oral Lasix on discharge. Recommend conservative medical management for valvular heart disease. Continue telemetry monitoring. Serial troponins not suggestive of ACS. (5) Atrial fibrillation Current Visit: Yes Status: Acute Assessment and Plan: PAF with controlled rate. EKG at admission revealed atrial fibrillation. Cardiology consult appreciated, patient acknowledges history of atrial fibrillation. Continue Beta krishna . Manual Winder recommended aspirin as anticoagulation. (6) Generalized weakness Current Visit: Yes Status: Acute Assessment and Plan: Consulted PT OT. (7) Goals of care, counseling/discussion Current Visit: Yes Status: Acute Assessment and Plan: Palliative care consult was done due to worsening of lung condition and underlying multiple medical comorbidities. CODE STATUS changed to DNR CCA DNI. I updated patient and her about the progressive medical condition with poor prognosis as well. (8) Thrombocytopenia Current Visit: Yes Status: Acute Assessment and Plan: Trending down platelet level therefore will stop heparin. Continue SCDs (9) Hiatal hernia Current Visit: Yes Status: Chronic Assessment and Plan: Very large. Therefore no thoracentesis was performed due to fear of perforation during the procedure (10) Hypertension Current Visit: Yes Status: Chronic Assessment and Plan: Continue beta krishna. Close monitoring of BP (11) Hypernatremia Current Visit: Yes Status: Acute Assessment and Plan: Most likely due to dehydration secondary to overdiuresis for worsening pleural effusion. Difficult situation if we stop Lasix then patient will have breathing difficulty due to already worsening pleural effusion on the other hand it was also causing free water loss creating rise in sodium level (12) DVT prophylaxis Current Visit: Yes Status: Acute Assessment and Plan: SCDs, heparin subcutaneous - Time Spent with Patient Total time spent is greater than 50% in coordination of care (as documented) at patient's floor/unit and/or counseling patient: Greater than 35 minutes (spent more than 35 mins in pt care, communication with pt, family, nursing staff and consultants) Internal Medicine: Result - Labs CBC & Chem 7: 10/01/17 05:35 10/01/17 05:35 Labs: Short CBC 10/01/17 Range/Units 05:35 WBC 5.3 (4.3-11.1) K/mcL Hgb 8.9 L (11.5-15.4) g/dL Hct 28.5 L (35.3-44.9) % Plt Count 93 L (140-400) K/mcL Neutrophils # 3.3 (1.6-8.9) K/mcL BMP 10/01/17 05:35 Sodium 150 H Potassium 3.7 Chloride 100 Carbon Dioxide 44 H* BUN 38 H Creatinine 1.62 H Glucose 95 Calcium 9.3 - ABG Interpretation ABG results: ABG ABG pH 7.46 pH Units (7.32-7.45) H 09/30/17 17:44 ABG pCO2 72 mmHg (35-45) H* 09/30/17 17:44 ABG pO2 76 mmHg (85-104) L 09/30/17 17:44 ABG O2 Saturation 95 % (95-98) 09/30/17 17:44 PT/INR, D-dimer PT 13.6 Seconds (9.4-12.1) H 10/01/17 09:36 - VTE Documentation of Mechanical Device: Intermittent pneumatic compression device Consult Discharge Plan - Plan Referrals: Shelly Chowdhury, OPERATOR ASSISTANT I CEMENTING [Advanced Practice Nurse] - (Pt is From [facility] no PCP appointment needed) (1) Respiratory failure with hypoxia and hypercapnia Qualifiers: Chronicity: acute on chronic Qualified Code(s): J96.21 - Acute and chronic respiratory failure with hypoxia; J96.22 - Acute and chronic respiratory failure with hypercapnia (2) Pneumonia Qualifiers: Pneumonia type: due to unspecified organism Laterality: bilateral Lung location: unspecified part of lung Qualified Code(s): J18.9 - Pneumonia, unspecified organism (5) Atrial fibrillation Qualifiers: Atrial fibrillation type: unspecified Qualified Code(s): I48.91 - Unspecified atrial fibrillation (10) Hypertension Qualifiers: Hypertension type: essential hypertension Qualified Code(s): I10 - Essential (primary) hypertension
[2017-10-01] MEDS ORDERED: Ondansetron ODT 4 MG TAB.RAPDIS SL ONE (19:49)
[2017-10-02] MEDS: Multivit/Ca/Min/Fe/FA 1 TAB TABLET PO SCH (08:44)
[2017-10-02] MEDS: Cholecalciferol (D-3) 1,000 UNIT TABLET PO SCH (08:44)
[2017-10-02] MEDS: Aspirin Enteric Coated 81 MG Tablet PO SCH (08:44)
[2017-10-02] MEDS: Furosemide 40 MG/4 ML VIAL IVP SCH ×2 (08:44→16:17)
[2017-10-02] MEDS: Fluticasone Propionate Nasal 50 MCG/SPRAY BOTTLE NS SCH (08:53)
--- NOTE | 2017-10-02 16:09 | Palliative Progress Note ---
Date of Encounter: 10/02/17 Time of Encounter: 15:00 - Assessment and plan (1) Dyspnea and respiratory abnormalities Current Visit: No Status: Acute Assessment and plan: Patient with Rt pleural effusion and pneumonia on CXR. Dr. Garner from pulmonology discussed results with family yesterday. Patient not a candidate d/ t large hiatal hernia. Patient requiring Bipap and supplemental O2. Patient currently on levoquin. Case discussed with Dr. Traore. Patient with multiple comorbid conditions. Plan: Bipap PRN Duonebs Lasix Levaquin (2) Counseling regarding advanced directives and goals of care Current Visit: Yes Status: Acute Assessment and plan: Conducted bedside meeting with (Marcio), daughter (Ashleigh), and son, Garrett Baldwin lay out worker and Bubba Montano [employer]. Discussed patients current diagnosis and inability to have pleural effusion removed via thoracentesis. Discussed the terminal need for increased oxygen and care as this would continue to be an increasing issue with her breathing. Patient currently participating in PT and desires to return to ECF if able to do skilled PT. Discussed all options for discharge. Discussed the increased need for care to manage dyspnea and fluid build-up. Discussed Bipap at home and ECF for management of dyspnea as temporary adjunct for care. Explained that Bipap is not used 24 hours as a chcf intervention. Explained options for DC regarding Hospice care at home or at ECF. Family desires to discuss options this evening and will f/u in AM. Anticipate DC to ECF and patient services specialist to call ECF. (3) Pneumonia Current Visit: Yes Status: Acute Assessment and plan: Patient on levaquin. Pulmonology managing. Qualifiers: Pneumonia type: due to unspecified organism Laterality: right Lung location: lower lobe of lung Qualified Code(s): J18.1 - Lobar pneumonia, unspecified organism (4) CO2 narcosis Current Visit: Yes Status: Acute Assessment and plan: Bipap as needed, supplemental O2 and lasix. - Time Spent With Patient Total time spent is greater than 50% in coordination of care (as documented) at patient's floor/unit and/or counseling patient: Greater than 35 minutes (Family meeting) - Subjective Interval history: Patient in bed. Family at bedside. Patient requiring Bipap for night support and prn. Currently on NC O2 and tolerating well. Reports feeling better overall. Family meeting conducted. - Constitutional Vitals: Abnormal lab results RBC 2.45 M/mcL (3.82-4.97) L 10/01/17 05:35 Hgb 8.9 g/dL (11.5-15.4) L 10/01/17 05:35 Hct 28.5 % (35.3-44.9) L 10/01/17 05:35 MCV 116.3 fL (83.0-100.0) H 10/01/17 05:35 MCH 36.3 pg (28.0-33.3) H 10/01/17 05:35 MCHC 31.2 g/dL (31.6-35.5) L 10/01/17 05:35 RDW 17.2 % (11.5-14.5) H 10/01/17 05:35 Plt Count 93 K/mcL (140-400) L 10/01/17 05:35 Platelet Estimate Slight Decrease (Normal) L 10/01/17 05:35 Anisocytosis 1+ (Not Present) A 09/29/17 03:43 Macrocytosis Present (Not Present) A 10/01/17 05:35 PT 13.6 Seconds (9.4-12.1) H 10/01/17 09:36 ABG pH 7.46 pH Units (7.32-7.45) H 09/30/17 17:44 ABG pCO2 72 mmHg (35-45) H* 09/30/17 17:44 ABG pO2 76 mmHg (85-104) L 09/30/17 17:44 ABG HCO3 51 mEq/L (21-27) H 09/30/17 17:44 ABG Total CO2 53 mEq/L (20-26) H 09/30/17 17:44 ABG Base Excess 23 mEq/L (-2 to 3) H 09/30/17 17:44 Sodium 150 mEq/L (136-145) H 10/01/17 05:35 Carbon Dioxide 44 mEq/L (23-29) H* 10/01/17 05:35 BUN 38 mg/dL (8-23) H 10/01/17 05:35 Creatinine 1.62 mg/dL (0.60-1.20) H 10/01/17 05:35 Est GFR ( Amer) 37 (> 60) L 10/01/17 05:35 Est GFR (Non-Af Amer) 31 (> 60) L 10/01/17 05:35 Calculated Osmolality 319 (280-300) H 10/01/17 05:35 Troponin I 0.06 ng/mL (< 0.04) H* 09/27/17 05:56 B-Natriuretic Peptide 1205 pg/mL (Less than 100) H 09/26/17 16:54 Urine Clarity Cloudy (Clear) A 09/27/17 09:40 Urine Blood Small (Negative) H 09/27/17 09:40 Ur Leukocyte Esterase Large (Negative) H 09/27/17 09:40 Urine Microscopic WBC TNTC per hpf (0-3) H 09/27/17 09:40 Ur Culture Indicated? YES (NO) A 09/27/17 09:40 Vancomycin Trough 16 mcg/mL (5-10) H 09/28/17 19:06 Antibody Screen POSITIVE A 09/26/17 16:54 - Head Head exam: Present: atraumatic, normal inspection - Eye Eye exam: Present: PERRL Pupils: Present: PERRL - ENT ENT exam: Present: mucous membranes moist - Neck Neck exam: Present: full ROM - Respiratory Respiratory exam: Present: decreased breath sounds, prolonged expiratory phase - Expanded Respiratory Exam Location: decreased breath sounds: Left, Right, Lower, dullness to percussion: Right, Upper, Lower, wheezes: Left, Right, Upper (scattered) - Cardiovascular Cardiovascular exam: Present: RRR, +S1, +S2 - Expanded Cardiovascular Exam Peripheral pulses: 1+: Femoral (L) PM, Femoral (R) PM, Posterior Tibialis (L), Posterior Tibialis (R), 2+: Carotid (L) PM, Carotid (R) PM, Radial (L), Radial ( R), Dorsalis Pedis (L) PM, Dorsalis Pedis (R) PM - Extremities Exam Extremities exam: Present: tenderness - Neurological Exam Neurological exam: Present: alert, oriented X3 - Psychiatric Psychiatric exam: Present: normal affect, normal mood - Skin Skin exam: Present: pallor Palliative Quality Palliative Quality: Screen for Code Status: Yes, Screen for Goals of Care: Yes, Screen for Pain: Yes, If Pain Regimen Started, Initiate Bowel Regimen: NA, Screen for Nausea/Vomitting: Yes Code Status: 09/26/17 23:43 Resuscitation Status: Active [RES] Routine Comment: Resuscitation Status: [id number] - Labs CBC & Chem 7: 10/01/17 05:35 10/01/17 05:35 - ABG Interpretation ABG results: ABG ABG pH 7.46 pH Units (7.32-7.45) H 09/30/17 17:44 ABG pCO2 72 mmHg (35-45) H* 09/30/17 17:44 ABG pO2 76 mmHg (85-104) L 09/30/17 17:44 ABG O2 Saturation 95 % (95-98) 09/30/17 17:44 PT/INR, D-dimer PT 13.6 Seconds (9.4-12.1) H 10/01/17 09:36 Consult Discharge Plan - Plan Referrals: Shelly Chowdhury, LIVE SOURCE OPERATOR [Advanced Practice Nurse] - (Pt is From ECF no PCP appointment needed)
--- NOTE | 2017-10-02 16:15 | Internal Med Progress Note ---
Hospitalist Progress Note - Encounter Date of Encounter: 10/02/17 Time of Encounter: 16:12 - Subjective Interval History: Patient is awake alert oriented, communicative. Patient is BiPAP dependent. Family at bedside. Talked to palliative care team. Her CO2 level goes up especially at the end of the day she does not use BiPAP during the daytime. Patient denies fever chills nausea vomiting headache dizziness chest pain shortness of breath abdominal pain. - Exam Vitals: Temp Pulse Resp BP Pulse Ox 98.6 F 93 18 141/84 98 10/02/17 16:00 10/02/17 16:00 10/02/17 16:00 10/02/17 16:10/02/17 16:00 Exam: General appearance: no acute distress. Alert awake oriented 3. family at bedside ENT: oropharynx moist Neck: supple Effort: mildly labored Auscultation: bilateral: diminished breath sounds . Crepitation on right side Cardiovascular: irregular rhythm Gastrointestinal: soft, non-tender, positive bowel sounds Extremities: +1 edema in Lenard wrap for edema MULE OPERATOR -grossly intact cranial nerve II-12, motor symmetrical and equal in all 4 extremity. mood appropriate, affect normal - Assessment and Plan (1) Respiratory failure with hypoxia and hypercapnia Current Visit: Yes Status: Acute Assessment and Plan: Acute on chronic respiratory failure. Multifactorial-worsening COPD along with an large hiatal hernia making respiratory difficult, pneumonia, pleural effusion. Now BiPAP dependent and easy to get CO2 narcosis. Worsening of pleural effusion on chest x-ray therefore consulted petrol tanker driver who did not recommend thoracentesis due to large hiatal hernia that put patient at risk and advise palliative care consultation. Discussed with family and patient. On board palliative team and appreciate the recommendation (2) Pneumonia Current Visit: Yes Status: Acute Assessment and Plan: Chest x-ray bilateral opacity but worse on the right lower lobe. Normal white count. Oxygen supplementation continue BiPAP, continue levofloxacin for total 7 days.Blood cultures so far negative. Negative urine legionella. Negative strep pneumoniae antigen, patient refused nasal MRSA screen. Discontinued Vancomycin and Zosyn. Continue supportive care and supplemental oxygen. (3) VICKI (acute kidney injury) Current Visit: Yes Status: Acute Assessment and Plan: Acute on CK D. Baseline serum creatinine noted to be 1.3-1.5. Trending down creatinine level. A strict I&O's, avoid nephrotoxic drug. Continue to monitor closely as patient is on IV diuresis. (4) Acute on chronic diastolic (congestive) heart failure Current Visit: Yes Status: Acute Assessment and Plan: Echocardiogram during previous admission showed preserved EF, diastolic dysfunction with elevated filling pressures, moderate to severe mitral annular calcification, mild to moderate MR and MS, moderate , moderate TR, severe pulmonary hypertension. Cardiology was consulted who advise for conservative medical management. continue diuresis with IV Lasix, fluid restriction, strict I&O's. Will change to oral Lasix on discharge. Recommend conservative medical management for valvular heart disease. Continue telemetry monitoring. Serial troponins not suggestive of ACS. (5) Atrial fibrillation Current Visit: Yes Status: Acute Assessment and Plan: PAF with controlled rate. EKG at admission revealed atrial fibrillation. Cardiology consult appreciated, patient acknowledges history of atrial fibrillation. Continue Beta krishna . Special Ed Assistant recommended aspirin as anticoagulation. (6) Generalized weakness Current Visit: Yes Status: Acute Assessment and Plan: Consulted PT OT. (7) Goals of care, counseling/discussion Current Visit: Yes Status: Acute Assessment and Plan: Palliative care consult was done due to worsening of lung condition and underlying multiple medical comorbidities. CODE STATUS changed to DNR CCA DNI. Palliative care team talked in length with patient and family about long-term plan. Finally decided to send patient back to [facility] on BiPAP and other supportive care. Family will decide about hospice care eventually after discussion with her family members. Plan to discharge patient tomorrow back to [facility]. (8) Thrombocytopenia Current Visit: Yes Status: Acute Assessment and Plan: Continue SCDs (9) Hiatal hernia Current Visit: Yes Status: Chronic Assessment and Plan: Very large. Therefore no thoracentesis was performed due to fear of perforation during the procedure (10) Hypertension Current Visit: Yes Status: Chronic Assessment and Plan: Continue beta krishna. Close monitoring of BP (11) Hypernatremia Current Visit: Yes Status: Acute Assessment and Plan: Most likely due to dehydration secondary to overdiuresis for worsening pleural effusion. Difficult situation if we stop Lasix then patient will have breathing difficulty due to already worsening pleural effusion on the other hand it was also causing free water loss creating rise in sodium level. BMP (12) DVT prophylaxis Current Visit: Yes Status: Acute Assessment and Plan: SCDs - Time Spent with Patient Total time spent is greater than 50% in coordination of care (as documented) at patient's floor/unit and/or counseling patient: 25 - 35 minutes (Discuss plan with palliative team and family) Internal Medicine: Result - Labs CBC & Chem 7: 10/01/17 05:35 10/01/17 05:35 - ABG Interpretation ABG results: ABG ABG pH 7.46 pH Units (7.32-7.45) H 09/30/17 17:44 ABG pCO2 72 mmHg (35-45) H* 09/30/17 17:44 ABG pO2 76 mmHg (85-104) L 09/30/17 17:44 ABG O2 Saturation 95 % (95-98) 09/30/17 17:44 PT/INR, D-dimer PT 13.6 Seconds (9.4-12.1) H 10/01/17 09:36 - VTE Documentation of Mechanical Device: Graduated compression elastic hosiery Consult Discharge Plan - Plan Referrals: Shelly Chowdhury, COIL WINDING SUPERVISOR [Advanced Practice Nurse] - (Pt is From ECF no PCP appointment needed) (1) Respiratory failure with hypoxia and hypercapnia Qualifiers: Qualified Code(s): J96.21 - Acute and chronic respiratory failure with hypoxia ; J96.22 - Acute and chronic respiratory failure with hypercapnia (2) Pneumonia Qualifiers: Qualified Code(s): J18.9 - Pneumonia, unspecified organism (5) Atrial fibrillation Qualifiers: Qualified Code(s): I48.91 - Unspecified atrial fibrillation (10) Hypertension Qualifiers: Qualified Code(s): I10 - Essential (primary) hypertension
[2017-10-02] MEDS ORDERED: Ondansetron ODT 4 MG TAB.RAPDIS SL PRN (17:31)
[2017-10-03 04:02] LABS: Mean Platelet Volume 12.1 fL (9.4-12.4); Red Cell Distribution Width 16.9 % (11.5-14.5)
[2017-10-03 04:03] LABS: Basophils % 0.3 %; Eosinophils # 0.4 K/mcL (0.0-0.6); Eosinophils % 6.8 %; Hematocrit 29.2 % (35.3-44.9); Immature Granulocytes % 0.3 % (0-4); Immature Platelets 8.1 % (1.1-6.1); Lymphocytes % 17.1 %; Mean Corpuscular HGB Conc 30.8 g/dL (31.6-35.5); Mean Corpuscular Hemoglobin 36.3 pg (28.0-33.3); Mean Corpuscular Volume 117.7 fL (83.0-100.0); Monocytes # 0.6 K/mcL (0.0-1.3); Monocytes % 10.5 %; Neutrophils # 3.8 K/mcL (1.6-8.9); Red Blood Count 2.48 M/mcL (3.82-4.97)
[2017-10-03 04:13] LABS: Platelet Count 74 K/mcL (140-400)
[2017-10-03 04:23] LABS: BUN/Creatinine Ratio 25 (6-26); Blood Urea Nitrogen 44 mg/dL (8-23); Calcium 9.4 mg/dL (8.6-10.3); Carbon Dioxide > 45 mEq/L (23-29); Chloride 99 mEq/L (98-107); Glucose 94 mg/dL (70-105); Osmolality,Calculated 319 (280-300); Potassium 4.3 mEq/L (3.5-5.1); Sodium 149 mEq/L (136-145); eGFR For Non-African Americans 27 (> 60)
[2017-10-03 04:39] LABS: Macrocytosis Present (Not Present); Microcytosis Present (Not Present); Stomatocytes 1+ (Not Present); Tear Drop Cells 1+ (Not Present)
[2017-10-03 04:40] LABS: Anisocytosis 1+ (Not Present); Platelet Estimate Decreased (Normal)
--- NOTE | 2017-10-03 09:09 | Event Note ---
Date of Encounter: 10/03/17 Time of Encounter: 08:50 Patient sitting up on BSC upon arrival. Reports feeling well. Denies pain, dyspnea, anxiety, nausea, or vomiting. Patient plans to return to ECF as skilled patient today. No family present at bedside. Assisted back from bedside commode to chair with 2 person assist.
[2017-10-03] MEDS: Multivit/Ca/Min/Fe/FA 1 TAB TABLET PO SCH (09:43)
[2017-10-03] MEDS: Furosemide 40 MG/4 ML VIAL IVP SCH (09:43)
[2017-10-03] MEDS: Aspirin Enteric Coated 81 MG Tablet PO SCH (09:43)
[2017-10-03] MEDS: Cholecalciferol (D-3) 1,000 UNIT TABLET PO SCH (09:43)
[2017-10-03] MEDS: levoFLOXacin 500 MG TABLET PO SCH (09:43)
[2017-10-03] MEDS: Fluticasone Propionate Nasal 50 MCG/SPRAY BOTTLE NS SCH (09:44)
[2017-10-03 16:31] VITALS: BP 151/99
[2017-10-03] MEDS ORDERED: Furosemide 40 MG TABLET PO SCH (17:00)
--- NOTE | 2017-10-03 17:01 | Discharge Summary ---
- NOTES TO OUTPATIENT PROVIDER Notes to Outpatient Provider: Follow with PCP-in 3-5 day. Continue BiPAP overnight and also daytime at least 4 hour as easy to build up CO2 in blood- cause CO2 narcosis. Symptomatic management of pleural effusion with diuresis. Follow with cardiology as needed Orders not resulted at time of discharge: Pending orders 09/28/17 09:15 MRSA Surveillance Screen [MOLMIC] Routine Date of Encounter: 10/03/17 Time of Encounter: 16:59 - Discharge Diagnosis (1) Respiratory failure with hypoxia and hypercapnia Priority: Primary Status: Acute Assessment and Plan: Acute on chronic respiratory failure. Multifactorial-worsening COPD along with an large hiatal hernia making respiratory difficult, pneumonia, pleural effusion. Now BiPAP dependent and easy to get CO2 narcosis. 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 Discussed with family and patient. On board palliative team and appreciate the recommendation Qualifiers: Chronicity: acute on chronic Qualified Code(s): J96.21 - Acute and chronic respiratory failure with hypoxia; J96.22 - Acute and chronic respiratory failure with hypercapnia (2) Pneumonia Priority: Primary Status: Acute Assessment and Plan: Chest x-ray bilateral opacity but worse on the right lower lobe. Normal white count. Oxygen supplementation continue BiPAP, continue levofloxacin for total 7 days and she will need 1 more dose of Levaquin on 2017 at 10 AM. Blood cultures so far negative. Negative urine legionella. Negative strep pneumoniae antigen, patient refused nasal MRSA screen. Discontinued Vancomycin and Zosyn. Continue BiPAP as mentioned above Qualifiers: Pneumonia type: due to unspecified organism Laterality: bilateral Lung location: unspecified part of lung Qualified Code(s): J18.9 - Pneumonia, unspecified organism (3) VICKI (acute kidney injury) Priority: Primary Status: Acute Assessment and Plan: Acute on CK D. Baseline serum creatinine noted to be 1.3-1.5. Still not baseline creatinine level and that could be due to overdiuresis as well. Difficult to manages diuresis versus hydration due to underlying symptomatic pleural effusion. Continue supportive treatment with Lasix and BiPAP as mentioned above and avoid nephrotoxic drug . (4) Acute on chronic diastolic (congestive) heart failure Priority: Primary Status: Acute Assessment and Plan: Echocardiogram during previous admission showed preserved EF, diastolic dysfunction with elevated filling pressures, moderate to severe mitral annular calcification, mild to moderate MR and MS, moderate , moderate TR, severe pulmonary hypertension. Cardiology was consulted who advise for conservative medical management. continue diuresis with IV Lasix, fluid restriction, strict I&O's. Will discharge patient on 40 mg by mouth twice a day and further adjustment of dose as per facility physician or PCP . Recommended conservative medical management for valvular heart disease. (5) Atrial fibrillation Priority: Primary Status: Acute Assessment and Plan: PAF with controlled rate. EKG at admission revealed atrial fibrillation. Cardiology consult appreciated, patient acknowledges history of atrial fibrillation. Continue Beta krishna . Abrasive Coating Machine Operator recommended aspirin as anticoagulation. Qualifiers: Atrial fibrillation type: unspecified Qualified Code(s): I48.91 - Unspecified atrial fibrillation (6) Generalized weakness Priority: Primary Status: Acute Assessment and Plan: On board PT OT. (7) Goals of care, counseling/discussion Priority: Primary Status: Acute Assessment and Plan: Palliative care consult was done due to worsening of lung condition and underlying multiple medical comorbidities. CODE STATUS changed to DNR CCA DNI. Palliative care team talked in length with patient and family about long-term plan. Finally decided to send patient back to [facility] on BiPAP and other supportive care. Family will decide about hospice care eventually after discussion with other family members and how patient does clinically at detention. Plan to discharge patient today back to detention. (8) Thrombocytopenia Priority: Primary Status: Acute Assessment and Plan: Continue SCDs (9) Hiatal hernia Priority: Secondary Status: Chronic Assessment and Plan: Very large. Therefore no thoracentesis was performed due to fear of perforation during the procedure (10) Hypertension Priority: Secondary Status: Chronic Assessment and Plan: Continue beta krishna. Close monitoring of BP Qualifiers: Hypertension type: essential hypertension Qualified Code(s): I10 - Essential (primary) hypertension (11) Hypernatremia Priority: Primary Status: Acute Assessment and Plan: Most likely due to dehydration secondary to overdiuresis for worsening pleural effusion. Difficult situation if we stop Lasix then patient will have breathing difficulty due to already worsening pleural effusion on the other hand it was also causing free water loss creating rise in sodium level. Hospital course: Ms. Monique is a 81 year old female patient got admitted for acute on chronic shortness of breath due to multiple underlying medical problem. Please see details in diagnosis section of discharge summary. Patient is being transferred back to nursing home facility today. During transfer patient is clinically and hemodynamically stable. Discharge discussed with: patient, family, case management, alliance consultant - Time Spent with Patient Total time spent providing and/or coordinating discharge services: Greater than 30 minutes - Discharge Medications Home Medications: Mv-Mn/FA/Vit K/Lycop/Lut/Coq10 [Daily Multivitamin Capsule] 1 tab PO DAILY 05/27 [History] Calcium Carbonate/Vitamin D3 [Calcium 500 + Vit D Caplet] 1 each PO BID [History] Docusate [Colace] 100 mg PO BID PRN 06/26/16 [History] Pantoprazole Sodium [Protonix] 40 mg PO DAILY 06/26/16 [History] Ferrous Sulfate [Iron] 325 mg PO DAILY 02/11/17 [History] Aspirin 81 mg PO Q48H #0 09/07/17 [Rx] Carvedilol 12.5 mg PO BID #60 tab 09/07/17 [Rx] Fluticasone Propionate Nasal [Flonase] 1 spr NS DAILY 09/16/17 [History] Furosemide [Lasix] 40 mg PO BIDDIURETIC tablet 10/03/17 [Rx] Ipratropium/Albuterol Neb [Duoneb] 3 ml IH [id number] PRN inhsol 10/03/17 [Rx] Ondansetron ODT [Zofran ODT] 4 mg SL Q8HR PRN tab.rapdis 10/03/17 [Rx] Potassium Chloride 10 meq PO BIDWM tab.er.prt 10/03/17 [Rx] levoFLOXacin [Levaquin] 500 mg PO Q48H tablet 10/03/17 [Rx] Allergies/Adverse Reactions: 3 Allergy/AdvReac Type Severity Reaction Status Date / Time No Known Allergies Allergy Verified 09/26/17 17:02 Date of admission: 09/27/17 11:36 Primary care physician: Maya Dumont CNP Consults: 09/29/17 09:40 Consult to Physical Therapy [CONS] Routine Comment: Evaluate, develop and implement POC Reason for Consult: deconditioning, discharge planning Does patient have active BEDREST order?: No Is patient medically & hemodynamically stable?: Yes Patient assessed for mobility or mobilized this visit?: Yes 09/29/17 09:41 Consult to Occupational Therapy [CONS] Routine Comment: Evaluate, develop and implement POC Reason for Consult: deconditioning, discharge planning Does patient have active BEDREST order?: No Is patient medically & hemodynamically stable?: Yes Patient assessed for mobility or mobilized this visit?: Yes 09/29/17 09:58 Consult to Tablet Repair [CONS] Routine Reason for SW Consult: Return to [facility]. 09/30/17 18:11 Consult to Pulmonology [CONS] Routine Consulting Provider: [facility] [place] Reason for Consult: Worsening pleural effusion Call Completed: Yes 10/01/17 13:39 Consult to Palliative Care [CONS] Routine Comment: Consulting Provider: [facility] Reason for Consult: BiPAP dependent, severe underlying pulmonary problem Call Completed: Yes - Constitutional Vitals: Temp Pulse Resp BP Pulse Ox 96.6 F L 86 18 151/99 97 10/03/17 16:28 10/03/17 16:28 10/03/17 16:28 10/03/17 16:28 10/03/17 16:28 General appearance: Present: cooperative, A&O X 3, obese, answers questions appropriately Exam: General appearance: No acute distress, A&O X 3 Head exam: Atraumatic Eye exam: EOMI, PERRLA ENT exam: Moist oral mucosa Neck nontender, supple Respiratory exam: Bilateral crepitation- Cardiovascular exam: Regular rate and rhythm, no systolic murmur Abdominal exam: Soft, nontender, nondistended, positive bowel sounds Extremities exam: No calf tenderness, +1 pedal edema Present-Lenard wrap in place Neurological exam: Grossly CN II-XII intact, no focal deficits. No facial droop. Normal speech. Normal gait. Motor 5 x 5 in all 4 extremities - Patient Status Disposition: Transfer SNF Condition: Fair Overall status at discharge: patient is not back to baseline - Discharge Instructions Follow Up With: Shelly Chowdhury NURSE OBGYN [Advanced Practice Nurse] - (Pt is From [facility] no PCP appointment needed) - Diet and Activity Activity: as per physical therapy Diet: low fat, low cholesterol, low salt diet - VTE Documentation of Mechanical Device: Intermittent pneumatic compression device
--- NOTE | 2017-10-03 17:22 | Physician Discharge Referral ---
ExtendedCare Referral Info Institutional Level of Care: Skilled - Diagnosis (1) Respiratory failure with hypoxia and hypercapnia Priority: Primary Status: Acute (2) Pneumonia Priority: Primary Status: Acute (3) VICKI (acute kidney injury) Priority: Primary Status: Acute (4) Acute on chronic diastolic (congestive) heart failure Priority: Primary Status: Acute (5) Atrial fibrillation Priority: Primary Status: Acute (6) Generalized weakness Priority: Primary Status: Acute (7) Goals of care, counseling/discussion Priority: Primary Status: Acute (8) Thrombocytopenia Priority: Primary Status: Acute (9) Hiatal hernia Priority: Secondary Status: Chronic (10) Hypertension Priority: Primary Status: Chronic (11) Hypernatremia Priority: Primary Status: Acute Prognosis: Poor Aware of Diagnosis: Patient, Family Aware of Prognosis: Patient, Family - Transfer Medications Home Medications: Mv-Mn/FA/Vit K/Lycop/Lut/Coq10 [Daily Multivitamin Capsule] 1 tab PO DAILY 05/27 [History] Calcium Carbonate/Vitamin D3 [Calcium 500 + Vit D Caplet] 1 each PO BID [History] Docusate [Colace] 100 mg PO BID PRN 06/26/16 [History] Pantoprazole Sodium [Protonix] 40 mg PO DAILY 06/26/16 [History] Ferrous Sulfate [Iron] 325 mg PO DAILY 02/11/17 [History] Aspirin 81 mg PO Q48H #0 09/07/17 [Rx] Carvedilol 12.5 mg PO BID #60 tab 09/07/17 [Rx] Fluticasone Propionate Nasal [Flonase] 1 spr NS DAILY 09/16/17 [History] Furosemide [Lasix] 40 mg PO BIDDIURETIC tablet 10/03/17 [Rx] Ipratropium/Albuterol Neb [Duoneb] 3 ml IH [id number] PRN inhsol 10/03/17 [Rx] Ondansetron ODT [Zofran ODT] 4 mg SL Q8HR PRN tab.rapdis 10/03/17 [Rx] Potassium Chloride 10 meq PO BIDWM tab.er.prt 10/03/17 [Rx] levoFLOXacin [Levaquin] 500 mg PO Q48H tablet 10/03/17 [Rx] Allergies/Adverse Reactions: 3 Allergy/AdvReac Type Severity Reaction Status Date / Time No Known Allergies Allergy Verified 09/26/17 17:02 - Respiratory Orders Other (BiPAP overnight and also during day as needed but preferable 3-4 hour.) Smoking Cessation: Smoking cessation has been advised. For more information, call the [place] Tobacco Quit Line at 7-131-LCST-NOW. - Advance Directives Code Status: DNR-Arrest/Don't Intubate - Mobility Orders Ambulate - Rehabiliation Orders Rehab Potential: Poor Rehab Orders: Evaluation for Physical Therapy, Evaluation for Occupational Therapy - Diet Orders Cardiac CERTIFICATION: I certify that the transfer of the above named patient to an Extended Care Facility is necessary for the continuing treatment of the diagnosis listed. The above information is true and accurate reflection of patient's current condition. Confidential - Redisclosure prohibited without a patient's written consent.
== END 2017-10-03 19:00 | DRG 291 ==
LOC: EMEROO 16:33 → 2NNU 16:33 → SUATTDRO 18:53 → 2NNU 20:09
PROVIDERS: ADMIT Internal Medicine; ATTEND Internal Medicine